=== PATIENT | male | born 1935 | race Caucasian/White ===

== ENCOUNTER 2019-01-28 03:32 | Inpatient (IN) ==
--- NOTE | 2019-01-28 03:47 | Emergency Department Note ---
ED Provider Note Name: Demar Nicholas Age: 83M Arrives Via: EMS Informant: Pt, EMS CC: Cough HPI: 83 male arrives for evaluation of productive cough. Patient with influenza last week and finished course of Tamiflu. Worsening cough over last few days. this evening increasing shortness of breath, even at rest. Worse with exertion. Tonight unable to sleep and notes pounding heart and bilateral arm discomfort. Denies chest pain, syncope, abdominal pain, leg swelling, nausea, vomiting, fevers. No medications prior to arrival. History of CHF, CAD and CVA with previous CABG. ROS: See above HPI for pertinent positives & negatives. A total of 10 systems reviewed and were otherwise negative. Past Medical History: COPD, HTN, HLD, CAD, BPH, GERD Past Surgical History: CABG Family History: States "Everyone Is " Social History: shelter pt, Smoker, denies etoh/drugs, retired Home Medications: Tylenol, aspirin, atorvastatin, carvedilol, vit d3, plavix, docusate, cosept opth, escitalopram, finasteride, lisinopril, tamsulosin Allergies Cephalexin, PNC, Ether Physical: Vitals: BP 167/79, P 135, O2 97%, RR 18, T 36.6 Exam: GENERAL: Patient is unwell appearing and in moderate distress. EYES: No scleral icterus, unremarkable pupils. ENT: Mucous membranes moist, no nasal congestion. NECK: No masses appreciated, no meningismus, trachea is midline. RESPIRATORY: Moderate dyspnea. Productive junky cough, crackles bilateral bases, mild wheezing throughout CARDIOVASCULAR: Tachy. No murmurs, rubs, gallops appreciated. GASTROINTESTINAL: Abdomen soft, non-tender, no peritonitis. Bowel sounds positive. No masses appreciated. BACK: No midline tenderness, no CVA tenderness EXTREMITIES: Normal motion all extremities, no cyanosis, no edema. NEUROLOGIC: Alert and oriented, no acute motor or sensory deficits, no focal weakness, cranial nerves grossly intact. SKIN: No rash, no jaundice, no diaphoresis. ED Course: Prior Medical Record, Triage/Nursing Notes, Medications, Allergies reviewed by Me Vital Signs: reviewed and remarkable for Tachy, Hypertension Labs: Reviewed and remarkable for elevated BNP Interventions: Saline Lock, NSS bolus 1L IV, Lopressor 5mg IV x 3, Aztreonam 2G IV, Vanco 2G IV Imaging: X ray results are stated below per my interpretation: Chest: 1 view: Large right middle/lower lobe infitrate with hazy boarders, no overt pulmonary edema noted. No effusion. This infiltrate is much larger than previously seen mass in right middle lobe on 09/2019. EKG: Per My Interpretation: #1: 03:39: Poor baseline with tachy rhythm 133bpm and mildly widened QRS with lateral ST depressions. QTC 398. This is acutely changed from EKG 09/2019 #2: 04:09: Aflutter RVR with 2:1 block at 135 bpm, lateral ST Depressions, no ectopy otherwise. This is similar though better baseline compared to earlier EKG. QTC is 477 on this ekg #3: 5:01: Aflutter with variable rate and HR 98 bpm, resolution of lateral ST depressions and qtc 428 compared to earlier EKGs Consults: Dr De Leon for further management Reassessments/Times: Multiple bedside evaluations, discussions and treatments. Blood pressure: Normal. No Referral necessary Disposition: Hospitalization Differentials: PNA, PE, Dissection, ACS, Arrythmia, Influenza, Sepsis, amongst other pathologies. Medical Decision Making: Pleasant 83 yr old male with recent diagnosis of mass RML who has made it clear he is DNR. Arrvies with shortness of breath, bilateral shoulder discomfort and tachycardia. Found to be in Aflutter RVR which was eventually slowed after 1 L NSS bolus and 2 rounds lopressor 5mg IV (ended up getting 3rd dose after return to RVR which once again slowed). history of CHF and BNP elevated though I suspect that he is more on the dry side by exam thus IV fluids. He has a large RLL infiltrate which I suspect is overlying his mass and given the hazy boarder I am inclined to this this infectious than solely the enlargement of mass. He does not appear to be septic as wbc/lactate OK and no fever but with tachy and cough I think broad spectrum abx indicated. Likely the infection that has flipped him to aflutter. He likely will need further anticoagulation than what he currently is on (plavix/asa) though with mass and risks I have discussed this with hospitalist cristinoil will further review with patient/family. Impression: Aflutter RVR Pneumonia RLL Right lung Mass Critical Care Time: I have personally spent greater than 30 minutes of critical care time in the direct management of this patient. Aflutter RVR in setting of Pneumonia requiring fluid resus and 3 doses IV Lopressor 5mg. This was a life/limb threatening event. This includes time spent evaluating patient, direct bedside care, chart review, placing orders, interpretation of diagnostic studies, discussion with consultants, patient, and family members, as well as other required patient management activities. This 30 minutes is in excess of all separately billable procedures. Mathieu Geiger MD Impression & Plan Atrial flutter with rapid ventricular response, Right lower lobe pneumonia, 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 Past Med/Surg History Medical History HTN (hypertension) (Acute) Arthritis (Chronic) BPH (benign prostatic hyperplasia) (Chronic) CAD (coronary artery disease) (Chronic) POA believes pt may have had an IL, pt states he was just short of breath and led to CABG being done. CHF (congestive heart failure) (Chronic 07/07/14) Chronic systolic. Compensated. Echo showed EF 50-55% and moderate . 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) [place] [facility] [place] of detached retina repair Social History Preferred Language: Estonian Communication Ability: Effective 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 Equipment Mechanic Required: No Beliefs That Will Affect Care: None marital status: Single Current Living Situation: Personal Care Facility Current Living Situation Comment: does not use ambulatory assist device current occupational status: retired current occupation: Former [employer] years Feels Safe at Home: Yes Safety Concerns: Feels Safe At This Time Smoking Status: Current every day smoker Hx Alcohol Use: No Hx Substance Use: No Results & Data Vital Signs Vital Signs - 24 hr 01/28/19 03:39 01/28/19 04:24 01/28/19 04:50 Temperature 36.6 C Temperature Source Oral Sepsis Recent Fever Within 48 Hours No Sepsis Action Taken by Nursing No Action Required Pulse Rate 135 H 129 H 128 H Pulse Rate [Bilateral] Pulse Rhythm Regular Pulse Rhythm [Bilateral] Pulse Strength Normal Pulse Strength [Bilateral] Respiratory Rate 18 Respiratory Effort / Characteristics Non-Labored Spontaneous Respiratory Depth Normal Respiratory Pattern Agonal Blood Pressure 167/79 H 145/90 H 140/80 Blood Pressure [Right Arm] Blood Pressure Mean 108 Blood Pressure Mean [Right Arm] Blood Pressure Position Lying Blood Pressure Position [Right Arm] Pulse Oximetry 97 Oxygen Delivery Method Room Air 01/28/19 05:00 01/28/19 05:26 01/28/19 05:32 Temperature Temperature Source Sepsis Recent Fever Within 48 Hours Sepsis Action Taken by Nursing Pulse Rate 130 H Pulse Rate [Bilateral] 90 87 Pulse Rhythm Pulse Rhythm [Bilateral] Regular Pulse Strength Pulse Strength [Bilateral] Normal Respiratory Rate 18 18 Respiratory Effort / Characteristics Non-Labored Spontaneous Non-Labored Spontaneous Respiratory Depth Normal Normal Respiratory Pattern Blood Pressure 116/76 Blood Pressure [Right Arm] 133/66 108/65 Blood Pressure Mean Blood Pressure Mean [Right Arm] 88 79 Blood Pressure Position Blood Pressure Position [Right Arm] Sitting Sitting Pulse Oximetry 97 98 Oxygen Delivery Method Room Air Room Air 01/28/19 06:01 01/28/19 06:07 Temperature 36.5 C Temperature Source Oral Sepsis Recent Fever Within 48 Hours Sepsis Action Taken by Nursing Pulse Rate 94 H Pulse Rate [Bilateral] 130 H Pulse Rhythm Pulse Rhythm [Bilateral] Regular Pulse Strength Pulse Strength [Bilateral] Normal Respiratory Rate 18 16 Respiratory Effort / Characteristics Non-Labored Spontaneous Respiratory Depth Normal Respiratory Pattern Regular Blood Pressure 100/74 Blood Pressure [Right Arm] 118/78 Blood Pressure Mean Blood Pressure Mean [Right Arm] 91 Blood Pressure Position Blood Pressure Position [Right Arm] Lying Pulse Oximetry 97 98 Oxygen Delivery Method Room Air Room Air Laboratory Data Result diagrams: 01/28/19 03:20 01/28/19 03:20 Lab Results 01/28/19 01/28/19 01/28/19 Range/Units 03:20 03:20 03:20 WBC 11.61 H (4.8-10.8) K/uL RBC 3.77 L (4.7-6.1) M/uL Hgb 10.6 L (14.0-18.0) g/dL Hct 32.6 L (42-52) % MCV 86.5 (80-100) fL MCH 28.1 (25-34) pg MCHC 32.5 (32-36) g/dL RDW Std Deviation 44.7 (36.4-46.3) fL RDW Coeff of Louise 14.3 (11.5-14.5) % Plt Count 285 (130-400) K/uL MPV 11.5 H (7.4-10.4) fL Immature Gran % (Auto) 0.2 % Neut % (Auto) 81.3 % Lymph % (Auto) 8.4 % [place] % (Auto) 7.6 % Eos % (Auto) 2.4 % Baso % (Auto) 0.1 % Immature Gran # (Auto) 0.02 (0.00-0.02) K/uL Neut # (Auto) 9.45 H (1.4-6.5) K/uL Lymph # (Auto) 0.97 L (1.2-3.4) K/uL [place] # (Auto) 0.88 H (0.11-0.59) K/uL Eos # (Auto) 0.28 (0-0.5) K/uL Baso # (Auto) 0.01 (0-0.2) K/uL Ovalocytes 1+ PT 11.3 (9.0-12.0) Seconds INR 1.1 (0.9-1.1) VBG pH (7.36-7.41) VBG pCO2 (38-50) mmHg VBG pO2 mmHg VBG HCO3 mmol/L VBG O2 Saturation % VBG Base Excess mEq/L Sodium 138 (136-145) mmol/L Potassium 3.7 (3.5-5.1) mmol/L Chloride 107 (98-107) mmol/L Carbon Dioxide 24 (21-32) mmol/L Anion Gap 7.0 (3-11) BUN 21 H (7-18) mg/dl Creatinine 0.79 (0.6-1.4) mg/dl Est Cr Clr Drug Dosing 63.9 ml/min Est GFR ( Amer) 96.2 Est GFR (Non-Af Amer) 83.0 BUN/Creatinine Ratio 26.0 H (10-20) Glucose 112 H (70-99) mg/dl Lactate (0.4-2.0) mmol/L Calcium 7.9 L (8.5-10.1) mg/dl Magnesium 1.9 (1.8-2.4) mg/dl Total Bilirubin 0.5 (0.2-1) mg/dl Direct Bilirubin 0.1 (0-0.2) mg/dl AST 16 (15-37) U/L ALT 20 (12-78) U/L Alkaline Phosphatase 75 (45-117) U/L Troponin I 0.033 (0-0.045) ng/ml NT-Pro-B Natriuret Pep 25595 H (0-1800) pg/ml Total Protein 6.5 (6.4-8.2) gm/dl Albumin 2.5 L (3.4-5.0) gm/dl Lipase 126 (73-393) U/L Urine Color Urine Appearance (Clear) Urine pH (4.5-7.5) Ur Specific Clifford (1.000-1.030) Urine Protein (Negative) Urine Glucose (UA) (Negative) Urine Ketones (Negative) Urine Blood (Negative) Urine Nitrite (Negative) Urine Bilirubin (Negative) Urine Urobilinogen (Negative) Ur Leukocyte Esterase (Negative) Urine WBC (Auto) (0-5) /hpf Urine RBC (Auto) (0-4) /hpf U Hyaline Cast (Auto) (0-5) /lpf U Epithel Cells (Auto) (0-5) /lpf Urine Bacteria (Auto) (Negative) Urine Crystals Granular Casts (0) /lpf Urine Yeast Influenza Type A (PCR) (Neg) Influenza Type B (PCR) (Neg) 01/28/19 01/28/19 01/28/19 Range/Units 04:00 04:00 04:05 WBC (4.8-10.8) K/uL RBC (4.7-6.1) M/uL Hgb (14.0-18.0) g/dL Hct (42-52) % MCV (80-100) fL MCH (25-34) pg MCHC (32-36) g/dL RDW Std Deviation (36.4-46.3) fL RDW Coeff of Louise (11.5-14.5) % Plt Count (130-400) K/uL MPV (7.4-10.4) fL Immature Gran % (Auto) % Neut % (Auto) % Lymph % (Auto) % [place] % (Auto) % Eos % (Auto) % Baso % (Auto) % Immature Gran # (Auto) (0.00-0.02) K/uL Neut # (Auto) (1.4-6.5) K/uL Lymph # (Auto) (1.2-3.4) K/uL [place] # (Auto) (0.11-0.59) K/uL Eos # (Auto) (0-0.5) K/uL Baso # (Auto) (0-0.2) K/uL Ovalocytes PT (9.0-12.0) Seconds INR (0.9-1.1) VBG pH 7.43 H (7.36-7.41) VBG pCO2 39 (38-50) mmHg VBG pO2 27 mmHg VBG HCO3 25 mmol/L VBG O2 Saturation < 60.0 % VBG Base Excess 1.0 mEq/L Sodium (136-145) mmol/L Potassium (3.5-5.1) mmol/L Chloride (98-107) mmol/L Carbon Dioxide (21-32) mmol/L Anion Gap (3-11) BUN (7-18) mg/dl Creatinine (0.6-1.4) mg/dl Est Cr Clr Drug Dosing ml/min Est GFR ( Amer) Est GFR (Non-Af Amer) BUN/Creatinine Ratio (10-20) Glucose (70-99) mg/dl Lactate 1.0 (0.4-2.0) mmol/L Calcium (8.5-10.1) mg/dl Magnesium (1.8-2.4) mg/dl Total Bilirubin (0.2-1) mg/dl Direct Bilirubin (0-0.2) mg/dl AST (15-37) U/L ALT (12-78) U/L Alkaline Phosphatase (45-117) U/L Troponin I (0-0.045) ng/ml NT-Pro-B Natriuret Pep (0-1800) pg/ml Total Protein (6.4-8.2) gm/dl Albumin (3.4-5.0) gm/dl Lipase (73-393) U/L Urine Color Urine Appearance (Clear) Urine pH (4.5-7.5) Ur Specific Clifford (1.000-1.030) Urine Protein (Negative) Urine Glucose (UA) (Negative) Urine Ketones (Negative) Urine Blood (Negative) Urine Nitrite (Negative) Urine Bilirubin (Negative) Urine Urobilinogen (Negative) Ur Leukocyte Esterase (Negative) Urine WBC (Auto) (0-5) /hpf Urine RBC (Auto) (0-4) /hpf U Hyaline Cast (Auto) (0-5) /lpf U Epithel Cells (Auto) (0-5) /lpf Urine Bacteria (Auto) (Negative) Urine Crystals Granular Casts (0) /lpf Urine Yeast Influenza Type A (PCR) Neg for Influ A (Neg) Influenza Type B (PCR) Neg for Influ B (Neg) 01/28/19 Range/Units 04:38 WBC (4.8-10.8) K/uL RBC (4.7-6.1) M/uL Hgb (14.0-18.0) g/dL Hct (42-52) % MCV (80-100) fL MCH (25-34) pg MCHC (32-36) g/dL RDW Std Deviation (36.4-46.3) fL RDW Coeff of Louise (11.5-14.5) % Plt Count (130-400) K/uL MPV (7.4-10.4) fL Immature Gran % (Auto) % Neut % (Auto) % Lymph % (Auto) % [place] % (Auto) % Eos % (Auto) % Baso % (Auto) % Immature Gran # (Auto) (0.00-0.02) K/uL Neut # (Auto) (1.4-6.5) K/uL Lymph # (Auto) (1.2-3.4) K/uL [place] # (Auto) (0.11-0.59) K/uL Eos # (Auto) (0-0.5) K/uL Baso # (Auto) (0-0.2) K/uL Ovalocytes PT (9.0-12.0) Seconds INR (0.9-1.1) VBG pH (7.36-7.41) VBG pCO2 (38-50) mmHg VBG pO2 mmHg VBG HCO3 mmol/L VBG O2 Saturation % VBG Base Excess mEq/L Sodium (136-145) mmol/L Potassium (3.5-5.1) mmol/L Chloride (98-107) mmol/L Carbon Dioxide (21-32) mmol/L Anion Gap (3-11) BUN (7-18) mg/dl Creatinine (0.6-1.4) mg/dl Est Cr Clr Drug Dosing ml/min Est GFR ( Amer) Est GFR (Non-Af Amer) BUN/Creatinine Ratio (10-20) Glucose (70-99) mg/dl Lactate (0.4-2.0) mmol/L Calcium (8.5-10.1) mg/dl Magnesium (1.8-2.4) mg/dl Total Bilirubin (0.2-1) mg/dl Direct Bilirubin (0-0.2) mg/dl AST (15-37) U/L ALT (12-78) U/L Alkaline Phosphatase (45-117) U/L Troponin I (0-0.045) ng/ml NT-Pro-B Natriuret Pep (0-1800) pg/ml Total Protein (6.4-8.2) gm/dl Albumin (3.4-5.0) gm/dl Lipase (73-393) U/L Urine Color Yellow Urine Appearance Turbid H (Clear) Urine pH 5.0 (4.5-7.5) Ur Specific Clifford 1.020 (1.000-1.030) Urine Protein Trace H (Negative) Urine Glucose (UA) Negative (Negative) Urine Ketones Trace H (Negative) Urine Blood 2+ H (Negative) Urine Nitrite Negative (Negative) Urine Bilirubin Negative (Negative) Urine Urobilinogen Negative (Negative) Ur Leukocyte Esterase 1+ H (Negative) Urine WBC (Auto) >30 H (0-5) /hpf Urine RBC (Auto) 10-30 H (0-4) /hpf U Hyaline Cast (Auto) 1-5 (0-5) /lpf U Epithel Cells (Auto) 5-10 H (0-5) /lpf Urine Bacteria (Auto) 1+ H (Negative) Urine Crystals Not Reportable Granular Casts 1-5 H (0) /lpf Urine Yeast Not Reportable Influenza Type A (PCR) (Neg) Influenza Type B (PCR) (Neg) Administered Medications Vancomycin HCl 1,500 mg/ (Sodium Chloride) 530 mls @ 200 mls/hr IV NOW ONE Stop: 01/28/19 06:56 Last Admin: 01/28/19 05:55 Dose: 200 mls/hr Documented by: [id number] Discontinued Medications Sodium Chloride (Nss 1000ml) 1,000 mls @ 999 mls/hr IV .[id number] ONE Stop: 01/28/19 05:07 Last Infusion: 01/28/19 05:16 Dose: 0 mls/hr Documented by: [id number] Admin: 01/28/19 04:09 Dose: 999 mls/hr Documented by: [id number] Aztreonam 2,000 mg/ Dextrose 120 mls @ 100 mls/hr IV NOW STA Stop: 01/28/19 05:29 Last Infusion: 01/28/19 05:55 Dose: 0 mls/hr Documented by: [id number] Admin: 01/28/19 04:41 Dose: 100 mls/hr Documented by: [id number] Metoprolol Tartrate (Lopressor) 5 mg IV NOW STA Stop: 01/28/19 04:17 Last Admin: 01/28/19 04:24 Dose: 5 mg Documented by: [id number] Metoprolol Tartrate (Lopressor) 5 mg IV NOW STA Stop: 01/28/19 04:46 Last Admin: 01/28/19 04:50 Dose: 5 mg Documented by: [id number] Metoprolol Tartrate (Lopressor) 5 mg IV NOW STA Stop: 01/28/19 05:23 Last Admin: 01/28/19 05:26 Dose: 5 mg Documented by: [id number] Discharge Plan Visit Data Chief Complaint: Chest Pain ED Provider: Mathieu Geiger Discharge Problem: Atrial flutter with rapid ventricular response, Right lower lobe pneumonia, 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 Patient Disposition: Admitted As Inpatient Discharge Instructions Interventions: ED Discharge Assessment Last Done: 01/28/19 06:01 Forms Stand Alone Forms: My [employer] Prescriptions Prescriptions: No Action atorvastatin 40 mg Tablet 40 mg PO QPM RF: 0 carvedilol 6.25 mg Tablet 6.25 mg PO BIDM RF: 0 clopidogrel 75 mg Tablet 75 mg PO QAM RF: 0 aspirin [Aspirin Low Dose] 81 mg Tablet,Delayed Release (Dr/Ec) 81 mg PO QAM RF: 0 acetaminophen 500 mg Tablet 500 mg PO Q4 MDD 3g/24hr PRN (Reason: Fever Or Pain) RF: 0 tamsulosin 0.4 mg Capsule 0.4 mg PO QPM RF: 0 docusate sodium 100 mg Capsule 100 mg PO BID RF: 0 lisinopril 5 mg Tablet 5 mg PO QAM RF: 0 finasteride 5 mg Tablet 5 mg PO QAM RF: 0 brimonidine 0.15 % Drops 1 drp OPHTHALMIC (EYE) TID RF: 0 cholecalciferol (vitamin D3) [Vitamin D3] 1,000 unit Capsule 1,000 unit PO QAM RF: 0 glucosamine sulfate 1,000 mg Capsule 1,000 mg PO BID RF: 0 escitalopram oxalate 5 mg Tablet 5 mg PO QAM RF: 0 dorzolamide-timolol (PF) [Cosopt (PF)] 2-0.5 % Dropperette 1 drp OPL BID RF: 0 PreserVision AREDS-2 [id number] Capsule 1 tab PO BID RF: 0 potassium chloride 10 mEq Capsule, Extended Release 10 meq PO DAILY RF: 0 furosemide 40 mg Tablet 40 mg PO Q OTHER DAY RF: 0 furosemide 20 mg Tablet 20 mg PO Q OTHER DAY RF: 0 Benadryl Itch Stopping 1-0.1 % Cream 1 applic TOPICAL TID PRN (Reason: Itching) RF: 0 hydrocortisone 1 % Cream 1 applic TOPICAL TID PRN (Reason: itching/dry skin) RF: 0 Referrals Referrals: Rodrick Salcido [Primary Care Provider] -
[2019-01-28 03:54] LABS: Hematocrit (blood only) 32.6 % (42-52); Hemoglobin 10.6 g/dL (14.0-18.0); Mean Corpuscular Hgb Conc 32.5 g/dL (32-36); Mean Corpuscular Volume 86.5 fL (80-100); Mean Platelet Volume 11.5 fL (7.4-10.4); Platelet Count 285 K/uL (130-400); RDW Coefficient of Variation 14.3 % (11.5-14.5); RDW Standard Deviation 44.7 fL (36.4-46.3); Red Blood Count 3.77 M/uL (4.7-6.1); White Blood Count 11.61 K/uL (4.8-10.8)
[2019-01-28 04:02] LABS: INR 1.1 (0.9-1.1); Prothrombin Time 11.3 Seconds (9.0-12.0)
[2019-01-28] MEDS ORDERED: SODIUM CHLORIDE 0.9% 1000ML 1,000 ML IV ONE (04:07)
[2019-01-28 04:14] LABS: Albumin Level 2.5 gm/dl (3.4-5.0); Bilirubin Direct 0.1 mg/dl (0-0.2); Calcium 7.9 mg/dl (8.5-10.1); Creatinine Clr Calc Pharmacy 63.9 ml/min; Est GFR (African American) 96.2; Magnesium 1.9 mg/dl (1.8-2.4); Potassium 3.7 mmol/L (3.5-5.1)
[2019-01-28] MEDS ORDERED: METOPROLOL TARTRATE 1 MG/ML VIAL IV STA ×3 (04:16→05:22)
[2019-01-28] MEDS ORDERED: AZTREONAM 2,000 MG in DEXTROSE 5% 100 ML IV STA (04:18)
[2019-01-28] MEDS ORDERED: VANCOMYCIN HCL 1,500 MG in SODIUM CHLORIDE 0.9% 500 ML IV ONE (04:18)
[2019-01-28] MEDS ORDERED: VANCOMYCIN CONSULT ACTIVE PRN ×2 (04:18→09:33)
[2019-01-28 04:19] LABS: Bilirubin,Total 0.5 mg/dl (0.2-1); Total Protein 6.5 gm/dl (6.4-8.2); Troponin I 0.033 ng/ml (0-0.045)
[2019-01-28 04:25] LABS: HCO3 VBG 25 mmol/L; PCO2 VBG 39 mmHg (38-50); PO2 VBG 27 mmHg; pH VBG 7.43 (7.36-7.41)
[2019-01-28 04:34] LABS: Basophils # (auto) 0.01 K/uL (0-0.2); Basophils % (auto) 0.1 %; Eosinophils # (auto) 0.28 K/uL (0-0.5); Eosinophils % (auto) 2.4 %; Immature Granulocytes # (auto) 0.02 K/uL (0.00-0.02); Immature Granulocytes % (auto) 0.2 %; Lymphocytes # (auto) 0.97 K/uL (1.2-3.4); Lymphocytes % (auto) 8.4 %; Monocytes # (auto) 0.88 K/uL (0.11-0.59); Monocytes % (auto) 7.6 %; Neutrophils # (auto) 9.45 K/uL (1.4-6.5); Neutrophils % (auto) 81.3 %; Ovalocytes 1+
[2019-01-28 04:49] LABS: Oxygen Saturation VBG < 60.0 %
[2019-01-28 04:57] LABS: Appearance Urine Turbid (Clear); Bacteria Urine Automated 1+ (Negative); Bilirubin Urine Negative (Negative); Blood Urine 2+ (Negative); Color Urine Yellow; Glucose Urine UA Negative (Negative); Ketones Urine Trace (Negative); Leukocyte Esterase Urine 1+ (Negative); Nitrite Urine Negative (Negative); Protein Urine Trace (Negative); Urobilinogen Urine Negative (Negative); WBC Urine Automated >30 /hpf (0-5)
[2019-01-28 05:25] LABS: Influenza A virus by PCR Neg for Influ A (Neg); Influenza B virus by PCR Neg for Influ B (Neg)
--- NOTE | 2019-01-28 06:23 | History & Physical Report ---
Date of Service January 28, 2019 Assessment & Plan (1) Atrial flutter with rapid ventricular response: New onset atrial flutter with RVR, initially with 2:1 conduction. K and Mg normal. Ventricular rate slowed with metoprolol 5 mg IV x 3. Try diltiazem infusion. Start IV heparin. Consult Cardiology. (2) CAD (coronary artery disease): History of CABG. Denies anginal symptoms. Continue aspirin. Consider stopping clopidogrel in light of anticoagulation. Continue carvedilol and statin. (3) Chronic systolic heart failure: Records indicate history of chronic left ventricular heart failure, although ec ho in Sep 2018 showed improved LVEF. Continue carvedilol and lisinopril. Hold furosemide in light of atrial flutter with RVR and diurese PRN. (4) Aortic stenosis, moderate: History of moderate with bicuspid aortic valve. Hemodynamically stable. (5) HTN (hypertension): Usually managed with carvedilol and lisinopril. Starting diltiazem for atrial flutter. Follow and titrate Rx. (6) Right lower lobe pneumonia: Previously diagnosed with right perihilar mass. Now with worsening density RLL. Recently treated for influenza. Productive cough. May have flu-associated pneumonia or postobstructive pneumonia. Afebrile in ED. Tachycardic and tachypneic, but in setting of atrial flutter. Mild leukocytosis. Serum lactate 1.0. Does not appear to be septic. Blood cultures obtained. Sputum gram stain / culture ordered. Check nasal MRSA screen. Allergic to penicillin and cephalosporins (urticaria). Received IV vancomycin and aztreonam in ED. Continue vancomycin for gram + coverage. Add ertapenem for gram negative and anaerobic coverage. Check CT chest when status permits. (7) Lung mass: Found to have 6.6 cm right perihilar mass September 2018. Significant smoking history. Bronchoscopy discussed in the interest of pursuing a tissue diagnosis, but patient declined diagnostic evaluation. Now with increasing density in the right base which could represent progressive tumor and/or postobstructive pneumonia. Check follow-up CT of chest when cardiac status allows. (8) COPD (chronic obstructive pulmonary disease): Former smoker. Oxygenating adequately despite acute cardiac and pulmonary issues. Consider adding steroids if condition worsens. Try to avoid beta agonists if possible in light of tachyarrhythmia. 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 Was in sinus rhythm at that time. Treated with aspirin and clopidogrel. Now with atrial flutter. Starting IV heparin; long-term anticoagulation strategy to be determined. Continue aspirin. Consider discontinuing clopidogrel in light of triple antithrombotic therapy. (10) BPH (benign prostatic hyperplasia): BPH with urinary retention followed by [facility]. TURP considered, but postponed in light of recent stroke. Continue Morales catheter. (11) Hyperlipidemia: Continue atorvastatin. (12) Leg ulcer: Chronic ulcer right leg, ? venous stasis. Consult Wound Care Nursing. (13) Diarrhea: Patient reports frequent loose stools. Recent course of clindamycin for cellulitis of RLE. Check stools for C diff. 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 (15) DVT prophylaxis: Starting IV heparin for atrial flutter. Ambulate with assistance as tolerated. (16) Discharge planning issues: To be determined. Probable return to [facility] if functional status allows. Family Medicine follow-up with Dr. Salcido. History of Present Illness Chief Complaint: cough and SOB Primary Care Provider: Rodrick Salcido 83-year-old male followed by Dr. Salcido for Family Medicine. History of coronary artery disease, CHF, hypertension, cerebrovascular disease, COPD, pulmonary mass, and other problems. Currently a resident at [facility]. Hospitalized at [facility] in September 2018. He was initially hospitalized for evaluation of hip pain after a fall. He fell again during his hospital stay. CT showed chronic microvascular changes, suspected meningioma left frontal lobe. MRI demonstrated an acute infarct of the right [employer] territory affecting the right occipital lobe as well as additional suspected regional embolic infarcts, old left cerebellar infarct, chronic small vessel disease, 2 cm left frontal mass consistent with meningioma. CTA of cervical vessels demonstrated high-grade stenosis of the vertebral arteries. No apparent cardioembolic source per echocardiogram. Rhythm on 12-lead EKG sinus bradycardia. During that hospital stay he was found to have a right perihilar mass measuring 6.6 cm. Significant smoking history. Diagnostic options were discussed and patient opted not to pursue a tissue diagnosis. He was discharged to rehab on 10/05/18 and later transferred to [facility]. Last week he was treated for influenza. Sent to ED tonight because of worsening cough and shortness of breath. Cough productive of yellow sputum. No chest pain. In the ED he was found to be tachycardic with a heart rate of 140. Received IV metoprolol with slowing of his ventricular rate, making underlying flutter waves apparent. Allergies Allergy/AdvReac Type Severity Reaction Status Date / Time cephalexin [From Keflex] Allergy Mild Hives Verified 01/28/19 04:12 Penicillins Allergy Mild HIVES Verified 01/28/19 04:12 ether AdvReac Unknown Verified 01/28/19 04:12 Home Medications Home Medications Medication Instructions Recorded Confirmed Type acetaminophen 500 mg PO Q4 PRN MDD 3g/24hr 11/12/18 01/28/19 History aspirin [Aspirin Low Dose] 81 mg PO QAM 11/12/18 01/28/19 History atorvastatin 40 mg PO QPM 11/12/18 01/28/19 History brimonidine 1 drp OPHTHALMIC (EYE) TID 11/12/18 01/28/19 History carvedilol 6.25 mg PO BIDM 11/12/18 01/28/19 History cholecalciferol (vitamin D3) 1,000 unit PO QAM 11/12/18 01/28/19 History [Vitamin D3] clopidogrel 75 mg PO QAM 11/12/18 01/28/19 History docusate sodium 100 mg PO BID 11/12/18 01/28/19 History dorzolamide-timolol (PF) [Cosopt 1 drp OPL BID 11/12/18 01/28/19 History (PF)] escitalopram oxalate 5 mg PO QAM 11/12/18 01/28/19 History finasteride 5 mg PO QAM 11/12/18 01/28/19 History glucosamine sulfate 1,000 mg PO BID 11/12/18 01/28/19 History lisinopril 5 mg PO QAM 11/12/18 01/28/19 History tamsulosin 0.4 mg PO QPM 11/12/18 01/28/19 History vit C,M-Qa-gptiq-lutein-zeaxan 1 tab PO BID 11/12/18 01/28/19 History [PreserVision AREDS-2] diphenhydramine-zinc acetate 1 applic TOPICAL TID PRN 03/05/19 03/05/19 History [Benadryl Itch Stopping] furosemide 20 mg PO Q OTHER DAY 01/28/19 01/28/19 History furosemide 40 mg PO Q OTHER DAY 01/28/19 01/28/19 History hydrocortisone 1 applic TOPICAL TID PRN 01/28/19 01/28/19 History potassium chloride 10 meq PO DAILY 01/28/19 01/28/19 History Past Med/Surg History Medical History Lung mass (Chronic) 6.6 cm right perihilar mass per CT Sep 2018. Patient declined bronchoscopy Arthritis (Chronic) BPH (benign prostatic hyperplasia) (Chronic) With urinary retention requiring Morales cath. Followed by Dr. Alvarado. CHF (congestive heart failure) (Chronic 07/07/14) Chronic systolic. Compensated. Echo showed EF 50-55% and moderate . Hyperlipidemia (Chronic) COPD (chronic obstructive pulmonary disease) (Chronic) CAD (coronary artery disease) (Chronic) POA believes pt may have had an AK, pt states he was just short of breath and led to CABG being done. GERD (gastroesophageal reflux disease) (Chronic) Glaucoma (Chronic) HTN (hypertension) (Chronic) Stroke (Chronic) Acute ischemic stroke right [employer] territory Sep 2018; old cerebellar stroke noted at that time as well. Morales catheter in place (Chronic) Aortic stenosis, moderate (Chronic) History of sigmoidoscopy (Chronic) Macular degeneration (Chronic) Numbness and tingling in hands (Resolved 07/07/14) Surgical History History of cataract extraction (Chronic) Hx of four vessel coronary artery bypass graft (Chronic) [place] [facility] [place] of detached retina repair Social History Preferred Language: Moldovan Communication Ability: Effective Java Sdet Required: No Beliefs That Will Affect Care: None marital status: Single Current Living Situation: Personal Care Facility Current Living Situation Comment: does not use ambulatory assist device current occupational status: retired current occupation: Former [employer] years Feels Safe at Home: Yes Safety Concerns: Feels Safe At This Time Smoking Status: Current every day smoker Hx Alcohol Use: No Hx Substance Use: No Review of Systems Constitutional: no fever and no weight loss Eyes: + worsening vision (macular degeneration); no diplopia Ear, Nose, Mouth, Throat: no nasal congestion, no sinus pain/pressure and no sore throat Respiratory: as per Subjective / HPI Cardiovascular: as per Subjective / HPI Gastrointestinal: + diarrhea/loose stools; no nausea, no vomiting, no constipation, no blood in stools and no melena Genitourinary (Male): + problem reported (Morales cath for urinary retention) Musculoskeletal: + joint pain; no myalgia ulcer right leg Neurologic: + gait abnormality (needs assistance with ambulation); no headache(s) Endocrine: no polydipsia and no polyuria Hematologic / Lymphatic: + easy bruising; no easy bleeding and no lymphadenopathy Physical Exam Vital Signs (Past 24 Hours): Last Vital Signs Temp 36.6 C 01/28/19 03:39 Pulse 94 H 01/28/19 06:01 Resp 18 01/28/19 06:01 BP 100/74 01/28/19 06:01 Pulse Ox 97 01/28/19 06:01 Constitutional: WD/WN, vitals as above no acute distress Eyes: PERRL, conjunctivae normal, anicteric sclerae ENMT: Ears: + hearing impairment Mouth: + dentition abnormality (poor) Neck: trachea midline, no thyromegaly Respiratory: normal respiratory effort, lungs clear to auscultation no respiratory distress Auscultation: + rhonchi (right base) Cardiovascular: Rate/Rhythm: + tachycardic; + abnormal rhythm (irregular) Heart Sounds: + murmur (II/ sys murmur(s) heard at base and apex); no gallop and no cardiac rub Vessels: normal peripheral pulses (pedal pulses diminished); no JVD Extremities: normal capillary refill (bilat toes about 2 sec); no calf tenderness and no edema Gastrointestinal (Abdomen): normal bowel sounds, soft, nontender, no hepatosplenomegaly Musculoskeletal: Head/Neck/Chest: neck supple Extremities: + abnormal strength (mild weakness of lower extremities), no cyanosis and no clubbing Skin: no rashes, warm and dry + ulcer (superficial ulcer right leg, clean base) Neurologic: PERRL, EOMI no facial palsy no dysarthria or aphasia patellar DTR's 2/2 bilat Psychiatric: Orientation: alert, oriented to person and oriented to place; + not oriented to time Affect: euthymic affect Genitourinary: Morales cath Lymphatic: no cervical lymphadenopathy Results & Data Laboratory Results Laboratory Results - last 24 hr 01/28/19 01/28/19 01/28/19 03:20 03:20 03:20 WBC 11.61 H RBC 3.77 L Hgb 10.6 L Hct 32.6 L MCV 86.5 MCH 28.1 MCHC 32.5 RDW Std Deviation 44.7 RDW Coeff of Louise 14.3 Plt Count 285 MPV 11.5 H Immature Gran % (Auto) 0.2 Neut % (Auto) 81.3 Lymph % (Auto) 8.4 [place] % (Auto) 7.6 Eos % (Auto) 2.4 Baso % (Auto) 0.1 Immature Gran # (Auto) 0.02 Neut # (Auto) 9.45 H Lymph # (Auto) 0.97 L [place] # (Auto) 0.88 H Eos # (Auto) 0.28 Baso # (Auto) 0.01 Ovalocytes 1+ PT 11.3 INR 1.1 VBG pH VBG pCO2 VBG pO2 VBG HCO3 VBG O2 Saturation VBG Base Excess Sodium 138 Potassium 3.7 Chloride 107 Carbon Dioxide 24 Anion Gap 7.0 BUN 21 H Creatinine 0.79 Est Cr Clr Drug Dosing 63.9 Est GFR ( Amer) 96.2 Est GFR (Non-Af Amer) 83.0 BUN/Creatinine Ratio 26.0 H Glucose 112 H Lactate Calcium 7.9 L Magnesium 1.9 Total Bilirubin 0.5 Direct Bilirubin 0.1 AST 16 ALT 20 Alkaline Phosphatase 75 Troponin I 0.033 NT-Pro-B Natriuret Pep 23495 H Total Protein 6.5 Albumin 2.5 L Lipase 126 Urine Color Urine Appearance Urine pH Ur Specific Cecil Urine Protein Urine Glucose (UA) Urine Ketones Urine Blood Urine Nitrite Urine Bilirubin Urine Urobilinogen Ur Leukocyte Esterase Urine WBC (Auto) Urine RBC (Auto) U Hyaline Cast (Auto) U Epithel Cells (Auto) Urine Bacteria (Auto) Urine Crystals Granular Casts Urine Yeast Influenza Type A (PCR) Influenza Type B (PCR) 01/28/19 01/28/19 01/28/19 04:00 04:00 04:05 WBC RBC Hgb Hct MCV MCH MCHC RDW Std Deviation RDW Coeff of Louise Plt Count MPV Immature Gran % (Auto) Neut % (Auto) Lymph % (Auto) [place] % (Auto) Eos % (Auto) Baso % (Auto) Immature Gran # (Auto) Neut # (Auto) Lymph # (Auto) [place] # (Auto) Eos # (Auto) Baso # (Auto) Ovalocytes PT INR VBG pH 7.43 H VBG pCO2 39 VBG pO2 27 VBG HCO3 25 VBG O2 Saturation < 60.0 VBG Base Excess 1.0 Sodium Potassium Chloride Carbon Dioxide Anion Gap BUN Creatinine Est Cr Clr Drug Dosing Est GFR ( Amer) Est GFR (Non-Af Amer) BUN/Creatinine Ratio Glucose Lactate 1.0 Calcium Magnesium Total Bilirubin Direct Bilirubin AST ALT Alkaline Phosphatase Troponin I NT-Pro-B Natriuret Pep Total Protein Albumin Lipase Urine Color Urine Appearance Urine pH Ur Specific Cecil Urine Protein Urine Glucose (UA) Urine Ketones Urine Blood Urine Nitrite Urine Bilirubin Urine Urobilinogen Ur Leukocyte Esterase Urine WBC (Auto) Urine RBC (Auto) U Hyaline Cast (Auto) U Epithel Cells (Auto) Urine Bacteria (Auto) Urine Crystals Granular Casts Urine Yeast Influenza Type A (PCR) Neg for Influ A Influenza Type B (PCR) Neg for Influ B 01/28/19 04:38 WBC RBC Hgb Hct MCV MCH MCHC RDW Std Deviation RDW Coeff of Louise Plt Count MPV Immature Gran % (Auto) Neut % (Auto) Lymph % (Auto) [place] % (Auto) Eos % (Auto) Baso % (Auto) Immature Gran # (Auto) Neut # (Auto) Lymph # (Auto) [place] # (Auto) Eos # (Auto) Baso # (Auto) Ovalocytes PT INR VBG pH VBG pCO2 VBG pO2 VBG HCO3 VBG O2 Saturation VBG Base Excess Sodium Potassium Chloride Carbon Dioxide Anion Gap BUN Creatinine Est Cr Clr Drug Dosing Est GFR ( Amer) Est GFR (Non-Af Amer) BUN/Creatinine Ratio Glucose Lactate Calcium Magnesium Total Bilirubin Direct Bilirubin AST ALT Alkaline Phosphatase Troponin I NT-Pro-B Natriuret Pep Total Protein Albumin Lipase Urine Color Yellow Urine Appearance Turbid H Urine pH 5.0 Ur Specific Cecil 1.020 Urine Protein Trace H Urine Glucose (UA) Negative Urine Ketones Trace H Urine Blood 2+ H Urine Nitrite Negative Urine Bilirubin Negative Urine Urobilinogen Negative Ur Leukocyte Esterase 1+ H Urine WBC (Auto) >30 H Urine RBC (Auto) 10-30 H U Hyaline Cast (Auto) 1-5 U Epithel Cells (Auto) 5-10 H Urine Bacteria (Auto) 1+ H Urine Crystals Not Reportable Granular Casts 1-5 H Urine Yeast Not Reportable Influenza Type A (PCR) Influenza Type B (PCR) Diagnostic Findings Portable chest x-ray reviewed by the undersigned; formal interpretation by Radiology pending: right perihilar density increased density RLL ECG Additional Comments: EKG performed at 0339 reviewed and demonstrated narrow complex tachycardia at 130/minute, LVH, ST depression in inferior and lateral leads. EKG performed at 0409 was similar in appearance. EKG performed at 0501 demonstrated atrial flutter with variable conduction, less pronounced ST depression inferiorly and laterally. Code Status & VTE Plan Code Status DNR per patient's wishes- confirmed with patient and his POA. VTE Prophylaxis Plan VTE Prophylaxis will be ordered: Yes (1) Right lower lobe pneumonia Pneumonia type: due to unspecified organism Qualified Code(s): J18.1 - Lobar pneumonia, unspecified organism (2) HTN (hypertension) Hypertension type: essential hypertension Qualified Code(s): I10 - Essential (primary) hypertension
--- NOTE | 2019-01-28 06:34 | XRay Report ---
XR chest 1V portable HISTORY: 83 years-old Male Tachycardia acute tachycardia COMPARISON: Chest radiograph 09/27/2018, chest CT 09/26/2018 TECHNIQUE: Portable AP view of the chest FINDINGS: Cardiac silhouette is mildly enlarged, unchanged. Prior median sternotomy and CABG. Emphysema. No pne umothorax, pleural effusion or overt pulmonary edema. Masslike opacity about the right infrahilar dis tribution redemonstrated measuring approximately 6.4 x 4.9 cm, previously approximately 5.8 x 3.8 cm on 09/27/2018. Unchanged 1.3 cm pulmonary nodule of the left lower lobe. Right greater left bibasilar patchy alveolar opacities are noted. Degenerative changes of the shoulders and spine. IMPRESSION: 1. Right infrahilar mass appears to have increased in size from comparison study. 2. Pulmonary nodule of the left lower lobe appears unchanged. 3. New right greater than left patchy bibasilar alveolar opacities are suggestive of pneumonitis in t he appropriate clinical setting. The above report was generated using voice recognition software. It may contain grammatical, syntax o r spelling errors. Electronically signed by: William Renee M.D. 01/28/2019 6:32 AM
[2019-01-28] MEDS ORDERED: HYDROCORTISONE 1% CRM 30 GM TUBE EXT PRN (07:43)
[2019-01-28] MEDS ORDERED: CARVEDILOL 6.25 MG TAB PO SCH (08:00)
[2019-01-28] MEDS ORDERED: Heparin IV Low Dose WITH Bolus IV STA (08:35)
[2019-01-28] MEDS ORDERED: CLOPIDOGREL BISULFATE 75 MG TAB PO SCH (09:00)
[2019-01-28] MEDS ORDERED: dilTIAZem HCl 5 MG/ML 5 ML VIAL IV ONE (09:00)
[2019-01-28] MEDS: ESCITALOPRAM OXALATE 10 MG TAB PO SCH (09:03)
[2019-01-28] MEDS: FINASTERIDE 5 MG TAB PO SCH (09:04)
[2019-01-28] MEDS: LISINOPRIL 5 MG TAB PO SCH (09:04)
[2019-01-28] MEDS: ASPIRIN 81 MG ECTAB PO SCH (09:04)
[2019-01-28] MEDS: CHOLECALCIFEROL 1,000 UNITS TAB PO SCH (09:04)
[2019-01-28] MEDS: BRIMONIDINE TARTRATE-P 0.15% 5 ML BTL OP SCH ×3 (09:04→20:44)
[2019-01-28] MEDS: DORZOLAMIDE/TIMOLOL 22.3/6.8MG/ML 10 ML BTL OPL SCH ×2 (09:05→20:47)
[2019-01-28] MEDS: CEROVITE ADV FORMULA TAB PO SCH ×2 (09:23→20:49)
[2019-01-28] MEDS: dilTIAZem HCl 125 MG in DEXTROSE 5% 100 ML IV SCH (09:23)
[2019-01-28] MEDS: HEPARIN STANDARD DEXTROSE 25,000 UNITS/500 ML IV SCH (09:25)
[2019-01-28] MEDS ORDERED: HEPARIN IV BOLUS 4,000 UNITS in SYRINGE 0 ML IV ONE (09:30)
[2019-01-28] MEDS: ERTAPENEM SODIUM 1,000 MG in SODIUM CHLORIDE 0.9% 50 ML IV SCH (11:10)
--- NOTE | 2019-01-28 12:02 | Hospitalist Progress Note ---
Date of Service January 28, 2019 Assessment & Plan (1) Atrial flutter with rapid ventricular response: Persistent atrial flutter, rate controlled on diltiazem drip. Plan to transition to metoprolol Cont IV heparin pending further cardiac recommendations (2) CAD (coronary artery disease): h/o CABG, currently agitated but denies any chest pain. Cont medical management including ASA, Plavix, Metoprolol, lisinopril and statin. (3) Chronic systolic heart failure: improved EF with medications. Cont medical management as above. Decreased home diuretics for now. (4) Aortic stenosis, moderate: (5) HTN (hypertension): Controlled, cont current medications as above. (6) Right lower lobe pneumonia: Recently treated for flu and previous diagnoses of a R perihilar mass. Declined diagnostic bronchoscopy. Now with worsened RLL density. He is very agitated and is yelling that he doesn't want to be bothered. His rate is controlled but he is still on drips. Would consider CT scan if he will allow it tomorrow to better elucidate the issues in this area. Pt does not appear septic. However, respiratory infection may be driving arrythmia. Cont Vanc and Ertapenem pending culture results and clinical improvement. (7) Lung mass: As above, h/o smoking. Declined bronchoscopy in the past. (8) COPD (chronic obstructive pulmonary disease): chronic, no active wheezing, oxygenating well on room air. 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 Was in sinus rhythm at that time. Treated with aspirin and clopidogrel. Now with atrial flutter. Starting IV heparin; long-term anticoagulation strategy to be determined. Continue aspirin. (10) BPH (benign prostatic hyperplasia): BPH with urinary retention followed by [facility]. TURP considered, but postponed in light of recent stroke. Continue Morales catheter. (11) Leg ulcer: Chronic ulcer right leg-pt would not let me evaluate this tonight. Consult Wound Care Nursing. (12) Diarrhea: appears to have resolved. C-diff remains uncollected. (13) DVT prophylaxis: Heparin drip DNR Dispo: pending Cardiology recommendations and workup/clincal improvement related to lung mass Probable return to [facility] if functional status allows. Family Medicine follow-up with Dr. Salcido. Marilee Ocampo DO [place] Hospitalist Subjective upset and states he wants to be left alone gave permission for an abridged exam. doesn't want to answer my questions Physical Exam Vital Signs (Past 24 Hours): Last Vital Signs Temp 36.5 C 01/28/19 06:07 Pulse 130 H 01/28/19 06:07 Resp 16 01/28/19 06:07 BP 118/78 01/28/19 06:07 Pulse Ox 98 01/28/19 06:07 CONSTITUTIONAL: WNWD, vitals as above,appears emotionally distressed. Yelling to be left alone. Yelling out that he is upset but not able to tell me why. EYES: normal conjuctivae, no scleral icterus RESPIRATORY: clear to auscultation bilaterally, no crackles, rales or wheezes, normal respiratory effort, limited exam as patient cannot sit up and is not happy about being examined (although did give permission) CARDIOVASCULAR: regular rate, irregular rhythm, S1 and 2 heard without murmurs, gallops or rubs, no JVD, no peripheral edema GASTROINTESTINAL: normal bowel sounds, soft, nontender, nontender MUSCULOSKELETAL: moves all extremities easily, difficulty sitting up on his own in bed. SKIN: warm and dry NEUROLOGIC: alert and oriented, yelling out that he isn't feeling well, appears distressed but asking to be left alone. Results & Data Laboratory Results Short CBC 01/28/19 Range/Units 03:20 WBC 11.61 H (4.8-10.8) K/uL Hgb 10.6 L (14.0-18.0) g/dL Hct 32.6 L (42-52) % Plt Count 285 (130-400) K/uL BMP 01/28/19 03:20 Sodium 138 Potassium 3.7 Chloride 107 Carbon Dioxide 24 BUN 21 H Creatinine 0.79 Glucose 112 H Calcium 7.9 L Cardiac Enzymes 01/28/19 Range/Units 03:20 Troponin I 0.033 (0-0.045) ng/ml Liver Function 01/28/19 Range/Units 03:20 Total Bilirubin 0.5 (0.2-1) mg/dl Direct Bilirubin 0.1 (0-0.2) mg/dl AST 16 (15-37) U/L ALT 20 (12-78) U/L Alkaline Phosphatase 75 (45-117) U/L Albumin 2.5 L (3.4-5.0) gm/dl Urine 01/28/19 Range/Units 04:38 Urine Color Yellow Urine Appearance Turbid H (Clear) Urine pH 5.0 (4.5-7.5) Ur Specific [place] 1.020 (1.000-1.030) Urine Protein Trace H (Negative) Urine Glucose (UA) Negative (Negative) Medications Administered Current Inpatient Medications Acetaminophen (Tylenol) 500 mg PO Q4 PRN PRN Reason: Fever Or Pain Stop: 02/27/19 07:42 Aspirin (Ecotrin Ectab) [facility] Stop: 02/27/19 08:59 Last Admin: 01/28/19 09:04 Dose: 81 mg Documented by: Atorvastatin Calcium (Lipitor) 40 mg PO QPM [facility] Stop: 02/27/19 20:59 Brimonidine Tartrate (Alphagan-P 0.15%) 1 drops OP TID [facility] Stop: 02/27/19 08:59 Last Admin: 01/28/19 09:04 Dose: 1 drops Documented by: Carvedilol (Coreg) 6.25 mg PO BIDM [facility] Stop: 02/27/19 07:59 Last Admin: 01/28/19 09:04 Dose: 6.25 mg Documented by: Clopidogrel Bisulfate (Plavix) 75 mg PO QAM [facility] Stop: 02/27/19 08:59 Last Admin: 01/28/19 09:04 Dose: 75 mg Documented by: Dorzolamide/Timolol (Cosopt) 1 drops OPL BID [facility] Stop: 02/27/19 08:59 Last Admin: 01/28/19 09:05 Dose: 1 drops Documented by: Escitalopram Oxalate (Lexapro) 5 [facility] Stop: 02/27/19 08:59 Last Admin: 01/28/19 09:03 Dose: 5 mg Documented by: Finasteride (Proscar) 5 mg PO QAM [facility] Stop: 02/27/19 08:59 Last Admin: 01/28/19 09:04 Dose: 5 mg Documented by: Hydrocortisone (Hydrocortisone 1%) 1 appln EXT TID PRN PRN Reason: itching/dry skin Diltiazem HCl 125 mg/ Dextrose 125 mls @ 5 mls/hr IV .Q24H [facility]; Protocol Stop: 02/27/19 08:59 Last Admin: 01/28/19 09:23 Dose: 5 mg/hr, 5 mls/hr Documented by: Heparin Sodium/Dextrose (Heparin Sodium/Dextrose) 25,000 units in 500 mls @ 16 mls/hr IV .Q24H [facility]; Protocol Stop: 02/27/19 08:59 Last Admin: 01/28/19 09:25 Dose: 800 units/hr, 16 mls/hr Documented by: Ertapenem 1,000 mg/ Sodium (Chloride) 60 mls @ 100 mls/hr IV Q24H [facility] Stop: 02/04/19 09:59 Last Admin: 01/28/19 11:10 Dose: 100 mls/hr Documented by: Vancomycin HCl 1,000 mg/ (Sodium Chloride) 270 mls @ 125 mls/hr IV Q12H [facility] Stop: 02/04/19 15:59 Lisinopril (Zestril) 5 mg PO QAM [facility] Stop: 02/27/19 08:59 Last Admin: 01/28/19 09:04 Dose: 5 mg Documented by: Miscellaneous Information (Consult) 1 ea N/A UD PRN PRN Reason: Consult Stop: 02/27/19 09:32 Multivitamins/Minerals (Multivitamin W/ Minerals Tab) 1 tab PO BID [facility] Stop: 02/27/19 08:59 Last Admin: 01/28/19 09:23 Dose: 1 tab Documented by: Tamsulosin HCl (Flomax) 0.4 mg PO QPM [facility] Stop: 02/27/19 20:59 Vitamin D (Vitamin D3) 1,000 units PO QAM [facility] Stop: 02/27/19 08:59 Last Admin: 01/28/19 09:04 Dose: 1,000 units Documented by: (1) Right lower lobe pneumonia Pneumonia type: due to unspecified organism Qualified Code(s): J18.1 - Lobar pneumonia, unspecified organism (2) HTN (hypertension) Hypertension type: essential hypertension Qualified Code(s): I10 - Essential (primary) hypertension
--- NOTE | 2019-01-28 15:39 | Cardiology Consultation ---
Date of Consultation January 28, 2019 Assessment & Plan (1) Atrial flutter: Periods of atrial fibrillation also noted on telemetry. Currently rate controlled on intravenous Cardizem infusion. Recommend discontinuation of carvedilol in favor of metoprolol tartrate. Patient will begin 25 mg twice daily with his first dose now. Cardizem infusion will be weaned as tolerated. Ultimate plans for transition to metoprolol succinate emulation at time of discharge. Continue intravenous heparin infusion. Plavix will be discontinued at this time. Further assessment of fall risk prior to addition of long-term oral anticoagulation. He is high risk for recurrent CVA given recent history of LAY OUT FORMER CVA as well as underlying malignancy. (2) Status post cerebrovascular accident: (3) Chronic diastolic heart failure: Patient volume status currently maintained with 40 mg Lasix alternating with 20 mg. Will restart Lasix 20 mg daily and follow fluid balance, daily weight, GFR, and electrolytes. (4) CAD in [place] artery: Stable without exertional angina. (5) S/P CABG (coronary artery bypass graft): (6) Right lower lobe pneumonia: (7) Lung mass: History of Present Illness Reason for Consultation: Atrial flutter Requesting Physician: Dr. De Leon Attending Physician: Marilee Ocampo DO History of Present Illness 83-year-old patient admitted with atrial flutter and rapid ventricular response. Intermittent 2-1 conduction with ventricular rates up to 130 bpm noted. Patient reports palpitations. He is somewhat of a poor historian. Recent history significant for LAY OUT FORMER cerebrovascular accident 09/2018. Treated with dual antiplatelet therapy since that time. Cardiac history is significant for coronary artery bypass grafting 1996. He was followed by the undersigned in 2015 and 2016. No prior history of atrial fibrillation. Previous cardiomyopathy with ejection fraction less than 20%. Most recent echocardiogram performed in 2016 demonstrates preserved LV systolic function. Other history notable for chronic tobacco use and 6.6 cm lung mass. Patient has declined further evaluation of the lung mass. Currently lives independently. Notes right-sided hip discomfort, otherwise, offers no complaints at this time. Telemetry demonstrates atrial fibrillation flutter with rates ranging from 80- 130 bpm. Allergies Allergy/AdvReac Type Severity Reaction Status Date / Time cephalexin [From Keflex] Allergy Mild Hives Verified 01/28/19 04:12 Penicillins Allergy Mild HIVES Verified 01/28/19 04:12 ether AdvReac Unknown Verified 01/28/19 04:12 Home Medications Home Medications Medication Instructions Recorded Confirmed Type acetaminophen 500 mg PO Q4 PRN MDD 3g/24hr 11/12/18 01/28/19 History aspirin [Aspirin Low Dose] 81 mg PO QAM 11/12/18 01/28/19 History atorvastatin 40 mg PO QPM 11/12/18 01/28/19 History brimonidine 1 drp OPHTHALMIC (EYE) TID 11/12/18 01/28/19 History carvedilol 6.25 mg PO BIDM 11/12/18 01/28/19 History cholecalciferol (vitamin D3) 1,000 unit PO QAM 11/12/18 01/28/19 History [Vitamin D3] clopidogrel 75 mg PO QAM 11/12/18 01/28/19 History docusate sodium 100 mg PO BID 11/12/18 01/28/19 History dorzolamide-timolol (PF) [Cosopt 1 drp OPL BID 11/12/18 01/28/19 History (PF)] escitalopram oxalate 5 mg PO QAM 11/12/18 01/28/19 History finasteride 5 mg PO QAM 11/12/18 01/28/19 History glucosamine sulfate 1,000 mg PO BID 11/12/18 01/28/19 History lisinopril 5 mg PO QAM 11/12/18 01/28/19 History tamsulosin 0.4 mg PO QPM 11/12/18 01/28/19 History vit C,M-Md-jynyq-lutein-zeaxan 1 tab PO BID 11/12/18 01/28/19 History [PreserVision AREDS-2] diphenhydramine-zinc acetate 1 applic TOPICAL TID PRN 01/28/19 01/28/19 History [Benadryl Itch Stopping] furosemide 20 mg PO Q OTHER DAY 01/28/19 01/28/19 History furosemide 40 mg PO Q OTHER DAY 01/28/19 01/28/19 History hydrocortisone 1 applic TOPICAL TID PRN 01/28/19 01/28/19 History potassium chloride 10 meq PO DAILY 01/28/19 01/28/19 History Patient History Medical History Lung mass (Chronic) 6.6 cm right perihilar mass per CT Sep 2018. Patient declined bronchoscopy Arthritis (Chronic) BPH (benign prostatic hyperplasia) (Chronic) With urinary retention requiring Morales cath. Followed by Dr. Alvarado. CHF (congestive heart failure) (Chronic 07/07/14) Chronic systolic. Compensated. Echo showed EF 50-55% and moderate . Hyperlipidemia (Chronic) COPD (chronic obstructive pulmonary disease) (Chronic) CAD (coronary artery disease) (Chronic) POA believes pt may have had an NV, pt states he was just short of breath and led to CABG being done. GERD (gastroesophageal reflux disease) (Chronic) Glaucoma (Chronic) HTN (hypertension) (Chronic) Stroke (Chronic) Acute ischemic stroke right [place] Sep [place]; old cerebellar stroke noted at that time as well. Morales catheter in place (Chronic) Aortic stenosis, moderate (Chronic) History of sigmoidoscopy (Chronic) Macular degeneration (Chronic) Numbness and tingling in hands (Resolved 07/07/14) Surgical History History of cataract extraction (Chronic) Hx of four vessel coronary artery bypass [place] (Chronic) [place] [facility] [place] of detached retina repair Family History Father , 62 Heart disease Mother , 99 No problems noted. Brother No problems noted. Sister Diabetes Social History Preferred Language: Romansh Communication Ability: Effective Blueprinter Required: No Beliefs That Will Affect Care: None marital status: Single Current Living Situation: Personal Care Facility Current Living Situation Comment: does not use ambulatory assist device current occupational status: retired current occupation: Former [employer] years Feels Safe at Home: Yes Safety Concerns: Feels Safe At This Time Smoking Status: Current every day smoker Hx Alcohol Use: No Hx Substance Use: No Review of Systems Pertinent positives noted per HPI, comprehensive 10 system review otherwise negative. Physical Exam Vital Signs (Past 24 Hours): Last Vital Signs Temp 36.5 C 01/28/19 06:07 Pulse 130 H 01/28/19 06:07 Resp 16 01/28/19 06:07 BP 118/78 01/28/19 06:07 Pulse Ox 98 01/28/19 06:07 Physical Exam: General: NAD, AAO x3, hard of hearing, chronically ill. HEENT: Normocephalic. Atraumatic. Conjunctiva pink, no scleral icterus. Neck: No carotid bruits, the carotid upstrokes are brisk. No JVD. No HJR Heart: Irregular rhythm, tachycardic. Normal S-1 and S-2 No murmurs appreciated.. PMI is not displaced. No RV heave. Lungs: Scattered rhonchi with mild expiratory wheeze. Abdomen: Normal bowel sounds. Soft. Nontender. No masses or organomegaly. No abdominal bruits. Extremities: No clubbing or cyanosis. 1+ bilateral pedal and ankle edema. Pulses: radial=2/4, posterior tibial=2/4. Neuro: Cranial nerves grossly intact. No focal motor deficit. (1) Atrial flutter Atrial flutter type: atypical Qualified Code(s): I48.4 - Atypical atrial flutter (2) Right lower lobe pneumonia Pneumonia type: due to unspecified organism Qualified Code(s): J18.1 - Lobar pneumonia, unspecified organism
[2019-01-28] MEDS: VANCOMYCIN HCL 1,000 MG in SODIUM CHLORIDE 0.9% 250 ML IV SCH (15:55)
[2019-01-28 15:58] LABS: Partial Thromboplastin Ratio 1.2; Partial Thromboplastin Time 31.9 Seconds (21.0-31.0)
[2019-01-28] MEDS ORDERED: METOPROLOL TARTRATE 25 MG TAB PO ONE (16:00)
[2019-01-28] MEDS ORDERED: HEPARIN IV BOLUS 4,500 UNITS in SYRINGE 0 ML IV ONE ×2 (16:34→23:15)
[2019-01-28] MEDS: METOPROLOL TARTRATE 25 MG TAB PO SCH (20:49)
[2019-01-28] MEDS: ATORVASTATIN 40 MG TAB PO SCH (20:49)
[2019-01-28] MEDS: TAMSULOSIN HCL 0.4 MG CAP PO SCH (20:51)
[2019-01-28 22:44] LABS: Partial Thromboplastin Ratio 1.5; Partial Thromboplastin Time 39.9 Seconds (21.0-31.0)
[2019-01-29] MEDS: dilTIAZem HCl 125 MG in DEXTROSE 5% 100 ML IV SCH (01:08)
[2019-01-29] MEDS: VANCOMYCIN HCL 1,000 MG in SODIUM CHLORIDE 0.9% 250 ML IV SCH ×2 (05:12→16:08)
[2019-01-29 06:57] LABS: Hemoglobin 9.9 g/dL (14.0-18.0); Mean Corpuscular Hgb Conc 31.9 g/dL (32-36); Mean Corpuscular Volume 86.8 fL (80-100); Mean Platelet Volume 10.8 fL (7.4-10.4); Platelet Count 281 K/uL (130-400); RDW Coefficient of Variation 14.4 % (11.5-14.5); RDW Standard Deviation 45.4 fL (36.4-46.3); Red Blood Count 3.57 M/uL (4.7-6.1); White Blood Count 14.32 K/uL (4.8-10.8)
[2019-01-29 07:13] LABS: Partial Thromboplastin Ratio 1.6; Partial Thromboplastin Time 43.9 Seconds (21.0-31.0)
[2019-01-29 07:22] LABS: BUN Creatinine Ratio 32.7 (10-20); Calcium 8.3 mg/dl (8.5-10.1); Creatinine Clr Calc Pharmacy 58.7 ml/min; Est GFR (African American) 92.9; Est GFR (Non-African American) 80.2; Potassium 3.6 mmol/L (3.5-5.1)
[2019-01-29] MEDS ORDERED: HEPARIN IV BOLUS 3,000 UNITS in SYRINGE 0 ML IV ONE (08:00)
[2019-01-29] MEDS: ESCITALOPRAM OXALATE 10 MG TAB PO SCH (08:37)
[2019-01-29] MEDS: FUROSEMIDE 20 MG TAB PO SCH (08:37)
[2019-01-29] MEDS: ASPIRIN 81 MG ECTAB PO SCH (08:37)
[2019-01-29] MEDS: CHOLECALCIFEROL 1,000 UNITS TAB PO SCH (08:38)
[2019-01-29] MEDS: FINASTERIDE 5 MG TAB PO SCH (08:38)
[2019-01-29] MEDS: CEROVITE ADV FORMULA TAB PO SCH ×2 (08:38→20:28)
[2019-01-29] MEDS: LISINOPRIL 5 MG TAB PO SCH (08:38)
[2019-01-29] MEDS: BRIMONIDINE TARTRATE-P 0.15% 5 ML BTL OP SCH ×3 (08:39→20:25)
[2019-01-29] MEDS: METOPROLOL TARTRATE 25 MG TAB PO SCH ×3 (08:39→20:36)
[2019-01-29] MEDS: DORZOLAMIDE/TIMOLOL 22.3/6.8MG/ML 10 ML BTL OPL SCH ×2 (08:39→20:35)
[2019-01-29] MEDS: HEPARIN STANDARD DEXTROSE 25,000 UNITS/500 ML IV SCH (08:42)
[2019-01-29] MEDS: ERTAPENEM SODIUM 1,000 MG in SODIUM CHLORIDE 0.9% 50 ML IV SCH (11:25)
--- NOTE | 2019-01-29 11:35 | Hospitalist Progress Note ---
Date of Service January 29, 2019 Assessment & Plan (1) Atrial flutter with rapid ventricular response: Persistent atrial flutter, on diltiazem drip. On metoprolol Cont IV heparin (2) CAD (coronary artery disease): h/o CABG, currently agitated but denies any chest pain. Cont medical management including ASA, Plavix, Metoprolol, lisinopril and statin. (3) Chronic systolic heart failure: improved EF with medications. Cont medical management as above. Decreased home diuretics for now. (4) Aortic stenosis, moderate: History of moderate with bicuspid aortic valve. Hemodynamically stable. (5) HTN (hypertension): Controlled, Low Today, will put parameters on BP meds (6) Right lower lobe pneumonia: Recently treated for flu and previous diagnoses of a R perihilar mass. Declined diagnostic bronchoscopy. Now with worsened RLL density. His rate is controlled, but he is still on drips. Cont Vanc and Ertapenem pending culture results and clinical improvement. +Leukocytosis-WBCs are up to 14 +UTI-continue Abx (7) Lung mass: As above, h/o smoking. Declined bronchoscopy (8) COPD (chronic obstructive pulmonary disease): chronic, no active wheezing, oxygenating well on room air. 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 Off clopidogrel. Now with atrial flutter. On IV heparin; long-term anticoagulation strategy to be determined. Continue aspirin. (10) BPH (benign prostatic hyperplasia): BPH with urinary retention followed by [facility]. TURP considered, but postponed in light of recent stroke. Continue Morales catheter. (11) Leg ulcer: Chronic ulcer right leg-pt would not let me evaluate this tonight. Consult Wound Care Nursing. (12) Diarrhea: appears to have resolved. C-diff remains uncollected. (13) DVT prophylaxis: Heparin drip DNR Dispo: pending Cardiology recommendations and workup/clincal improvement related to lung mass Probable return to [facility] if functional status allows. Family Medicine follow-up with Dr. Salcido. Subjective ROS-offers no reliable history Physical Exam Gen-AAO x 2, NAD, Afebrile Head-NCAT, EOMI, PERRLA, Anicteric Sclera, No Posterior Pharyngeal Erythema Neck-Supple, No JVD, No Thyromegaly, No Masses, No LAD, No Bruits Lungs-Clear to Auscultation Bilaterally, No Rales, No Rhonchi, No Wheezing, No Crepitus Chest-No S4, +S1, +S2, No S3, No Murmurs, No Rubs, No Gallops, No Ectopy Abdomen-Soft, Bowel Sounds Present, Non Tender, Non Distended, No Hepatomegaly, No Splenomegaly, No Palpable Masses, No Rebound, No Rigidity, No Guarding Musculoskeletal-Full Range of Motion Bilaterally, No CVAT Extremities-No Cyanosis, No Clubbing, No Edema Nuero-Cranial Nerves II-XII grossly intact, Motor WNL, DTRs WNL, Strength WNL, Non Focal Psych-Anxious Physical Exam Vital Signs (Past 24 Hours): Last Vital Signs Temp 36.3 C L 01/29/19 11:31 Pulse 62 01/29/19 11:31 Resp 20 01/29/19 11:31 BP 96/61 L 01/29/19 11:31 Pulse Ox 94 01/29/19 11:31 (1) HTN (hypertension) Hypertension type: essential hypertension Qualified Code(s): I10 - Essential (primary) hypertension (2) Right lower lobe pneumonia Pneumonia type: due to unspecified organism Qualified Code(s): J18.1 - Lobar pneumonia, unspecified organism
--- NOTE | 2019-01-29 13:11 | Cardiology Progress Note ---
Date of Service January 29, 2019 Assessment & Plan (1) Atrial flutter: Periods of atrial fibrillation also noted on telemetry. Intermittent rapid ventricular response noted. Recommend titration of metoprolol titrated to 25 mg 3 times daily. Will wean intravenous Cardizem as tolerated. Patient asymptomatic. This was discussed with nursing at bedside. Continue intravenous heparin. We will add Coumadin 5 mg daily for goal INR of 2.0-3.0. Patient will be returning to a monitored setting at time of discharge. (2) Status post cerebrovascular accident: (3) Chronic diastolic heart failure: Outpatient diuretic dose is 40 mg Lasix alternating with 20 mg. Currently receiving Lasix 20 mg daily. Follow fluid balance, daily weight, GFR, and electrolytes. (4) CAD in [place] artery: Stable without exertional angina. (5) S/P CABG (coronary artery bypass graft): (6) Right lower lobe pneumonia: (7) Lung mass: (8) Anemia: Monitor H&H. Subjective Patient seen and examined at the bedside. Poor historian. He is a resident of a care home. Denies chest pain or shortness of breath. Heart rate ranging from 65 bpm up to 130 bpm. Diltiazem infusing currently at 15 mg/h. Tolerating beta-vickie therapy with borderline hypotension. Review of Systems All systems reviewed & are unremarkable except as noted in HPI & below Physical Exam Vital Signs (Past 24 Hours): Last Vital Signs Temp 36.3 C L 01/29/19 11:31 Pulse 62 01/29/19 11:31 Resp 20 01/29/19 11:31 BP 96/61 L 01/29/19 11:31 Pulse Ox 94 01/29/19 11:31 Physical Exam: General: NAD, oriented to person, hard of hearing, chronically ill. Poor historian. HEENT: Dry mucous membranes, normocephalic. Atraumatic. Conjunctiva pink, no scleral icterus. Neck: No carotid bruits, the carotid upstrokes are brisk. No JVD. No HJR Heart: Irregular rhythm, tachycardic. Normal S-1 and S-2 No murmurs appreciated.. PMI is not displaced. No RV heave. Lungs: Scattered rhonchi with mild expiratory wheeze. Abdomen: Normal bowel sounds. Soft. Nontender. No masses or organomegaly. No abdominal bruits. Extremities: No clubbing or cyanosis. Trace bilateral pedal edema. Pulses: radial=2/4, posterior tibial=2/4. Neuro: Cranial nerves grossly intact. No focal motor deficit. (1) Atrial flutter Atrial flutter type: atypical Qualified Code(s): I48.4 - Atypical atrial flutter (2) Right lower lobe pneumonia Pneumonia type: due to unspecified organism Qualified Code(s): J18.1 - Lobar pneumonia, unspecified organism
[2019-01-29] MEDS: WARFARIN SOD 5 MG TAB PO SCH (16:08)
[2019-01-29] MEDS: TAMSULOSIN HCL 0.4 MG CAP PO SCH (20:28)
[2019-01-29] MEDS: ATORVASTATIN 40 MG TAB PO SCH (20:28)
[2019-01-30] MEDS ORDERED: VANCOMYCIN TROUGH ONE (03:30)
[2019-01-30 03:41] LABS: Hematocrit (blood only) 28.9 % (42-52); Hemoglobin 9.3 g/dL (14.0-18.0); Mean Corpuscular Hgb Conc 32.2 g/dL (32-36); Mean Corpuscular Volume 86.8 fL (80-100); Mean Platelet Volume 10.4 fL (7.4-10.4); Nucleated RBC # (auto) 0.03 K/uL (0-0); Nucleated RBC % (auto) 0.2 %; Platelet Count 288 K/uL (130-400); RDW Coefficient of Variation 14.4 % (11.5-14.5); RDW Standard Deviation 45.4 fL (36.4-46.3); Red Blood Count 3.33 M/uL (4.7-6.1); White Blood Count 13.21 K/uL (4.8-10.8)
[2019-01-30 04:03] LABS: BUN Creatinine Ratio 38.4 (10-20); Calcium 8.3 mg/dl (8.5-10.1); Creatinine Clr Calc Pharmacy 42.8 ml/min; Est GFR (African American) 65.7; Est GFR (Non-African American) 56.7; Potassium 3.8 mmol/L (3.5-5.1)
[2019-01-30 04:13] LABS: INR 1.3 (0.9-1.1); Partial Thromboplastin Ratio 1.7; Partial Thromboplastin Time 44.9 Seconds (21.0-31.0); Prothrombin Time 12.7 Seconds (9.0-12.0)
[2019-01-30] MEDS: VANCOMYCIN HCL 1,000 MG in SODIUM CHLORIDE 0.9% 250 ML IV SCH ×2 (04:20→16:35)
[2019-01-30] MEDS: HEPARIN STANDARD DEXTROSE 25,000 UNITS/500 ML IV SCH (05:59)
[2019-01-30] MEDS: METOPROLOL TARTRATE 25 MG TAB PO SCH ×3 (06:10→16:36)
[2019-01-30] MEDS ORDERED: HEPARIN IV BOLUS 3,000 UNITS in SYRINGE 0 ML IV ONE (06:15)
[2019-01-30] MEDS: CHOLECALCIFEROL 1,000 UNITS TAB PO SCH (07:59)
[2019-01-30] MEDS: ESCITALOPRAM OXALATE 10 MG TAB PO SCH (07:59)
[2019-01-30] MEDS: FINASTERIDE 5 MG TAB PO SCH (08:00)
[2019-01-30] MEDS: CEROVITE ADV FORMULA TAB PO SCH ×2 (08:00→20:10)
[2019-01-30] MEDS: LISINOPRIL 5 MG TAB PO SCH (08:00)
[2019-01-30] MEDS: ASPIRIN 81 MG ECTAB PO SCH (08:00)
[2019-01-30] MEDS: FUROSEMIDE 20 MG TAB PO SCH (08:01)
[2019-01-30] MEDS: BRIMONIDINE TARTRATE-P 0.15% 5 ML BTL OP SCH ×3 (08:02→20:10)
[2019-01-30] MEDS: DORZOLAMIDE/TIMOLOL 22.3/6.8MG/ML 10 ML BTL OPL SCH ×2 (08:03→20:15)
[2019-01-30] MEDS: ERTAPENEM SODIUM 1,000 MG in SODIUM CHLORIDE 0.9% 50 ML IV SCH (10:03)
--- NOTE | 2019-01-30 10:06 | Pharmacy Report ---
Pharmacy Abx Dose Short Note - Date of Service January 30, 2019 - Assessment & Plan Assessment 83 year old M receiving vanco/invanz for treatment of pulmonary source vs urinary source Day # 4/? of antimicrobial therapy. There was a slight decrease in renal fxn overnight. Will order a trough for tomorrow AM. MRSA nares are negative. Pt has a h/o pansensitive E. faecalis. Will wait to de-escalate until c/s result for enteroccocus in the UC. Choice of antibx complicated by allergies. Plan Vancomycin * Trough level of 16.8 mcg/mL is therapeutic * Continue dose of 1000 mg IV every 12 hours * Goal trough level for pulmonary/urinary source : 15 to 20 mcg/mL * Trough or random level ordered for: 01/31/19 @2514 Pharmacy will continue to follow and will adjust dose/frequency as necessary. Thank you.
[2019-01-30 12:16] LABS: Partial Thromboplastin Ratio 2.2
[2019-01-30 12:17] LABS: Partial Thromboplastin Time 60.9 Seconds (21.0-31.0)
--- NOTE | 2019-01-30 12:51 | Hospitalist Progress Note ---
Date of Service January 30, 2019 Assessment & Plan (1) Atrial flutter with rapid ventricular response: Persistent atrial flutter, on diltiazem drip. On metoprolol On IV heparin Warfarin (2) CAD (coronary artery disease): h/o CABG, currently agitated but denies any chest pain. Cont medical management including ASA, Plavix, Metoprolol, lisinopril and statin. (3) Chronic systolic heart failure: improved EF with medications. Cont medical management as above. Decreased home diuretics for now. (4) Aortic stenosis, moderate: History of moderate with bicuspid aortic valve. Hemodynamically stable. (5) HTN (hypertension): Controlled (6) Right lower lobe pneumonia: Recently treated for flu and previous diagnoses of a R perihilar mass. Declined diagnostic bronchoscopy. Now with worsened RLL density. His rate is controlled, but he is still on drips. Cont Vanc and Ertapenem pending culture results and clinical improvement. +Leukocytosis-WBCs are down from 14 yesterday down to to 13 +UTI-continue Abx (7) Lung mass: As above, h/o smoking. Declined bronchoscopy (8) COPD (chronic obstructive pulmonary disease): chronic, no active wheezing, oxygenating well on room air. 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 Off clopidogrel. Now with atrial flutter. On IV heparin; long-term anticoagulation strategy to be determined. Continue aspirin. (10) BPH (benign prostatic hyperplasia): BPH with urinary retention followed by [facility]. TURP considered, but postponed in light of recent stroke. Continue Morales catheter. (11) Leg ulcer: Chronic ulcer right leg-pt would not let me evaluate this tonight. Wound Care Nursing. (12) Diarrhea: appears to have resolved. C-diff remains uncollected. (13) DANITA (acute kidney injury): Monitor creatinine currently 1.18 today up from 0.8 (14) DVT prophylaxis: Heparin drip DNR Dispo: pending Cardiology recommendations and workup/clincal improvement related to lung mass Probable return to [facility] if functional status allows. Family Medicine follow-up with Dr. Salcido. Warfarin. Subjective ROS-offers no reliable history Physical Exam Gen-AAO x 2, NAD, Afebrile Head-NCAT, EOMI, PERRLA, Anicteric Sclera, No Posterior Pharyngeal Erythema Neck-Supple, No JVD, No Thyromegaly, No Masses, No LAD, No Bruits Lungs-Clear to Auscultation Bilaterally, No Rales, No Rhonchi, No Wheezing, No Crepitus Chest-No S4, +S1, +S2, No S3, No Murmurs, No Rubs, No Gallops, No Ectopy Abdomen-Soft, Bowel Sounds Present, Non Tender, Non Distended, No Hepatomegaly, No Splenomegaly, No Palpable Masses, No Rebound, No Rigidity, No Guarding Musculoskeletal-Full Range of Motion Bilaterally, No CVAT Extremities-No Cyanosis, No Clubbing, No Edema Nuero-Cranial Nerves II-XII grossly intact, Motor WNL, DTRs WNL, Strength WNL, Non Focal Psych-Anxious Physical Exam Vital Signs (Past 24 Hours): Last Vital Signs Temp 36.5 C 01/30/19 07:00 Pulse 73 01/30/19 12:18 Resp 16 01/30/19 12:18 BP 108/68 01/30/19 12:18 Pulse Ox 96 01/30/19 12:18 Results & Data Laboratory Results Current Diagnoses Anemia, unspecified (01/28/19) Hyperlipidemia, unspecified (01/28/19) Essential (primary) hypertension (01/28/19) Atherosclerotic heart disease of [place] coronary artery without angina pectoris (01/28/19) Nonrheumatic aortic (valve) stenosis (01/28/19) Atypical atrial flutter (01/28/19) Unspecified atrial flutter (01/28/19) Chronic systolic (congestive) heart failure (01/28/19) Chronic diastolic (congestive) heart failure (01/28/19) Cerebral infarction, unspecified (01/28/19) Lobar pneumonia, unspecified organism (01/28/19) Chronic obstructive pulmonary disease, unspecified (01/28/19) Non-pressure chronic ulcer of unspecified part of unspecified lower leg with unspecified severity (01/28/19) Benign prostatic hyperplasia without lower urinary tract symptoms (01/28/19) Diarrhea, unspecified (01/28/19) Other nonspecific abnormal finding of lung field (01/28/19) Encounter for administrative examinations, unspecified (01/28/19) Do not resuscitate (01/28/19) Personal history of transient ischemic attack (TIA), and cerebral infarction without residual deficits (01/28/19) Presence of aortocoronary bypass graft (01/28/19) Allergies cephalexin [From Keflex] Allergy (Mild, Verified 01/28/19 04:12) Hives Penicillins Allergy (Mild, Verified 01/28/19 04:12) HIVES ether Adverse Reaction (Verified 01/28/19 04:12) Unknown Height/Weight/Isolation Height 5 ft 6 in Weight 75.8 kg Chemistry 01/29/19 01/30/19 06:44 03:30 Sodium 138 139 Potassium 3.6 3.8 Chloride 107 109 H Carbon Dioxide 24 23 Anion Gap 7.0 7.0 BUN 28 H 45 H D Creatinine 0.86 1.18 D Glucose 137 H 141 H Microbiology 01/28/19 04:38 Urine,Clean Catch Urine Culture - Final Enterococcus faecalis 01/28/19 04:00 Blood Blood Culture - Preliminary No growth to date. 01/28/19 03:48 Blood Blood Culture - Preliminary No growth to date. (1) HTN (hypertension) Hypertension type: essential hypertension Qualified Code(s): I10 - Essential (primary) hypertension (2) Right lower lobe pneumonia Pneumonia type: due to unspecified organism Qualified Code(s): J18.1 - Lobar pneumonia, unspecified organism
--- NOTE | 2019-01-30 15:06 | Cardiology Progress Note ---
Date of Service January 30, 2019 Assessment & Plan (1) Atrial flutter: Continues to have only marginal rate control. Will increase metoprolol to 25 every 6 consider adding low-dose digoxin if not further control. Avoid diltiazem given past history of cardiomyopathy Transition anticoagulation from IV heparin to Coumadin Treat underlying pulmonary infection with good oxygenation currently Suspect patient will require extended care facility (2) Status post cerebrovascular accident: (3) Chronic diastolic heart failure: Outpatient diuretic dose is 40 mg Lasix alternating with 20 mg. Currently receiving Lasix 20 mg daily. Follow fluid balance, daily weight, GFR, and electrolytes. (4) CAD in [place] artery: Stable without exertional angina. (5) S/P CABG (coronary artery bypass graft): (6) Right lower lobe pneumonia: (7) Lung mass: Subjective Patient seen and examined at the bedside. Poor historian. Off diltiazem but with elevated ventricular response rate, blood pressure slightly improved Physical Exam Vital Signs (Past 24 Hours): Last Vital Signs Temp 36.5 C 01/30/19 07:00 Pulse 73 01/30/19 12:18 Resp 16 01/30/19 12:18 BP 108/68 01/30/19 12:18 Pulse Ox 96 01/30/19 12:18 Eyes: PERRL, conjunctivae normal, anicteric sclerae ENMT: Ears: + hearing impairment Mouth: + dentition abnormality (poor) Neck: trachea midline, no thyromegaly Respiratory: normal respiratory effort, lungs clear to auscultation no respiratory distress Auscultation: + rhonchi (right base) Cardiovascular: Rate/Rhythm: + tachycardic; + abnormal rhythm (irregular) Heart Sounds: + murmur (II/ sys murmur(s) heard at base and apex); no gallop and no cardiac rub Vessels: normal peripheral pulses (pedal pulses diminished); no JVD Extremities: normal capillary refill (bilat toes about 2 sec); no calf tenderness and no edema Gastrointestinal (Abdomen): normal bowel sounds, soft, nontender, no hepatosplenomegaly Musculoskeletal: Head/Neck/Chest: neck supple Extremities: + abnormal strength (mild weakness of lower extremities), no cyanosis and no clubbing Results & Data Laboratory Results Laboratory Results - last 24 hr 01/30/19 01/30/19 01/30/19 03:30 03:30 03:30 WBC 13.21 H RBC 3.33 L Hgb 9.3 L Hct 28.9 L MCV 86.8 MCH 27.9 MCHC 32.2 RDW Std Deviation 45.4 RDW Coeff of Louise 14.4 Plt Count 288 MPV 10.4 Absolute Nucleated RBC 0.03 H Nucleated RBC % (auto) 0.2 PT 12.7 H INR 1.3 H APTT 44.9 H PTT Ratio 1.7 Sodium 139 Potassium 3.8 Chloride 109 H Carbon Dioxide 23 Anion Gap 7.0 BUN 45 H D Creatinine 1.18 D Est Cr Clr Drug Dosing 42.8 Est GFR ( Amer) 65.7 Est GFR (Non-Af Amer) 56.7 BUN/Creatinine Ratio 38.4 H Glucose 141 H Calcium 8.3 L Vancomycin Trough 01/30/19 01/30/19 03:30 11:50 WBC RBC Hgb Hct MCV MCH MCHC RDW Std Deviation RDW Coeff of Louise Plt Count MPV Absolute Nucleated RBC Nucleated RBC % (auto) PT INR APTT 60.9 H* PTT Ratio 2.2 Sodium Potassium Chloride Carbon Dioxide Anion Gap BUN Creatinine Est Cr Clr Drug Dosing Est GFR ( Amer) Est GFR (Non-Af Amer) BUN/Creatinine Ratio Glucose Calcium Vancomycin Trough 16.8 (1) Atrial flutter Atrial flutter type: atypical Qualified Code(s): I48.4 - Atypical atrial flutter (2) Right lower lobe pneumonia Pneumonia type: due to unspecified organism Qualified Code(s): J18.1 - Lobar pneumonia, unspecified organism
[2019-01-30] MEDS: WARFARIN SOD 5 MG TAB PO SCH (16:34)
[2019-01-30] MEDS: TAMSULOSIN HCL 0.4 MG CAP PO SCH (20:10)
[2019-01-30] MEDS: ATORVASTATIN 40 MG TAB PO SCH (20:10)
[2019-01-31] MEDS: METOPROLOL TARTRATE 25 MG TAB PO SCH ×4 (00:10→16:30)
[2019-01-31 03:30] LABS: Hematocrit (blood only) 28.2 % (42-52); Hemoglobin 9.2 g/dL (14.0-18.0); Mean Corpuscular Hgb Conc 32.6 g/dL (32-36); Mean Corpuscular Volume 86.5 fL (80-100); Mean Platelet Volume 10.8 fL (7.4-10.4); Platelet Count 304 K/uL (130-400); RDW Coefficient of Variation 14.7 % (11.5-14.5); RDW Standard Deviation 45.7 fL (36.4-46.3); Red Blood Count 3.26 M/uL (4.7-6.1); White Blood Count 12.61 K/uL (4.8-10.8)
[2019-01-31] MEDS ORDERED: VANCOMYCIN TROUGH ONE (03:30)
[2019-01-31 03:47] LABS: BUN Creatinine Ratio 42.2 (10-20); Creatinine Clr Calc Pharmacy 40.1 ml/min; Est GFR (African American) 60.7; Est GFR (Non-African American) 52.4; Potassium 3.8 mmol/L (3.5-5.1)
[2019-01-31 03:49] LABS: INR 1.3 (0.9-1.1); Partial Thromboplastin Ratio 2.2; Prothrombin Time 13.3 Seconds (9.0-12.0)
[2019-01-31 03:50] LABS: Partial Thromboplastin Time 60.4 Seconds (21.0-31.0)
[2019-01-31] MEDS: HEPARIN STANDARD DEXTROSE 25,000 UNITS/500 ML IV SCH (04:36)
--- NOTE | 2019-01-31 04:48 | Pharmacy Report ---
Pharmacy Abx Dose Short Note - Date of Service January 31, 2019 - Assessment & Plan Assessment 83 year old M receiving vancomycin and Invanz for treatment of pneumonia Day # 4 of antimicrobial therapy. Plan Vancomycin * Trough level of 20.8 mcg/mL is supratherapeutic * Change to 1000 mg IV every 14 hours * Goal trough level for pulmonary indication : 15 to 20 mcg/mL * Trough ordered for: 02/01/19 Pharmacy will continue to follow and will adjust dose/frequency as necessary. Thank you.
[2019-01-31] MEDS: VANCOMYCIN HCL 1,000 MG in SODIUM CHLORIDE 0.9% 250 ML IV SCH ×2 (05:33→20:09)
[2019-01-31] MEDS: CHOLECALCIFEROL 1,000 UNITS TAB PO SCH (07:50)
[2019-01-31] MEDS: BRIMONIDINE TARTRATE-P 0.15% 5 ML BTL OP SCH ×3 (07:50→20:11)
[2019-01-31] MEDS: FUROSEMIDE 20 MG TAB PO SCH (07:51)
[2019-01-31] MEDS: FINASTERIDE 5 MG TAB PO SCH (07:51)
[2019-01-31] MEDS: CEROVITE ADV FORMULA TAB PO SCH ×2 (07:51→20:11)
[2019-01-31] MEDS: LISINOPRIL 5 MG TAB PO SCH (07:51)
[2019-01-31] MEDS: ESCITALOPRAM OXALATE 10 MG TAB PO SCH (07:51)
[2019-01-31] MEDS: DORZOLAMIDE/TIMOLOL 22.3/6.8MG/ML 10 ML BTL OPL SCH ×2 (07:52→20:18)
[2019-01-31] MEDS: ASPIRIN 81 MG ECTAB PO SCH (09:23)
[2019-01-31] MEDS: ERTAPENEM SODIUM 1,000 MG in SODIUM CHLORIDE 0.9% 50 ML IV SCH (10:15)
--- NOTE | 2019-01-31 11:55 | Hospitalist Progress Note ---
Date of Service January 31, 2019 Assessment & Plan (1) Atrial flutter with rapid ventricular response: Persistent atrial flutter, on diltiazem drip. On metoprolol Stop IV heparin Continue Warfarin (2) CAD (coronary artery disease): h/o CABG, currently agitated but denies any chest pain. Cont medical management including ASA, Plavix, Metoprolol, lisinopril and statin. Also is therapeutic on warfarin (3) Chronic systolic heart failure: improved EF with medications. Cont medical management as above. Decreased home diuretics for now. (4) Aortic stenosis, moderate: History of moderate with bicuspid aortic valve. Hemodynamically stable. (5) HTN (hypertension): Controlled (6) Right lower lobe pneumonia: Recently treated for flu and previous diagnoses of a R perihilar mass. Declined diagnostic bronchoscopy. Now with worsened RLL density. His rate is controlled, but he is still on drips. Cont Vanc and Ertapenem pending culture results and clinical improvement. +Leukocytosis-WBCs are down from 14 to 13 to 12 +UTI-continue Abx (7) Lung mass: As above, h/o smoking. Declined bronchoscopy (8) COPD (chronic obstructive pulmonary disease): chronic, no active wheezing, oxygenating well on room air. 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 Off clopidogrel. Now with atrial flutter. On IV heparin; long-term anticoagulation strategy to be determined. Continue aspirin. (10) BPH (benign prostatic hyperplasia): BPH with urinary retention followed by [facility]. TURP considered, but postponed in light of recent stroke. Continue Morales catheter. (11) Leg ulcer: Chronic ulcer right leg-pt would not let me evaluate this tonight. Wound Care Nursing. (12) Diarrhea: appears to have resolved. C-diff remains uncollected. (13) DANITA (acute kidney injury): Monitor creatinine currently 1.18 today up from 0.8 (14) DVT prophylaxis: Heparin drip DNR Dispo:Cardiology recommendations and workup/clincal improvement related to lung mass Probable return to [facility] if functional status allows. Family Medicine follow-up with Dr. Salcido. Warfarin. Family says he is garbling his speech and he does not seem right per them they are requesting an MRI, I will order an MRI, however, he is on aspirin, Plavix, w arfarin, and a statin. He is also a DNR, I do not see where an MRI changes the management, but will try to appease them. Subjective ROS-feeling better today, no nausea, vomiting, fevers, chills, shortness of breath Physical Exam Gen-AAO x 2, NAD, Afebrile Head-NCAT, EOMI, PERRLA, Anicteric Sclera, No Posterior Pharyngeal Erythema Neck-Supple, No JVD, No Thyromegaly, No Masses, No LAD, No Bruits Lungs-Clear to Auscultation Bilaterally, No Rales, No Rhonchi, No Wheezing, No Crepitus Chest-No S4, +S1, +S2, No S3, No Murmurs, No Rubs, No Gallops, No Ectopy Abdomen-Soft, Bowel Sounds Present, Non Tender, Non Distended, No Hepatomegaly, No Splenomegaly, No Palpable Masses, No Rebound, No Rigidity, No Guarding Musculoskeletal-Full Range of Motion Bilaterally, No CVAT Extremities-No Cyanosis, No Clubbing, No Edema Nuero-Cranial Nerves II-XII grossly intact, Motor WNL, DTRs WNL, Strength WNL, Non Focal Psych-Anxious Physical Exam Vital Signs (Past 24 Hours): Last Vital Signs Temp 36.3 C L 01/31/19 07:08 Pulse 70 01/31/19 07:08 Resp 16 01/31/19 07:08 BP 111/53 L 01/31/19 07:08 Pulse Ox 96 01/31/19 07:08 Results & Data Laboratory Results Current Diagnoses Anemia, unspecified (01/28/19) Hyperlipidemia, unspecified (01/28/19) Essential (primary) hypertension (01/28/19) Atherosclerotic heart disease of [place] coronary artery without angina pectoris (01/28/19) Nonrheumatic aortic (valve) stenosis (01/28/19) Atypical atrial flutter (01/28/19) Unspecified atrial flutter (01/28/19) Chronic systolic (congestive) heart failure (01/28/19) Chronic diastolic (congestive) heart failure (01/28/19) Cerebral infarction, unspecified (01/28/19) Lobar pneumonia, unspecified organism (01/28/19) Chronic obstructive pulmonary disease, unspecified (01/28/19) Non-pressure chronic ulcer of unspecified part of unspecified lower leg with unspecified severity (01/28/19) Acute kidney failure, unspecified (01/28/19) Benign prostatic hyperplasia without lower urinary tract symptoms (01/28/19) Diarrhea, unspecified (01/28/19) Other nonspecific abnormal finding of lung field (01/28/19) Encounter for administrative examinations, unspecified (01/28/19) Do not resuscitate (01/28/19) Personal history of transient ischemic attack (TIA), and cerebral infarction without residual deficits (01/28/19) Presence of aortocoronary bypass graft (01/28/19) Allergies cephalexin [From Keflex] Allergy (Mild, Verified 01/28/19 04:12) Hives Penicillins Allergy (Mild, Verified 01/28/19 04:12) HIVES ether Adverse Reaction (Verified 01/28/19 04:12) Unknown Height/Weight/Isolation Height 5 ft 6 in Weight 76 kg Chemistry 01/30/19 01/31/19 03:30 03:19 Sodium 139 142 Potassium 3.8 3.8 Chloride 109 H 110 H Carbon Dioxide 23 25 Anion Gap 7.0 7.0 BUN 45 H D 53 H Creatinine 1.18 D 1.26 Glucose 141 H 129 H Microbiology 01/28/19 04:38 Urine,Clean Catch Urine Culture - Final Enterococcus faecalis 01/28/19 04:00 Blood Blood Culture - Preliminary No growth to date. 01/28/19 03:48 Blood Blood Culture - Preliminary No growth to date. (1) HTN (hypertension) Hypertension type: essential hypertension Qualified Code(s): I10 - Essential (primary) hypertension (2) Right lower lobe pneumonia Pneumonia type: due to unspecified organism Qualified Code(s): J18.1 - Lobar pneumonia, unspecified organism
--- NOTE | 2019-01-31 13:10 | Fluoroscopy Report ---
FL video swallow HISTORY: Possible pneumonia. r/o aspiration TECHNIQUE: Video fluoroscopic evaluation of swallowing was performed in the AP and lateral projection s by the speech pathology staff. The patient is fed nectar-thick and thin liquid barium, a barium coa lynnette wafer, and barium pudding. FLUOROSCOPY TIME: 3 minutes. A cine loop was submitted. COMPARISON STUDY: None. FINDINGS: Large anterior osteophytes at C4-C6 resulting in mass effect along the distal hypopharynx. There is incomplete epiglottic deflection with pooling of barium in the pyriform sinuses due to the m ass effect from the anterior osteophytes. This results in penetration without aspiration. IMPRESSION: 1. No aspiration identified. However, there is moderate residue at the pyriform sinuses likely due to the mass effect from the large anterior osteophytes at the distal hypopharynx. 2. Please see the speech pathologist report for detailed findings and recommendations. Electronically signed by: Glenn Mayen M.D. 01/31/2019 1:08 PM
--- NOTE | 2019-01-31 14:01 | Nephrology Consultation ---
Date of Consultation January 31, 2019 Assessment & Plan (1) DANITA (acute kidney injury): Patient with acute kidney injury likely due to prerenal azotemia. He has a markedly high BUN in comparison to the creatinine. His UA was likely contaminated in setting of Morales catheter. He is receiving Lasix 20 mg daily. His volume status appears to be on the lower side. His blood pressure is on the lower side today as well. 1. Recommend stopping lisinopril. 2. Monitor input output. Will consider stopping Lasix as well if creatinine continues to up trend. 3. Monitor vancomycin levels closely. Avoid levels above 25 as this can be nephrotoxic. History of Present Illness Reason for Consultation: Acute kidney injury Requesting Physician: Marty Calderon DO Attending Physician: Marty Calderon DO History of Present Illness This is a 83-year-old male with history of hypertension, coronary artery disease status post CABG, chronic diastolic CHF, CVA, lung mass for which he did not want aggressive workup or chemotherapy and BPH was admitted on 01/28/2019 with shortness of breath. He was also found to be in a flutter and was treated with the rate control agents. His creatinine on admission was 0.8 but now is up to 1.26. He has a BUN of 53. We have been asked to evaluate him for etiology and management of his acute kidney injury. He is receiving vancomycin for pneumonia. He feels better this morning denies any shortness of breath or pain. He was seated up in the chair having lunch at the time of my visit. He does have a Morales catheter. Allergies Allergy/AdvReac Type Severity Reaction Status Date / Time cephalexin [From Keflex] Allergy Mild Hives Verified 01/28/19 04:12 Penicillins Allergy Mild HIVES Verified 01/28/19 04:12 ether AdvReac Unknown Verified 01/28/19 04:12 Home Medications Home Medications Medication Instructions Recorded Confirmed Type acetaminophen 500 mg PO Q4 PRN MDD 3g/24hr 11/12/18 01/28/19 History aspirin [Aspirin Low Dose] 81 mg PO QAM 11/12/18 01/28/19 History atorvastatin 40 mg PO QPM 11/12/18 01/28/19 History brimonidine 1 drp OPHTHALMIC (EYE) TID 11/12/18 01/28/19 History carvedilol 6.25 mg PO BIDM 11/12/18 01/28/19 History cholecalciferol (vitamin D3) 1,000 unit PO QAM 11/12/18 01/28/19 History [Vitamin D3] clopidogrel 75 mg PO QAM 11/12/18 01/28/19 History docusate sodium 100 mg PO BID 11/12/18 01/28/19 History dorzolamide-timolol (PF) [Cosopt 1 drp OPL BID 11/12/18 01/28/19 History (PF)] escitalopram oxalate 5 mg PO QAM 11/12/18 01/28/19 History finasteride 5 mg PO QAM 11/12/18 01/28/19 History glucosamine sulfate 1,000 mg PO BID 11/12/18 01/28/19 History lisinopril 5 mg PO QAM 11/12/18 01/28/19 History tamsulosin 0.4 mg PO QPM 11/12/18 01/28/19 History vit C,Q-Yr-wlapg-lutein-zeaxan 1 tab PO BID 11/12/18 01/28/19 History [PreserVision AREDS-2] diphenhydramine-zinc acetate 1 applic TOPICAL TID PRN 01/28/19 01/28/19 History [Benadryl Itch Stopping] furosemide 20 mg PO Q OTHER DAY 01/28/19 01/28/19 History furosemide 40 mg PO Q OTHER DAY 01/28/19 01/28/19 History hydrocortisone 1 applic TOPICAL TID PRN 01/28/19 01/28/19 History potassium chloride 10 meq PO DAILY 01/28/19 01/28/19 History Patient History Medical History Lung mass (Chronic) 6.6 cm right perihilar mass per CT Sep 2018. Patient declined bronchoscopy Arthritis (Chronic) BPH (benign prostatic hyperplasia) (Chronic) With urinary retention requiring Morales cath. Followed by Dr. Alvarado. CHF (congestive heart failure) (Chronic 07/07/14) Chronic systolic. Compensated. Echo showed EF 50-55% and moderate . Hyperlipidemia (Chronic) COPD (chronic obstructive pulmonary disease) (Chronic) CAD (coronary artery disease) (Chronic) POA believes pt may have had an MO, pt states he was just short of breath and led to CABG being done. GERD (gastroesophageal reflux disease) (Chronic) Glaucoma (Chronic) HTN (hypertension) (Chronic) Stroke (Chronic) Acute ischemic stroke right [employer] [facility] territory Sep 2018; old cerebellar stroke not ed at that time as well. Morales catheter in place (Chronic) Aortic stenosis, moderate (Chronic) History of sigmoidoscopy (Chronic) Macular degeneration (Chronic) Numbness and tingling in hands (Resolved 07/07/14) Surgical History History of cataract extraction (Chronic) Hx of four vessel coronary artery bypass graft (Chronic) [place] [facility] History of detached retina repair Family History Father , 62 Heart disease Mother , 99 No problems noted. Brother No problems noted. Sister Diabetes Social History Preferred Language: [place] Communication Ability: Effective Joint Runner Required: No Beliefs That Will Affect Care: None marital status: Single Current Living Situation: Personal Care Facility Current Living Situation Comment: does not use ambulatory assist device current occupational status: retired current occupation: Former [employer] years Feels Safe at Home: Yes Safety Concerns: Feels Safe At This Time Smoking Status: Current every day smoker Hx Alcohol Use: No Hx Substance Use: No Review of Systems All other systems were reviewed and negative except as noted in HPI Physical Exam Vital Signs (Past 24 Hours): Last Vital Signs Temp 36.3 C L 01/31/19 07:08 Pulse 70 01/31/19 07:08 Resp 16 01/31/19 07:08 BP 111/53 L 01/31/19 07:08 Pulse Ox 96 01/31/19 07:08 Physical Exam: General exam: Elderly male, appears cachectic, appears comfortable, no acute distress HEENT: Pupils are equal and reactive to light Neck: No JVD, neck is supple trachea is midline Respiratory system: Clear breath sounds bilaterally. Gastrointestinal: Abdomen is soft, non distended, non tender, bowel sounds are present CVS: Regular rate and rhythm. No murmurs, rubs or gallops Musculoskeletal: No joint or muscle tenderness Extremities: Non tender, no edema, peripheral pulses are present Neuro: Oriented, no tremors, no focal neurological deficits Skin: No rashes Results & Data Laboratory Results Creatinine of 1.26, BUN 53, potassium of 3.8
--- NOTE | 2019-01-31 14:55 | Cardiology Progress Note ---
Date of Service January 31, 2019 Assessment & Plan (1) Atrial flutter: Atrial flutter rates are better controlled will continue metoprolol but simplify dosing to 50 mg twice daily Patient anticoagulated with warfarin We will sign off (2) Status post cerebrovascular accident: (3) Chronic diastolic heart failure: Outpatient diuretic dose is 40 mg Lasix alternating with 20 mg. Currently receiving Lasix 20 mg daily. Follow fluid balance, daily weight, GFR, and electrolytes. (4) CAD in [place] artery: Stable without exertional angina. (5) S/P CABG (coronary artery bypass graft): (6) Right lower lobe pneumonia: (7) Lung mass: Subjective Patient seen and examined at the bedside. Poor historian. Heart rates better controlled on current regimen Physical Exam Vital Signs (Past 24 Hours): Last Vital Signs Temp 36.3 C L 01/31/19 07:08 Pulse 70 01/31/19 07:08 Resp 16 01/31/19 07:08 BP 111/53 L 01/31/19 07:08 Pulse Ox 96 01/31/19 07:08 Eyes: PERRL, conjunctivae normal, anicteric sclerae ENMT: Ears: + hearing impairment Mouth: + dentition abnormality (poor) Neck: trachea midline, no thyromegaly Respiratory: normal respiratory effort, lungs clear to auscultation no respiratory distress Auscultation: + rhonchi (right base) Cardiovascular: Rate/Rhythm: + tachycardic; + abnormal rhythm (irregular) Heart Sounds: + murmur (II/ sys murmur(s) heard at base and apex); no gallop and no cardiac rub Vessels: normal peripheral pulses (pedal pulses diminished); no JVD Extremities: normal capillary refill (bilat toes about 2 sec); no calf tenderness and no edema Gastrointestinal (Abdomen): normal bowel sounds, soft, nontender, no hepatosplenomegaly Musculoskeletal: Head/Neck/Chest: neck supple Extremities: + abnormal strength (mild weakness of lower extremities), no cyanosis and no clubbing (1) Atrial flutter Atrial flutter type: atypical Qualified Code(s): I48.4 - Atypical atrial flutter (2) Right lower lobe pneumonia Pneumonia type: due to unspecified organism Qualified Code(s): J18.1 - Lobar pneumonia, unspecified organism
[2019-01-31] MEDS: WARFARIN SOD 5 MG TAB PO SCH (16:30)
[2019-01-31] MEDS: TAMSULOSIN HCL 0.4 MG CAP PO SCH (20:12)
[2019-01-31] MEDS: ATORVASTATIN 40 MG TAB PO SCH (20:12)
[2019-01-31] MEDS: ACETAMINOPHEN 500 MG TAB PO PRN (20:20)
[2019-02-01 06:36] LABS: Creatinine Clr Calc Pharmacy 47.6 ml/min; Est GFR (African American) 74.9; Est GFR (Non-African American) 64.6
[2019-02-01 06:49] LABS: INR 1.6 (0.9-1.1); Partial Thromboplastin Time 27.6 Seconds (21.0-31.0); Prothrombin Time 15.9 Seconds (9.0-12.0)
[2019-02-01] MEDS: BRIMONIDINE TARTRATE-P 0.15% 5 ML BTL OP SCH ×3 (08:40→21:23)
[2019-02-01] MEDS: DORZOLAMIDE/TIMOLOL 22.3/6.8MG/ML 10 ML BTL OPL SCH ×2 (08:42→21:24)
[2019-02-01] MEDS: METOPROLOL TARTRATE 25 MG TAB PO SCH ×2 (08:46→17:04)
[2019-02-01] MEDS: CEROVITE ADV FORMULA TAB PO SCH ×2 (08:47→21:24)
[2019-02-01] MEDS: ESCITALOPRAM OXALATE 10 MG TAB PO SCH (08:47)
[2019-02-01] MEDS: CHOLECALCIFEROL 1,000 UNITS TAB PO SCH (08:48)
[2019-02-01] MEDS: ASPIRIN 81 MG ECTAB PO SCH (08:48)
[2019-02-01] MEDS: FINASTERIDE 5 MG TAB PO SCH (08:49)
[2019-02-01] MEDS: FUROSEMIDE 20 MG TAB PO SCH (08:49)
[2019-02-01] MEDS ORDERED: VANCOMYCIN TROUGH ONE (09:30)
--- NOTE | 2019-02-01 09:59 | Hospitalist Progress Note ---
Date of Service February 01, 2019 Assessment & Plan (1) Atrial flutter with rapid ventricular response: Persistent atrial flutter, on diltiazem drip. On metoprolol Stop IV heparin Continue Warfarin (2) CAD (coronary artery disease): h/o CABG, denies any chest pain. Cont medical management including ASA, Plavix, Metoprolol, lisinopril and statin. On warfarin INR 1.6 (3) Chronic systolic heart failure: improved EF with medications. Cont medical management as above. (4) Aortic stenosis, moderate: History of moderate with bicuspid aortic valve. Hemodynamically stable. (5) HTN (hypertension): Controlled (6) Right lower lobe pneumonia: Recently treated for flu and previous diagnoses of a R perihilar mass. Declined diagnostic bronchoscopy. Now with worsened RLL density. His rate is controlled, but he is still on drips. Cont Vanc and Ertapenem pending culture r esults and clinical improvement. +Leukocytosis-WBCs are down from 14 to 13 to 12 +UTI-continue Abx (7) Lung mass: As above, h/o smoking. Declined bronchoscopy (8) COPD (chronic obstructive pulmonary disease): chronic, no active wheezing, oxygenating well on room air. 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 Off clopidogrel. Now with atrial flutter. Off IV heparin; long-term Warfarin Continue aspirin. (10) BPH (benign prostatic hyperplasia): BPH with urinary retention followed by [facility]. TURP considered, but postponed in light of recent stroke. Continue Morales catheter. (11) Leg ulcer: Chronic ulcer right leg-pt would not let me evaluate this tonight. Wound Care Nursing. (12) Diarrhea: appears to have resolved. C-diff remains uncollected. (13) DANITA (acute kidney injury): Monitor creatinine currently 1.18 today up from 0.8 (14) DVT prophylaxis: DNR PT/OT Dispo:Cardiology recommendations and workup/clincal improvement related to lung mass Probable return to [facility] if functional status allows. Family Medicine follow-up with Dr. Salcido. Family says he is garbling his speech and he does not seem right per them they are requesting an MRI, MRI pending, however, he is on Aspirin, Plavix, Warfarin, and a Statin. He is also a DNR, I do not see where an MRI changes the management, but will try to appease them. Subjective ROS-feeling better today, no nausea, vomiting, fevers, chills, shortness of breath Physical Exam Gen-AAO x 2, NAD, Afebrile Head-NCAT, EOMI, PERRLA, Anicteric Sclera, No Posterior Pharyngeal Erythema Neck-Supple, No JVD, No Thyromegaly, No Masses, No LAD, No Bruits Lungs-Clear to Auscultation Bilaterally, No Rales, No Rhonchi, No Wheezing, No Crepitus Chest-No S4, +S1, +S2, No S3, No Murmurs, No Rubs, No Gallops, No Ectopy Abdomen-Soft, Bowel Sounds Present, Non Tender, Non Distended, No Hepatomegaly, No Splenomegaly, No Palpable Masses, No Rebound, No Rigidity, No Guarding Musculoskeletal-Full Range of Motion Bilaterally, No CVAT Extremities-No Cyanosis, No Clubbing, No Edema Nuero-Cranial Nerves II-XII grossly intact, Motor WNL, DTRs WNL, Strength WNL, Non Focal Psych-Anxious Eyes: + worsening vision (macular degeneration); no diplopia Respiratory: as per Subjective / HPI Cardiovascular: as per Subjective / HPI Gastrointestinal: + diarrhea/loose stools; no nausea, no vomiting, no constipation, no blood in stools and no melena Genitourinary (Male): + problem reported (Morales cath for urinary retention) Musculoskeletal: + joint pain; no myalgia Neurologic: + gait abnormality (needs assistance with ambulation); no headache(s) Hematologic / Lymphatic: + easy bruising; no easy bleeding and no lymphad enopathy Physical Exam Vital Signs (Past 24 Hours): Last Vital Signs Temp 36.3 C L 02/01/19 07:06 Pulse 71 02/01/19 07:06 Resp 19 02/01/19 07:06 BP 146/74 H 02/01/19 07:06 Pulse Ox 95 02/01/19 07:06 Results & Data Laboratory Results Current Diagnoses Anemia, unspecified (01/28/19) Hyperlipidemia, unspecified (01/28/19) Essential (primary) hypertension (01/28/19) Atherosclerotic heart disease of [place] coronary artery without angina pectoris (01/28/19) Nonrheumatic aortic (valve) stenosis (01/28/19) Atypical atrial flutter (01/28/19) Unspecified atrial flutter (01/28/19) Chronic systolic (congestive) heart failure (01/28/19) Chronic diastolic (congestive) heart failure (01/28/19) Cerebral infarction, unspecified (01/28/19) Lobar pneumonia, unspecified organism (01/28/19) Chronic obstructive pulmonary disease, unspecified (01/28/19) Non-pressure chronic ulcer of unspecified part of unspecified lower leg with unspecified severity (01/28/19) Acute kidney failure, unspecified (01/28/19) Benign prostatic hyperplasia without lower urinary tract symptoms (01/28/19) Diarrhea, unspecified (01/28/19) Other nonspecific abnormal finding of lung field (01/28/19) Encounter for administrative examinations, unspecified (01/28/19) Do not resuscitate (01/28/19) Personal history of transient ischemic attack (TIA), and cerebral infarction without residual deficits (01/28/19) Presence of aortocoronary bypass graft (01/28/19) Allergies cephalexin [From Keflex] Allergy (Mild, Verified 01/28/19 04:12) Hives Penicillins Allergy (Mild, Verified 01/28/19 04:12) HIVES ether Adverse Reaction (Verified 01/28/19 04:12) Unknown Height/Weight/Isolation Height 5 ft 6 in Weight 76.1 kg Chemistry 01/31/19 02/01/19 03:19 05:56 Sodium 142 Potassium 3.8 Chloride 110 H Carbon Dioxide 25 Anion Gap 7.0 BUN 53 H Creatinine 1.26 1.06 Glucose 129 H Microbiology 01/28/19 04:38 Urine,Clean Catch Urine Culture - Final Enterococcus faecalis (1) HTN (hypertension) Hypertension type: essential hypertension Qualified Code(s): I10 - Essential (primary) hypertension (2) Right lower lobe pneumonia Pneumonia type: due to unspecified organism Qualified Code(s): J18.1 - Lobar pneumonia, unspecified organism
[2019-02-01] MEDS ORDERED: LEVOFLOXACIN CONSULT ACTIVE PRN (10:45)
[2019-02-01] MEDS: ERTAPENEM SODIUM 1,000 MG in SODIUM CHLORIDE 0.9% 50 ML IV SCH (11:21)
[2019-02-01] MEDS: VANCOMYCIN HCL 1,000 MG in SODIUM CHLORIDE 0.9% 250 ML IV SCH (11:21)
--- NOTE | 2019-02-01 11:59 | Nephrology Progress Note ---
Date of Service February 01, 2019 Assessment & Plan (1) DANITA (acute kidney injury): Patient with acute kidney injury likely due to prerenal azotemia. He has a markedly high BUN in comparison to the creatinine. His UA was likely contaminated in setting of Morales catheter. He is receiving Lasix 20 mg daily. Lisinopril is on hold. Creatinine is better today at 1.06 after stopping lisinopril 1. Monitor input output. 2. Monitor vancomycin levels closely. Avoid levels above 25 as this can be nephrotoxic. Renal will sign off please call if additional questions or concerns. Subjective Patient seen in follow-up for acute kidney injury. He reports feeling well denies any shortness of breath. No vomiting or diarrhea. Urine output is improving over 1 L daily. Creatinine is downtrending to 1 Review of Systems All systems reviewed & are unremarkable except as noted in HPI & below Physical Exam Vital Signs (Past 24 Hours): Last Vital Signs Temp 36.4 C L 02/01/19 10:59 Pulse 74 02/01/19 10:59 Resp 18 02/01/19 10:59 BP 132/74 02/01/19 10:59 Pulse Ox 98 02/01/19 10:59 Physical Exam: General exam: Appears comfortable, no acute distress HEENT: Pupils are equal and reactive to light Neck: No JVD, neck is supple trachea is midline Respiratory system: Clear breath sounds bilaterally. Gastrointestinal: Abdomen is soft, non distended, non tender, bowel sounds are present CVS: Regular rate and rhythm. No murmurs, rubs or gallops Musculoskeletal: No joint or muscle tenderness Extremities: Non tender, no edema, peripheral pulses are present Neuro: Oriented, no tremors, no focal neurological deficits Skin: No rashes Results & Data Laboratory Results Creatinine 1.06
[2019-02-01] MEDS ORDERED: LEVOFLOXACIN/D5W 750 MG/150 ML BAG IV SCH (12:00)
[2019-02-01] MEDS: WARFARIN SOD 5 MG TAB PO SCH (17:02)
[2019-02-01] MEDS: ATORVASTATIN 40 MG TAB PO SCH (21:24)
[2019-02-01] MEDS: TAMSULOSIN HCL 0.4 MG CAP PO SCH (21:24)
[2019-02-02 07:14] LABS: INR 2.2 (0.9-1.1); Prothrombin Time 21.7 Seconds (9.0-12.0)
[2019-02-02 07:16] LABS: Creatinine Clr Calc Pharmacy 48.6 ml/min; Est GFR (African American) 76.6; Est GFR (Non-African American) 66.1
[2019-02-02] MEDS: BRIMONIDINE TARTRATE-P 0.15% 5 ML BTL OP SCH ×3 (09:05→21:49)
[2019-02-02] MEDS: CEROVITE ADV FORMULA TAB PO SCH ×2 (09:06→21:49)
[2019-02-02] MEDS: ESCITALOPRAM OXALATE 10 MG TAB PO SCH (09:06)
[2019-02-02] MEDS: DORZOLAMIDE/TIMOLOL 22.3/6.8MG/ML 10 ML BTL OPL SCH ×2 (09:06→21:49)
[2019-02-02] MEDS: CHOLECALCIFEROL 1,000 UNITS TAB PO SCH (09:06)
[2019-02-02] MEDS: FINASTERIDE 5 MG TAB PO SCH (09:07)
[2019-02-02] MEDS: METOPROLOL TARTRATE 25 MG TAB PO SCH ×2 (09:07→17:44)
[2019-02-02] MEDS: ASPIRIN 81 MG ECTAB PO SCH (09:07)
[2019-02-02] MEDS: FUROSEMIDE 20 MG TAB PO SCH (09:08)
--- NOTE | 2019-02-02 10:43 | Hospitalist Progress Note ---
Date of Service February 02, 2019 Assessment & Plan (1) Atrial flutter with rapid ventricular response: On metoprolol Continue Warfarin (2) CAD (coronary artery disease): h/o CABG, denies any chest pain. Cont medical management including ASA, Metoprolol, lisinopril and statin. On warfarin INR 2.2 (3) Chronic systolic heart failure: improved EF with medications. Cont medical management as above. (4) Aortic stenosis, moderate: History of moderate with bicuspid aortic valve. Hemodynamically stable. (5) HTN (hypertension): Controlled (6) Right lower lobe pneumonia: Recently treated for flu and previous diagnoses of a R perihilar mass. Declined diagnostic bronchoscopy. Now with worsened RLL density. His rate is controlled, but he is still on drips. Cont Vanc and Ertapenem pending culture results and clinical improvement. +Leukocytosis-WBCs are down from 14 to 13 to 12 to +UTI-continue Abx (7) Lung mass: As above, h/o smoking. Declined bronchoscopy (8) COPD (chronic obstructive pulmonary disease): chronic, no active wheezing, oxygenating well on room air. 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 Off clopidogrel. Now with atrial flutter. Off IV heparin; long-term Warfarin Continue aspirin. (10) BPH (benign prostatic hyperplasia): BPH with urinary retention followed by [facility] Urology. TURP considered, but postponed in light of recent stroke. Continue Morales catheter. (11) Leg ulcer: Chronic ulcer right leg-pt would not let me evaluate this tonight. Wound Care Nursing. (12) Diarrhea: appears to have resolved. C-diff remains uncollected. (13) DANITA (acute kidney injury): Monitor creatinine currently 1.18 today up from 0.8 (14) DVT prophylaxis: DNR PT/OT Dispo:Cardiology recommendations and workup/clincal improvement related to lung mass Probable return to [facility] if functional status allows. Family Medicine follow-up with Dr. Salcido. PT moved too much during MRI, will not order another, won't change treatment, Will stop Warfarin-Fall risk DC tomorrow 02/03 to [facility] or [place], await PT/OT recs Subjective 83-year-old male followed by Dr. Salcido for Family Medicine. History of coronary artery disease, CHF, hypertension, cerebrovascular disease, COPD, pulmonary mass, and other problems. Currently a resident at [facility] Hospitalized at [facility] in September 2018. He was initially hospitalized for evaluation of hip pain after a fall. He fell again during his hospital stay. CT showed chronic microvascular changes, suspected meningioma left frontal lobe. MRI demonstrated an acute infarct of the right [employer] territory affecting the right occipital lobe as well as additional suspected regional embolic infarcts, old left cerebellar infarct, chronic small vessel disease, 2 cm left frontal mass consistent with meningioma. CTA of cervical vessels demonstrated high-grade stenosis of the vertebral arteries. No apparent cardioembolic source per echocardiogram. Rhythm on 12-lead EKG sinus bradycardia. During that hospital stay he was found to have a right perihilar mass measuring 6.6 cm. Significant smoking history. Diagnostic options were discussed and patient opted not to pursue a tissue diagnosis.He was discharged to rehab on 10/05/18 and later transferred to [facility]. A week prior to his admission he was treated for influenza. Sent to ED during his hospital stay he was found to have a urinary tract infection and a because of worsening cough and shortness of breath. Cough productive of yellow sputum. No chest pain. In the ED he was found to be tachycardic with a heart rate of 140. Received IV metoprolol with slowing of his ventricular rate, making underlying flutter waves apparent. During his stay he was found to have a urinary tract infection and a pneumonia. He had an altered mental status and his white blood cell count was elevated. With IV antibiotics it has been coming down and his mental status is been returning to normal. ROS-No Headache, No Visual Changes, No Nausea, No Vomiting, No Fever, No Chills, No Neck Pain or Stiffness, No Chest Pain, No Palpitations, No SOB, No LESTER, No Cough, No Sputum, No Wheezing, No Abdominal Pain, No Diarrhea, No Hematemesis, No Hemoptysis, No Unexpected Weight Loss, No Flank pain, No Melena, No Hematochezia, No Frequency, No Urgency, No Burning, No Hematuria, No Rashes, No Diaphoresis. Appetite is Normal, he says he feels awful, but his review of systems is negative Physical Exam Gen-AAO x 3, NAD, Afebrile Head-NCAT, EOMI, PERRLA, Anicteric Sclera, No Posterior Pharyngeal Erythema Neck-Supple, No JVD, No Thyromegaly, No Masses, No LAD, No Bruits Lungs-Clear to Auscultation Bilaterally, No Rales, No Rhonchi, No Wheezing, No Crepitus Chest-No S4, +S1, +S2, No S3, No Murmurs, No Rubs, No Gallops, No Ectopy Abdomen-Soft, Bowel Sounds Present, Non Tender, Non Distended, No Hepatomegaly, No Splenomegaly, No Palpable Masses, No Rebound, No Rigidity, No Guarding Musculoskeletal-Full Range of Motion Bilaterally, No CVAT Extremities-No Cyanosis, No Clubbing, No Edema Nuero-Cranial Nerves II-XII grossly intact, Motor WNL, DTRs WNL, Strength WNL, Non Focal Psych-Normal Mood Physical Exam Vital Signs (Past 24 Hours): Last Vital Signs Temp 36.5 C 02/02/19 07:09 Pulse 60 02/02/19 09:48 Resp 19 02/02/19 07:09 BP 133/73 02/02/19 07:09 Pulse Ox 94 02/02/19 07:09 Results & Data Laboratory Results Reviewed (1) HTN (hypertension) Hypertension type: essential hypertension Qualified Code(s): I10 - Essential (primary) hypertension (2) Right lower lobe pneumonia Pneumonia type: due to unspecified organism Qualified Code(s): J18.1 - Lobar pneumonia, unspecified organism
[2019-02-02] MEDS: WARFARIN SOD 5 MG TAB PO SCH (17:08)
[2019-02-02] MEDS: ATORVASTATIN 40 MG TAB PO SCH (21:49)
[2019-02-02] MEDS: TAMSULOSIN HCL 0.4 MG CAP PO SCH (21:49)
[2019-02-03 06:50] LABS: Hematocrit (blood only) 31.2 % (42-52); Hemoglobin 9.8 g/dL (14.0-18.0); Mean Corpuscular Hgb Conc 31.4 g/dL (32-36); Mean Corpuscular Volume 89.7 fL (80-100); Mean Platelet Volume 10.9 fL (7.4-10.4); Platelet Count 298 K/uL (130-400); RDW Coefficient of Variation 15.4 % (11.5-14.5); RDW Standard Deviation 48.6 fL (36.4-46.3); Red Blood Count 3.48 M/uL (4.7-6.1); White Blood Count 15.46 K/uL (4.8-10.8)
[2019-02-03 07:04] LABS: INR 2.9 (0.9-1.1); Prothrombin Time 27.9 Seconds (9.0-12.0)
[2019-02-03 07:19] LABS: BUN Creatinine Ratio 39.4 (10-20); Calcium 8.5 mg/dl (8.5-10.1); Est GFR (African American) 81.3; Est GFR (Non-African American) 70.1
[2019-02-03] MEDS: BRIMONIDINE TARTRATE-P 0.15% 5 ML BTL OP SCH ×3 (08:02→20:44)
[2019-02-03] MEDS: METOPROLOL TARTRATE 25 MG TAB PO SCH ×2 (08:03→17:04)
[2019-02-03] MEDS: ESCITALOPRAM OXALATE 10 MG TAB PO SCH (08:03)
[2019-02-03] MEDS: CEROVITE ADV FORMULA TAB PO SCH ×2 (08:03→20:46)
[2019-02-03] MEDS: CHOLECALCIFEROL 1,000 UNITS TAB PO SCH (08:03)
[2019-02-03] MEDS: FINASTERIDE 5 MG TAB PO SCH (08:04)
[2019-02-03] MEDS: ASPIRIN 81 MG ECTAB PO SCH (08:04)
[2019-02-03] MEDS: FUROSEMIDE 20 MG TAB PO SCH (08:04)
[2019-02-03] MEDS: DORZOLAMIDE/TIMOLOL 22.3/6.8MG/ML 10 ML BTL OPL SCH ×2 (08:05→20:45)
--- NOTE | 2019-02-03 08:18 | XRay Report ---
XR chest 1V portable HISTORY: Pneumonia. Follow-up. COMPARISON: Chest 01/28/2019. FINDINGS: No pneumothorax. Small bilateral pleural effusions. Progressive interstitial and vascular t hickening. Bibasilar densities, right greater than left have also progressed. The heart is mildly enl arged. There are poststernotomy changes. IMPRESSION: 1. Interval development of pulmonary edema and small bilateral pleural effusions. 2. Bibasilar densities, right greater than left, have also progressed. This could represent worsening pneumonia or pulmonary edema. Electronically signed by: Glenn Mayen M.D. 02/03/2019 8:17 AM
--- NOTE | 2019-02-03 11:12 | Infectious Disease Consult ---
Date of Consultation February 03, 2019 Assessment & Plan (1) Leukocytosis: no clear infection noted, already treated for uti. no additional abx at this time. ? reactive leukocytosis due to underlying mass. will check procalcitonin. hold abx for now. History of Present Illness Attending Physician: Marty Calderon DO pt admitted with increased sob at [facility]. found in ER to have afib with rvr, cardio following. has been at [facility] since admission to hospital in 09/2018 - found to have CVA and meningioma during that stay, also found to have a right perhilar mass on imaging, per chart, declined additional workup. has chronic buenrostro, in ER UA > 30 wbc, +1 bacteria, urine culture grew E. faecalis, [place] sensitive, was treated wtih course of vanco, tolerated well. last level on 02/01 - 20.6. wbc intially 11, now 15, ID consulted for increased wbc. pt oob to chair on my exam. States he feels "fair", states breathing is "fair". CXR in ER showed rll pneumonitis, repeat cxr this am with b/l infiltrates r>l. video swallow done ov er weekend, negative for aspiration but barium pooling noted. denies cough, sob, cp. no n/v/d/abd pain, no joint pain. denies f/c. no abx currently. blood cultures negative and final. 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 Allergies Allergy/AdvReac Type Severity Reaction Status Date / Time cephalexin [From Keflex] Allergy Mild Hives Verified 01/28/19 04:12 Penicillins Allergy Mild HIVES Verified 01/28/19 04:12 ether AdvReac Unknown Verified 01/28/19 04:12 Home Medications Home Medications Medication Instructions Recorded Confirmed Type acetaminophen 500 mg PO Q4 PRN MDD 3g/24hr 11/12/18 01/28/19 History aspirin [Aspirin Low Dose] 81 mg PO QAM 11/12/18 01/28/19 History atorvastatin 40 mg PO QPM 11/12/18 01/28/19 History brimonidine 1 drp OPHTHALMIC (EYE) TID 11/12/18 01/28/19 History carvedilol 6.25 mg PO BIDM 11/12/18 01/28/19 History cholecalciferol (vitamin D3) 1,000 unit PO QAM 11/12/18 01/28/19 History [Vitamin D3] clopidogrel 75 mg PO QAM 11/12/18 01/28/19 History docusate sodium 100 mg PO BID 11/12/18 01/28/19 History dorzolamide-timolol (PF) [Cosopt 1 drp OPL BID 11/12/18 01/28/19 History (PF)] escitalopram oxalate 5 mg PO QAM 11/12/18 01/28/19 History finasteride 5 mg PO QAM 11/12/18 01/28/19 History glucosamine sulfate 1,000 mg PO BID 11/12/18 01/28/19 History lisinopril 5 mg PO QAM 11/12/18 01/28/19 History tamsulosin 0.4 mg PO QPM 11/12/18 01/28/19 History vit C,A-Pb-ldcuq-lutein-zeaxan 1 tab PO BID 11/12/18 01/28/19 History [PreserVision AREDS-2] diphenhydramine-zinc acetate 1 applic TOPICAL TID PRN 01/28/19 01/28/19 History [Benadryl Itch Stopping] furosemide 20 mg PO Q OTHER DAY 01/28/19 01/28/19 History furosemide 40 mg PO Q OTHER DAY 01/28/19 01/28/19 History hydrocortisone 1 applic TOPICAL TID PRN 01/28/19 01/28/19 History potassium chloride 10 meq PO DAILY 01/28/19 01/28/19 History Patient History Medical History Lung mass (Chronic) 6.6 cm right perihilar mass per CT Sep 2018. Patient declined bronchoscopy Arthritis (Chronic) BPH (benign prostatic hyperplasia) (Chronic) With urinary retention requiring Buenrostro cath. Followed by Dr. Alvarado. CHF (congestive heart failure) (Chronic 07/07/14) Chronic systolic. Compensated. Echo showed EF 50-55% and moderate . Hyperlipidemia (Chronic) COPD (chronic obstructive pulmonary disease) (Chronic) CAD (coronary artery disease) (Chronic) POA believes pt may have had an MN, pt states he was just short of breath and led to CABG being done. GERD (gastroesophageal reflux disease) (Chronic) Glaucoma (Chronic) HTN (hypertension) (Chronic) Stroke (Chronic) Acute ischemic stroke right [place] territory Sep 2018; old cerebellar stroke noted at that time as well. Buenrostro catheter in place (Chronic) Aortic stenosis, moderate (Chronic) History of sigmoidoscopy (Chronic) Macular degeneration (Chronic) Numbness and tingling in hands (Resolved 07/07/14) Surgical History History of cataract extraction (Chronic) Hx of four vessel coronary artery bypass graft (Chronic) 1992, [facility] History of detached retina repair Family History Father , 62 Heart disease Mother , 99 No problems noted. Brother No problems noted. Sister Diabetes Social History Preferred Language: Vietnamese Communication Ability: Effective Weaving Loom Operator Required: No Beliefs That Will Affect Care: None marital status: Single Current Living Situation: Personal Care Facility Current Living Situation Comment: does not use ambulatory assist device current occupational status: retired current occupation: Former [employer] years Feels Safe at Home: Yes Safety Concerns: Feels Safe At This Time Smoking Status: Current every day smoker Hx Alcohol Use: No Hx Substance Use: No Review of Systems all remaining ros reviewed and are negative Physical Exam Vital Signs (Past 24 Hours): Last Vital Signs Temp 36.0 C L 02/03/19 07:04 Pulse 62 02/03/19 07:04 Resp 20 02/03/19 07:04 BP 161/79 H 02/03/19 07:04 Pulse Ox 97 02/03/19 07:04 Constitutional: WD/WN, vitals as above Eyes: PERRL, conjunctivae normal, anicteric sclerae ENMT: external ear and nose normal, oropharynx normal Nose: + dry nasal mucous membranes Neck: normal visual inspection Respiratory: normal respiratory effort, lungs clear to auscultation Auscultation: + diminished lung sounds; no crackles, no rales, no rhonchi and no wheezes Cardiovascular: RRR, no murmur, no edema Gastrointestinal (Abdomen): normal bowel sounds, soft, nontender, no hepatosplenomegaly Musculoskeletal: no cyanosis or clubbing, extremities motor strength 5/5 Skin: no rashes, warm and dry Psychiatric: A+Ox3, euthymic affect Results & Data Laboratory Results Microbiology 01/28/19 04:00 Blood Blood Culture - Final No growth 01/28/19 03:48 Blood Blood Culture - Final No growth 01/28/19 04:38 Urine,Clean Catch Urine Culture - Final Enterococcus faecalis
--- NOTE | 2019-02-03 11:52 | Hospitalist Progress Note ---
Date of Service February 03, 2019 Assessment & Plan (1) Atrial flutter with rapid ventricular response: On metoprolol Continue Warfarin, INR 2.9 and he was switched to Levaquin yesterday which will elevate his INR Was on Invanz and Vanco and he was getting better and WBCs were Improving, now they are up, Dr Hi-ID to see (2) CAD (coronary artery disease): h/o CABG, denies any chest pain. Cont medical management including ASA, Metoprolol, lisinopril and statin. On warfarin INR 2.2 (3) Chronic systolic heart failure: improved EF with medications. Cont medical management as above. (4) Aortic stenosis, moderate: History of moderate with bicuspid aortic valve. Hemodynamically stable. (5) HTN (hypertension): Controlled (6) Right lower lobe pneumonia: Recently treated for flu and previous diagnoses of a R perihilar mass. Declined diagnostic bronchoscopy. Now with worsened RLL density. His rate is controlled, but he is still on drips. Cont Vanc and Ertapenem pending culture results and clinical improvement. +Leukocytosis-WBCs are up after stopping Vanco and Invanz from 14 to 13 to 12 to 15 +UTI-continue Abx (7) Lung mass: As above, h/o smoking. Declined bronchoscopy (8) COPD (chronic obstructive pulmonary disease): chronic, no active wheezing, oxygenating well on room air. 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 Off clopidogrel. Now with atrial flutter. Off IV heparin; long-term Warfarin Continue aspirin. (10) BPH (benign prostatic hyperplasia): BPH with urinary retention followed by [facility]. TURP considered, but postponed in light of recent stroke. Continue Morales catheter. (11) Leg ulcer: Chronic ulcer right leg-pt would not let me evaluate this tonight. Wound Care Nursing. (12) Diarrhea: appears to have resolved. C-diff remains uncollected. (13) DANITA (acute kidney injury): Monitor creatinine (14) DVT prophylaxis: DNR PT/OT Dispo:Cardiology recommendations and workup/clincal improvement related to lung mass Probable return to [facility] if functional status allows. Family Medicine follow-up with Dr. Salcido. PT moved too much during MRI, will not order another, won't change treatment, Will stop Warfarin-Fall risk Was on Invanz and Vanco and he was getting better and WBCs were Improving, now they are up, Dr Thomas to see Dispo Per PT/OT Subjective 83-year-old male followed by Dr. Salcido for Family Medicine. History of coronary artery disease, CHF, hypertension, cerebrovascular disease, COPD, pulmonary mass, and other problems. Currently a resident at [facility]. Hospitalized at [facility] in September 2018. He was initially hospitalized for evaluation of hip pain after a fall. He fell again during his hospital stay. CT showed chronic microvascular changes, suspected meningioma left frontal lobe. MRI demonstrated an acute infarct of the right [employer] territory affecting the right occipital lobe as well as additional suspected regional embolic infarcts, old left cerebellar infarct, chronic small vessel disease, 2 cm left frontal mass consistent with meningioma. CTA of cervical vessels demonstrated high-grade stenosis of the vertebral arteries. No apparent cardioembolic source per echocardiogram. Rhythm on 12-lead EKG sinus bradycardia. During that hospital stay he was found to have a right perihilar mass measuring 6.6 cm. Significant smoking history. Diagnostic options were discussed and patient opted not to pursue a tissue diagnosis.He was discharged to rehab on 10/05/18 and later transferred to [facility]. A week prior to his admission he was treated for influenza. Sent to ED during his hospital stay he was found to have a urinary tract infection and a because of worsening cough and shortness of breath. Cough productive of yellow sputum. No chest pain. In the ED he was found to be tachycardic with a heart rate of 140. Received IV metoprolol with slowing of his ventricular rate, making underlying flutter waves apparent. During his stay he was found to have a urinary tract infection and a pneumonia. He had an altered mental status and his white blood cell count was elevated. With IV antibiotics it has been coming down and his mental status is been returning to normal. ROS-No Headache, No Visual Changes, No Nausea, No Vomiting, No Fever, No Chills, No Neck Pain or Stiffness, No Chest Pain, No Palpitations, No SOB, No LESTER, No Cough, No Sputum, No Wheezing, No Abdominal Pain, No Diarrhea, No Hematemesis, No Hemoptysis, No Unexpected Weight Loss, No Flank pain, No Melena, No Hematochezia, No Frequency, No Urgency, No Burning, No Hematuria, No Rashes, No Diaphoresis. Appetite is Normal, he says he feels awful, but his review of systems is negative Physical Exam Gen-AAO x 3, NAD, Afebrile, looks better QD Head-NCAT, EOMI, PERRLA, Anicteric Sclera, No Posterior Pharyngeal Erythema Neck-Supple, No JVD, No Thyromegaly, No Masses, No LAD, No Bruits Lungs-Clear to Auscultation Bilaterally, No Rales, No Rhonchi, No Wheezing, No Crepitus Chest-No S4, +S1, +S2, No S3, No Murmurs, No Rubs, No Gallops, No Ectopy Abdomen-Soft, Bowel Sounds Present, Non Tender, Non Distended, No Hepatomegaly, No Splenomegaly, No Palpable Masses, No Rebound, No Rigidity, No Guarding Musculoskeletal-Full Range of Motion Bilaterally, No CVAT Extremities-No Cyanosis, No Clubbing, No Edema Nuero-Cranial Nerves II-XII grossly intact, Motor WNL, DTRs WNL, Strength WNL, Non Focal Psych-Normal Mood Physical Exam Vital Signs (Past 24 Hours): Last Vital Signs Temp 36.0 C L 02/03/19 07:04 Pulse 62 02/03/19 07:04 Resp 20 02/03/19 07:04 BP 161/79 H 02/03/19 07:04 Pulse Ox 97 02/03/19 07:04 Results & Data Laboratory Results reviewed (1) HTN (hypertension) Hypertension type: essential hypertension Qualified Code(s): I10 - Essential (primary) hypertension (2) Right lower lobe pneumonia Pneumonia type: due to unspecified organism Qualified Code(s): J18.1 - Lobar pneumonia, unspecified organism
[2019-02-03] MEDS ORDERED: WARFARIN SOD 3 MG TAB PO SCH (16:00)
[2019-02-03] MEDS: WARFARIN SOD 2 MG TAB PO SCH (17:03)
[2019-02-03] MEDS: TAMSULOSIN HCL 0.4 MG CAP PO SCH (20:46)
[2019-02-03] MEDS: ATORVASTATIN 40 MG TAB PO SCH (20:46)
[2019-02-04 07:46] LABS: INR 3.3 (0.9-1.1); Prothrombin Time 31.5 Seconds (9.0-12.0)
[2019-02-04 07:57] LABS: Est GFR (African American) 79.4; Est GFR (Non-African American) 68.5
[2019-02-04] MEDS: BRIMONIDINE TARTRATE-P 0.15% 5 ML BTL OP SCH ×3 (08:00→20:28)
[2019-02-04] MEDS: DORZOLAMIDE/TIMOLOL 22.3/6.8MG/ML 10 ML BTL OPL SCH ×2 (08:04→20:33)
[2019-02-04] MEDS: METOPROLOL TARTRATE 25 MG TAB PO SCH ×2 (08:04→17:45)
[2019-02-04] MEDS: CHOLECALCIFEROL 1,000 UNITS TAB PO SCH (08:04)
[2019-02-04] MEDS: ESCITALOPRAM OXALATE 10 MG TAB PO SCH (08:04)
[2019-02-04] MEDS: FINASTERIDE 5 MG TAB PO SCH (08:05)
[2019-02-04] MEDS: FUROSEMIDE 20 MG TAB PO SCH (08:05)
[2019-02-04] MEDS: CEROVITE ADV FORMULA TAB PO SCH ×2 (08:05→20:30)
[2019-02-04] MEDS: ASPIRIN 81 MG ECTAB PO SCH (08:05)
--- NOTE | 2019-02-04 12:30 | Hospitalist Progress Note ---
Date of Service February 04, 2019 Assessment & Plan (1) Atrial flutter with rapid ventricular response: On metoprolol Continue Warfarin, INR 2.9 and he was switched to Levaquin yesterday which will elevate his INR Was on Invanz and Vanco and he was getting better and WBCs were Improving, now they are up, ID on case (2) CAD (coronary artery disease): h/o CABG, denies any chest pain. Cont medical management including ASA, Metoprolol, lisinopril and statin. On warfarin INR 2.2 (3) Chronic systolic heart failure: improved EF with medications. Cont medical management as above. (4) Aortic stenosis, moderate: History of moderate with bicuspid aortic valve. Hemodynamically stable. (5) HTN (hypertension): Controlled (6) Right lower lobe pneumonia: Recently treated for flu and previous diagnoses of a R perihilar mass. Declined diagnostic bronchoscopy. Now with worsened RLL density. His rate is controlled, but he is still on drips. Cont Vanc and Ertapenem pending culture results and clinical improvement. +Leukocytosis-WBCs are up after stopping Vanco and Invanz from 14 to 13 to 12 to 15, will DC his halfway today if WBCs are coming down. +UTI-off abx (7) Lung mass: As above, h/o smoking. Declined bronchoscopy (8) COPD (chronic obstructive pulmonary disease): chronic, no active wheezing, oxygenating well on room air. 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 Off clopidogrel. Now with atrial flutter. Off IV heparin; long-term Warfarin, INR 3.3 sec to Levaquin Continue aspirin. (10) BPH (benign prostatic hyperplasia): BPH with urinary retention followed by [facility]. TURP considered, but postponed in light of recent stroke. Continue Morales catheter. (11) Leg ulcer: Chronic ulcer right leg-pt would not let me evaluate this tonight. Wound Care Nursing. (12) Diarrhea: appears to have resolved. C-diff remains uncollected. (13) DANITA (acute kidney injury): Monitor creatinine (14) DVT prophylaxis: DNR PT/OT Dispo:Cardiology recommendations and workup/clincal improvement related to lung mass Probable return to [facility] if functional status allows. Family Medicine follow-up with Dr. Salcido. PT moved too much during MRI, will not order another, won't change treatment, Will stop Warfarin-Fall risk Was on Invanz and Vanco and he was getting better and WBCs were Improving, now they are up, ID on case Dispo Per PT/OT Subjective 83-year-old male followed by Dr. Salcido for Family Medicine. History of coronary artery disease, CHF, hypertension, cerebrovascular disease, COPD, pulmonary mass, and other problems. Currently a resident at [facility]. Hospitalized at [facility] in September 2018. He was initially hospitalized for evaluation of hip pain after a fall. He fell again during his hospital stay. CT showed chronic microvascular changes, suspected meningioma left frontal lobe. MRI demonstrated an acute infarct of the right [employer]ARM [employer]IN[employer] territory affecting the right occipital lobe as well as additional suspected regional embolic infarcts, old left cerebellar infarct, chronic small vessel disease, 2 cm left frontal mass consistent with meningioma. CTA of cervical vessels demonstrated high-grade stenosis of the vertebral arteries. No apparent cardioembolic source per echocardiogram. Rhythm on 12-lead EKG sinus bradycardia. During that hospital stay he was found to have a right perihilar mass measuring 6.6 cm. Significant smoking history. Diagnostic options were discussed and patient opted not to pursue a tissue diagnosis.He was discharged to rehab on 10/05/18 and later transferred to [facility]. A week prior to his admission he was treated for influenza. Sent to ED during his hospital stay he was found to have a urinary tract infection and a because of worsening cough and shortness of breath. Cough productive of yellow sputum. No chest pain. In the ED he was found to be tachycardic with a heart rate of 140. Received IV metoprolol with slowing of his ventricular rate, making underlying flutter waves apparent. During his stay he was found to have a urinary tract infection and a pneumonia. He had an altered mental status and his white blood cell count was elevated. Wit h IV antibiotics it has been coming down and his mental status is been returning to normal. ROS-No Headache, No Visual Changes, No Nausea, No Vomiting, No Fever, No Chills, No Neck Pain or Stiffness, No Chest Pain, No Palpitations, No SOB, No LESTER, No Cough, No Sputum, No Wheezing, No Abdominal Pain, No Diarrhea, No Hematemesis, No Hemoptysis, No Unexpected Weight Loss, No Flank pain, No Melena, No Hematochezia, No Frequency, No Urgency, No Burning, No Hematuria, No Rashes, No Diaphoresis. Appetite is Normal, he says he feels awful, but his review of systems is negative Physical Exam Gen-AAO x 3, NAD, Afebrile, looks better QD Head-NCAT, EOMI, PERRLA, Anicteric Sclera, No Posterior Pharyngeal Erythema Neck-Supple, No JVD, No Thyromegaly, No Masses, No LAD, No Bruits Lungs-Clear to Auscultation Bilaterally, No Rales, No Rhonchi, No Wheezing, No Crepitus Chest-No S4, +S1, +S2, No S3, No Murmurs, No Rubs, No Gallops, No Ectopy Abdomen-Soft, Bowel Sounds Present, Non Tender, Non Distended, No Hepatomegaly, No Splenomegaly, No Palpable Masses, No Rebound, No Rigidity, No Guarding Musculoskeletal-Full Range of Motion Bilaterally, No CVAT Extremities-No Cyanosis, No Clubbing, No Edema Nuero-Cranial Nerves II-XII grossly intact, Motor WNL, DTRs WNL, Strength WNL, Non Focal Psych-Normal Mood Physical Exam Vital Signs (Past 24 Hours): Last Vital Signs Temp 35.7 C L 02/04/19 10:44 Pulse 48 L 02/04/19 10:44 Resp 16 02/04/19 10:44 BP 129/56 L 02/04/19 10:44 Pulse Ox 95 02/04/19 10:44 Results & Data Laboratory Results Current Diagnoses Anemia, unspecified (01/28/19) Elevated white blood cell count, unspecified (01/28/19) Hyperlipidemia, unspecified (01/28/19) Essential (primary) hypertension (01/28/19) Atherosclerotic heart disease of [place] coronary artery without angina pectoris (01/28/19) Nonrheumatic aortic (valve) stenosis (01/28/19) Atypical atrial flutter (01/28/19) Unspecified atrial flutter (01/28/19) Chronic systolic (congestive) heart failure (01/28/19) Chronic diastolic (congestive) heart failure (01/28/19) Cerebral infarction, unspecified (01/28/19) Lobar pneumonia, unspecified organism (01/28/19) Chronic obstructive pulmonary disease, unspecified (01/28/19) Non-pressure chronic ulcer of unspecified part of unspecified lower leg with unspecified severity (01/28/19) Acute kidney failure, unspecified (01/28/19) Benign prostatic hyperplasia without lower urinary tract symptoms (01/28/19) Diarrhea, unspecified (01/28/19) Other nonspecific abnormal finding of lung field (01/28/19) Encounter for administrative examinations, unspecified (01/28/19) Do not resuscitate (01/28/19) Personal history of transient ischemic attack (TIA), and cerebral infarction without residual deficits (01/28/19) Presence of aortocoronary bypass graft (01/28/19) Allergies cephalexin [From Keflex] Allergy (Mild, Verified 01/28/19 04:12) Hives Penicillins Allergy (Mild, Verified 01/28/19 04:12) HIVES ether Adverse Reaction (Verified 01/28/19 04:12) Unknown Height/Weight/Isolation Height 5 ft 6 in Weight 76.4 kg Chemistry 02/03/19 02/04/19 06:23 06:51 Sodium 144 Potassium 4.0 Chloride 111 H Carbon Dioxide 29 Anion Gap 5.0 BUN 39 H Creatinine 0.99 1.01 Glucose 127 H (1) Right lower lobe pneumonia Pneumonia type: due to unspecified organism Qualified Code(s): J18.1 - Lobar pneumonia, unspecified organism (2) HTN (hypertension) Hypertension type: essential hypertension Qualified Code(s): I10 - Essential (primary) hypertension
[2019-02-04 12:55] LABS: Basophils # (auto) 0.02 K/uL (0-0.2); Basophils % (auto) 0.1 %; Eosinophils % (auto) 2.3 %; Hematocrit (blood only) 31.8 % (42-52); Immature Granulocytes % (auto) 0.6 %; Lymphocytes # (auto) 0.93 K/uL (1.2-3.4); Lymphocytes % (auto) 5.4 %; Mean Corpuscular Volume 89.3 fL (80-100); Mean Platelet Volume 10.6 fL (7.4-10.4); Monocytes % (auto) 8.1 %; Neutrophils # (auto) 14.39 K/uL (1.4-6.5); Neutrophils % (auto) 83.5 %; Platelet Count 300 K/uL (130-400); RDW Coefficient of Variation 15.5 % (11.5-14.5); RDW Standard Deviation 49.7 fL (36.4-46.3); Red Blood Count 3.56 M/uL (4.7-6.1); White Blood Count 17.24 K/uL (4.8-10.8)
[2019-02-04 12:58] LABS: Mean Corpuscular Hgb Conc 31.4 g/dL (32-36)
[2019-02-04] MEDS: TAMSULOSIN HCL 0.4 MG CAP PO SCH (20:30)
[2019-02-04] MEDS: ATORVASTATIN 40 MG TAB PO SCH (20:30)
[2019-02-05 06:57] LABS: Hematocrit (blood only) 31.9 % (42-52); Hemoglobin 9.8 g/dL (14.0-18.0); Mean Corpuscular Hgb Conc 30.7 g/dL (32-36); Mean Corpuscular Volume 88.9 fL (80-100); Mean Platelet Volume 10.6 fL (7.4-10.4); Platelet Count 284 K/uL (130-400); RDW Coefficient of Variation 15.5 % (11.5-14.5); RDW Standard Deviation 49.6 fL (36.4-46.3); Red Blood Count 3.59 M/uL (4.7-6.1); White Blood Count 18.03 K/uL (4.8-10.8)
[2019-02-05 07:10] LABS: INR 3.4 (0.9-1.1); Prothrombin Time 32.1 Seconds (9.0-12.0)
[2019-02-05 07:37] LABS: Albumin Level 2.4 gm/dl (3.4-5.0); BUN Creatinine Ratio 35.4 (10-20); Calcium 8.1 mg/dl (8.5-10.1); Creatinine Clr Calc Pharmacy 53.2 ml/min; Est GFR (African American) 85.5; Est GFR (Non-African American) 73.7; Potassium 3.8 mmol/L (3.5-5.1)
[2019-02-05 07:39] LABS: Albumin Globulin Ratio 0.7 (0.9-2); Bilirubin,Total 0.5 mg/dl (0.2-1); Globulin 3.4 gm/dl (2.5-4.0); Total Protein 5.8 gm/dl (6.4-8.2)
[2019-02-05] MEDS: METOPROLOL TARTRATE 25 MG TAB PO SCH ×2 (09:27→16:24)
[2019-02-05] MEDS: FINASTERIDE 5 MG TAB PO SCH (09:27)
[2019-02-05] MEDS: ASPIRIN 81 MG ECTAB PO SCH (09:28)
[2019-02-05] MEDS: FUROSEMIDE 20 MG TAB PO SCH (09:28)
[2019-02-05] MEDS: ESCITALOPRAM OXALATE 10 MG TAB PO SCH (09:28)
[2019-02-05] MEDS: CEROVITE ADV FORMULA TAB PO SCH ×2 (09:28→20:25)
[2019-02-05] MEDS: CHOLECALCIFEROL 1,000 UNITS TAB PO SCH (09:30)
[2019-02-05] MEDS: DORZOLAMIDE/TIMOLOL 22.3/6.8MG/ML 10 ML BTL OPL SCH ×2 (09:30→20:25)
[2019-02-05] MEDS: BRIMONIDINE TARTRATE-P 0.15% 5 ML BTL OP SCH ×3 (09:31→20:24)
--- NOTE | 2019-02-05 12:48 | Hospitalist Progress Note ---
Date of Service February 05, 2019 Assessment & Plan (1) Leukocytosis: WBC continues to elevate to 18K Possible due to reactive from the lung mass vs PNA CXR showed Bibasilar densities, right greater than left, have also progressed Afebrile and normal procalcitonin Was on abx that was d/c ID on board COntinue monitor (2) Atrial flutter with rapid ventricular response: Rate control on metoprolol Continue Warfarin, INR 3.4 today Will hold today dose of coumadin Continue monitor (3) CAD (coronary artery disease): h/o CABG, denies any chest pain. Continue ASA, Metoprolol, lisinopril and statin. (4) Chronic systolic heart failure: Stable Continue current managament (5) Aortic stenosis, moderate: History of moderate with bicuspid aortic valve. Hemodynamically stable. (6) HTN (hypertension): BP stable (7) Right lower lobe pneumonia: Elevated WBC Was on Vanco and Invanz that was changed to Levaquin ID consulted recommended to d/c abx WBC continues to elevate Blood cx no growth (8) Lung mass: Declined bronchoscopy (9) COPD (chronic obstructive pulmonary disease): chronic, no active wheezing, oxygenating well on room air. 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 Off clopidogrel. Now with atrial flutter. Off IV heparin; long-term Warfarin, INR 3.3 sec to Levaquin Continue aspirin. (11) BPH (benign prostatic hyperplasia): BPH with urinary retention followed by [facility]. TURP considered, but postponed in light of recent stroke. Continue Morales catheter. (12) Leg ulcer: Chronic ulcer right leg-pt would not let me evaluate this tonight. Wound Care Nursing. (13) Diarrhea: Resolved (14) DANITA (acute kidney injury): Monitor creatinine (15) DVT prophylaxis: On coumadin with INR 3.4 Will resume coumadin tomorrow CODE STATUS DNR Dispo:Cardiology recommendations and workup/clincal improvement related to lung mass Probable return to [facility] if functional status allows. Family Medicine follow-up with Dr. Salcido. Subjective Pt was seen and examined Lying in bed with no distress Pt said that he feels weak He said that he feels achy all over his body Denies any chest pain, palpitation, dizziness and fever Physical Exam Vital Signs (Past 24 Hours): Last Vital Signs Temp 36.5 C 02/05/19 11:30 Pulse 67 02/05/19 11:30 Resp 18 02/05/19 11:30 BP 118/51 L 02/05/19 11:30 Pulse Ox 98 02/05/19 11:30 Physical Exam: General- No acute distress Head- atraumatic Eyes- PERRL, EOMI, ENT- oropharynx clear Neck- supple, no JVD Lungs- clear to auscultation Heart- regular rhythm; no murmur Abdomen- normal bowel sounds, soft, nontender Extremities- no calf tenderness Neuro- alert, oriented, PERRL, EOMI; no facial palsy Skin- warm & dry (1) Right lower lobe pneumonia Pneumonia type: due to unspecified organism Qualified Code(s): J18.1 - Lobar pneumonia, unspecified organism (2) HTN (hypertension) Hypertension type: essential hypertension Qualified Code(s): I10 - Essential (primary) hypertension
[2019-02-05] MEDS: TAMSULOSIN HCL 0.4 MG CAP PO SCH (20:25)
[2019-02-05] MEDS: ATORVASTATIN 40 MG TAB PO SCH (20:25)
[2019-02-06] MEDS: CHOLECALCIFEROL 1,000 UNITS TAB PO SCH (08:09)
[2019-02-06] MEDS: ESCITALOPRAM OXALATE 10 MG TAB PO SCH (08:09)
[2019-02-06] MEDS: DORZOLAMIDE/TIMOLOL 22.3/6.8MG/ML 10 ML BTL OPL SCH ×2 (08:10→20:47)
[2019-02-06] MEDS: BRIMONIDINE TARTRATE-P 0.15% 5 ML BTL OP SCH ×3 (08:10→20:47)
[2019-02-06] MEDS: ASPIRIN 81 MG ECTAB PO SCH (08:10)
[2019-02-06] MEDS: FINASTERIDE 5 MG TAB PO SCH (08:10)
[2019-02-06] MEDS: FUROSEMIDE 20 MG TAB PO SCH (08:10)
[2019-02-06] MEDS: CEROVITE ADV FORMULA TAB PO SCH ×2 (08:10→20:48)
[2019-02-06 08:39] LABS: Hemoglobin 10.2 g/dL (14.0-18.0); Mean Corpuscular Hgb Conc 30.9 g/dL (32-36); Mean Corpuscular Volume 88.9 fL (80-100); Platelet Count 288 K/uL (130-400); RDW Coefficient of Variation 15.3 % (11.5-14.5); RDW Standard Deviation 48.9 fL (36.4-46.3); Red Blood Count 3.71 M/uL (4.7-6.1); White Blood Count 15.72 K/uL (4.8-10.8)
[2019-02-06] MEDS: ACETAMINOPHEN 500 MG TAB PO PRN (09:49)
[2019-02-06 10:30] LABS: Prothrombin Time 35.6 Seconds (9.0-12.0)
[2019-02-06 10:40] LABS: INR 3.8 (0.9-1.1)
[2019-02-06] MEDS: METOPROLOL TARTRATE 25 MG TAB PO SCH ×2 (11:23→16:14)
--- NOTE | 2019-02-06 20:12 | Hospitalist Progress Note ---
Date of Service February 06, 2019 Assessment & Plan (1) Leukocytosis: WBC dropped to 15K today Possible due to reactive from the lung mass vs PNA CXR showed Bibasilar densities, right greater than left, have also progressed Afebrile and normal procalcitonin Was on abx that was d/c ID on board Continue monitor (2) Atrial flutter with rapid ventricular response: Rate control on metoprolol Continue Warfarin, INR 3.8 today Continue to hold coumadin Continue monitor PT/INR will decrease metoprolol due to bradycardia (3) CAD (coronary artery disease): h/o CABG, denies any chest pain. Continue ASA, Metoprolol, lisinopril and statin. (4) Chronic systolic heart failure: Stable Continue current managament (5) Aortic stenosis, moderate: History of moderate with bicuspid aortic valve. Hemodynamically stable. (6) HTN (hypertension): BP stable (7) Right lower lobe pneumonia: Elevated WBC Was on Vanco and Invanz that was changed to Levaquin ID consulted recommended to d/c abx WBC continues to elevate Blood cx no growth (8) Lung mass: Declined bronchoscopy (9) COPD (chronic obstructive pulmonary disease): chronic, no active wheezing, oxygenating well on room air. 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 Off clopidogrel. Now with atrial flutter. Off IV heparin; long-term Warfarin, INR 3.3 sec to Levaquin Continue aspirin. (11) BPH (benign prostatic hyperplasia): BPH with urinary retention followed by [facility]. TURP considered, but postponed in light of recent stroke. Continue Morales catheter. (12) Leg ulcer: Chronic ulcer right leg-pt would not let me evaluate this tonight. Wound Care Nursing. (13) Diarrhea: Resolved (14) DANITA (acute kidney injury): Monitor creatinine (15) DVT prophylaxis: On coumadin with INR 3.8 Will resume coumadin tomorrow CODE STATUS DNR Dispo:Cardiology recommendations and workup/clincal improvement related to lung mass Probable return to [facility] if functional status allows. Family Medicine follow-up with Dr. Salcido. Subjective Pt was seen and examined Lying in bed with no distress Feeling much better today Denies any chest pain, palpitation, and fever Physical Exam Vital Signs (Past 24 Hours): Last Vital Signs Temp 36.4 C L 02/06/19 19:37 Pulse 56 L 02/06/19 19:37 Resp 16 02/06/19 19:37 BP 149/59 H 02/06/19 19:37 Pulse Ox 95 02/06/19 19:37 Physical Exam: General- No acute distress Head- atraumatic Eyes- PERRL, EOMI, ENT- oropharynx clear Neck- supple, no JVD Lungs- clear to auscultation Heart- Bradycardia Abdomen- normal bowel sounds, soft, nontender Extremities- no calf tenderness Neuro- alert, oriented, PERRL, EOMI; no facial palsy Skin- warm & dry (1) Right lower lobe pneumonia Pneumonia type: due to unspecified organism Qualified Code(s): J18.1 - Lobar pneumonia, unspecified organism (2) HTN (hypertension) Hypertension type: essential hypertension Qualified Code(s): I10 - Essential (primary) hypertension
[2019-02-06] MEDS: ATORVASTATIN 40 MG TAB PO SCH (20:48)
[2019-02-06] MEDS: TAMSULOSIN HCL 0.4 MG CAP PO SCH (20:48)
[2019-02-07 06:09] LABS: Hematocrit (blood only) 33.8 % (42-52); Hemoglobin 10.5 g/dL (14.0-18.0); Mean Corpuscular Hgb Conc 31.1 g/dL (32-36); Mean Corpuscular Volume 88.5 fL (80-100); Mean Platelet Volume 10.5 fL (7.4-10.4); Platelet Count 272 K/uL (130-400); RDW Coefficient of Variation 15.3 % (11.5-14.5); RDW Standard Deviation 48.5 fL (36.4-46.3); Red Blood Count 3.82 M/uL (4.7-6.1); White Blood Count 17.17 K/uL (4.8-10.8)
[2019-02-07 06:25] LABS: INR 2.6 (0.9-1.1); Prothrombin Time 24.9 Seconds (9.0-12.0)
[2019-02-07] MEDS: METOPROLOL TARTRATE 25 MG TAB PO SCH ×2 (08:35→18:42)
[2019-02-07] MEDS: ESCITALOPRAM OXALATE 10 MG TAB PO SCH (08:36)
[2019-02-07] MEDS: CHOLECALCIFEROL 1,000 UNITS TAB PO SCH (08:36)
[2019-02-07] MEDS: CEROVITE ADV FORMULA TAB PO SCH ×2 (08:36→20:30)
[2019-02-07] MEDS: FINASTERIDE 5 MG TAB PO SCH (08:37)
[2019-02-07] MEDS: ASPIRIN 81 MG ECTAB PO SCH (08:37)
[2019-02-07] MEDS: FUROSEMIDE 20 MG TAB PO SCH (08:37)
[2019-02-07] MEDS: BRIMONIDINE TARTRATE-P 0.15% 5 ML BTL OP SCH ×3 (08:38→20:30)
[2019-02-07] MEDS: DORZOLAMIDE/TIMOLOL 22.3/6.8MG/ML 10 ML BTL OPL SCH ×2 (08:38→20:31)
[2019-02-07 12:56] LABS: BUN Creatinine Ratio 31.5 (10-20); Calcium 7.8 mg/dl (8.5-10.1); Creatinine Clr Calc Pharmacy 61.6 ml/min; Est GFR (African American) 94.8; Est GFR (Non-African American) 81.8; Magnesium 2.3 mg/dl (1.8-2.4); Potassium 3.3 mmol/L (3.5-5.1)
--- NOTE | 2019-02-07 19:38 | Hospitalist Progress Note ---
Date of Service February 07, 2019 Assessment & Plan (1) Leukocytosis: WBC increased to 17K today Possible due to reactive from the lung mass vs PNA CXR showed Bibasilar densities, right greater than left, have also progressed Afebrile and normal procalcitonin Was on abx that was d/c ID on board Continue monitor (2) Atrial flutter with rapid ventricular response: Rate control on metoprolol Continue Warfarin, INR 2.6 today Continue to hold coumadin Continue monitor PT/INR will decrease metoprolol due to bradycardia (3) CAD (coronary artery disease): h/o CABG, denies any chest pain. Continue ASA, Metoprolol, lisinopril and statin. (4) Chronic systolic heart failure: Stable Continue current managament (5) Aortic stenosis, moderate: History of moderate with bicuspid aortic valve. Hemodynamically stable. (6) HTN (hypertension): BP stable (7) Right lower lobe pneumonia: Elevated WBC Was on Vanco and Invanz that was changed to Levaquin ID consulted recommended to d/c abx WBC continues to elevate Blood cx no growth (8) Lung mass: Declined bronchoscopy (9) COPD (chronic obstructive pulmonary disease): chronic, no active wheezing, oxygenating well on room air. 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 Off clopidogrel. Now with atrial flutter. Off IV heparin; long-term Warfarin, INR 2.6 today Resume coumadin Continue aspirin. (11) BPH (benign prostatic hyperplasia): BPH with urinary retention followed by [facility]. TURP considered, but postponed in light of recent stroke. Continue Morales catheter. (12) Leg ulcer: Chronic ulcer right leg-pt would not let me evaluate this tonight. Wound Care Nursing. (13) Diarrhea: Resolved (14) DANITA (acute kidney injury): Monitor creatinine (15) DVT prophylaxis: On coumadin with INR 3.8 resumed coumadin CODE STATUS DNR Dispo:Cardiology recommendations and workup/clincal improvement related to lung mass Probable return to [facility] if functional status allows. Family Medicine follow-up with Dr. Salcido. Subjective Pt was seen and examined Lying in bed with no distress Denies any chest pain, palpitation and SOB Physical Exam Vital Signs (Past 24 Hours): Last Vital Signs Temp 36.6 C 02/07/19 15:50 Pulse 54 L 02/07/19 15:50 Resp 16 02/07/19 15:50 BP 154/70 H 02/07/19 15:50 Pulse Ox 93 02/07/19 15:50 Physical Exam: General- No acute distress Head- atraumatic Eyes- PERRL, EOMI, ENT- oropharynx clear Neck- supple, no JVD Lungs- Diminished BS Heart- Regular Abdomen- normal bowel sounds, soft, nontender Extremities- no calf tenderness Neuro- alert, oriented, PERRL, EOMI; no facial palsy Skin- warm & dry (1) Right lower lobe pneumonia Pneumonia type: due to unspecified organism Qualified Code(s): J18.1 - Lobar pneumonia, unspecified organism (2) HTN (hypertension) Hypertension type: essential hypertension Qualified Code(s): I10 - Essential (primary) hypertension
[2019-02-07] MEDS: ATORVASTATIN 40 MG TAB PO SCH (20:30)
[2019-02-07] MEDS: TAMSULOSIN HCL 0.4 MG CAP PO SCH (20:30)
[2019-02-07] MEDS ORDERED: ALBUT/IPRATROP 3MG/0.5MG NEB 3 ML VIAL NEB STA (23:48)
[2019-02-08 00:19] LABS: HCO3 ABG 28 mmol/L (19-24); Oxygen Saturation ABG 91.1 % (90-95); PCO2 ABG 43 mmHg (35-46); PO2 ABG 64 mm/Hg (80-95); pH ABG 7.44 (7.35-7.45)
[2019-02-08 00:20] LABS: Allen Test Pos (Pos)
[2019-02-08 00:39] LABS: INR 2.2 (0.9-1.1); Prothrombin Time 21.6 Seconds (9.0-12.0)
[2019-02-08 00:45] LABS: BUN Creatinine Ratio 29.6 (10-20); Calcium 8.1 mg/dl (8.5-10.1); Creatinine Clr Calc Pharmacy 63.9 ml/min; Est GFR (African American) 96.2; Magnesium 2.3 mg/dl (1.8-2.4); Potassium 3.4 mmol/L (3.5-5.1)
--- NOTE | 2019-02-08 00:52 | XRay Report ---
SINGLE VIEW CHEST CLINICAL HISTORY: Dyspnea. FINDINGS: 2 AP, portable, upright chest radiographs are compared to study dated 02/03/2019. The examin ation is degraded by portable technique and patient rotation. The patient is status post midline miguel rnotomy. The heart is enlarged and there is atherosclerotic calcification of the thoracic aorta. Ther e is pulmonary vascular congestion with mild interstitial edema. Emphysema and chronic interstitial t hickening are similar to previous. There is dense airspace consolidation at the right lung base. Smal l pleural effusions are identified. No pneumothorax is seen. The skeletal structures are osteopenic. The bony thorax is grossly intact. Advanced arthritic change is seen in the shoulders. IMPRESSION: 1. Cardiomegaly with evidence of congestive failure. 2. Small pleural effusions. 3. There is dense airspace consolidation at the right lung base concerning for superimposed pneumonia . Clinical correlation will be required. Radiographic follow-up to resolution is recommended. Electronically signed by: Jarad Schmidt M.D. 02/08/2019 12:49 AM
--- NOTE | 2019-02-08 00:57 | Hospitalist Progress Note ---
Date of Service February 08, 2019 Subjective Made aware by RN of patient hypoxemia. O2 sats 80s on room air. Patient sounding moist and gurgly as per RN. Chest x-ray as per my interpretation: Congestion; infiltrate right AP Acute hypoxemic resp failure Multifactorial : pulmonary congestion HAP possible aspiration given notable gurgling, possible sepsis Supplemental O2, baseline ABG IV Lasix Nebs. steroid for 1 dose for bronchospasm causing hypoxemia IV Ertapenem Will relay to AM provider. Physical Exam Vital Signs (Past 24 Hours): Last Vital Signs Temp 36.4 C L 02/08/19 00:00 Pulse 69 02/08/19 00:08 Resp 20 02/08/19 00:08 BP 168/77 H 02/08/19 00:00 Pulse Ox 92 02/08/19 00:08
[2019-02-08] MEDS ORDERED: FUROSEMIDE 40 MG in SYRINGE 0 ML IV ONE (01:00)
[2019-02-08] MEDS ORDERED: methylPREDNISolone 40 MG in SYRINGE 0 ML IV ONE (01:00)
[2019-02-08] MEDS ORDERED: ERTAPENEM CONSULT ACTIVE PRN (01:04)
[2019-02-08] MEDS ORDERED: POTASSIUM CHLORIDE 10 MEQ TABCR PO ONE (01:05)
[2019-02-08] MEDS: ERTAPENEM SODIUM 1,000 MG in SODIUM CHLORIDE 0.9% 50 ML IV SCH (01:26)
[2019-02-08] MEDS: POTASSIUM CHLORIDE / WTR 10 MEQ/100 ML PLCT IV SCH ×4 (01:56→05:12)
[2019-02-08] MEDS: LEVALBUTEROL 1.25MG/0.5ML NEB INH SCH ×4 (02:14→19:35)
[2019-02-08] MEDS: IPRATROPIUM BROMIDE NEB SOLN 0.02% 2.5 ML VIAL INH SCH ×4 (02:15→19:35)
[2019-02-08] MEDS ORDERED: XOPENEX/ATROVENT 1.25mg/0.5MG NEB COMBO NEB SCH (04:00)
[2019-02-08 09:34] LABS: Hematocrit (blood only) 32.5 % (42-52); Hemoglobin 10.5 g/dL (14.0-18.0); Mean Corpuscular Hgb Conc 32.3 g/dL (32-36); Mean Corpuscular Volume 86.7 fL (80-100); Platelet Count 260 K/uL (130-400); RDW Coefficient of Variation 15.3 % (11.5-14.5); RDW Standard Deviation 47.8 fL (36.4-46.3); Red Blood Count 3.75 M/uL (4.7-6.1); White Blood Count 22.43 K/uL (4.8-10.8)
[2019-02-08] MEDS: BRIMONIDINE TARTRATE-P 0.15% 5 ML BTL OP SCH ×3 (12:25→21:34)
[2019-02-08] MEDS: ESCITALOPRAM OXALATE 10 MG TAB PO SCH (12:35)
[2019-02-08] MEDS: ASPIRIN 81 MG ECTAB PO SCH (12:35)
[2019-02-08] MEDS: METOPROLOL TARTRATE 25 MG TAB PO SCH ×2 (12:35→17:32)
[2019-02-08] MEDS: CEROVITE ADV FORMULA TAB PO SCH ×2 (12:35→21:35)
[2019-02-08] MEDS: DORZOLAMIDE/TIMOLOL 22.3/6.8MG/ML 10 ML BTL OPL SCH ×2 (12:35→21:35)
[2019-02-08] MEDS: FINASTERIDE 5 MG TAB PO SCH (12:36)
[2019-02-08] MEDS: CHOLECALCIFEROL 1,000 UNITS TAB PO SCH (12:36)
[2019-02-08] MEDS: WARFARIN SOD 2 MG TAB PO SCH (17:32)
--- NOTE | 2019-02-08 18:53 | Hospitalist Progress Note ---
Date of Service February 08, 2019 Assessment & Plan (1) Pneumonia: (2) Leukocytosis: Possible related to aspiration pneumonia CXR showed dense airspace consolidation at the right lung base concerning for superimposed pneumonia WBC increased to 22K today Afebrile and normal procalcitonin Starting on Ertapenem IV ID on board Continue monitor CBC (3) Acute respiratory failure: Possible related to PNA VS CHF CXR showed Cardiomegaly with evidence of congestive failure and dense airspace consolidation at the right lung base Lasix 20mg IV given Continue IV abx repeat CXR in am Continue oxygen supplement and neb treatment (4) Atrial flutter with rapid ventricular response: Rate control on metoprolol Continue Warfarin, INR 2.6 today Continue to hold coumadin Continue monitor PT/INR will decrease metoprolol due to bradycardia (5) CAD (coronary artery disease): h/o CABG, denies any chest pain. Continue ASA, Metoprolol, lisinopril and statin. (6) Chronic systolic heart failure: Stable Continue current managament (7) Aortic stenosis, moderate: History of moderate with bicuspid aortic valve. Hemodynamically stable. (8) HTN (hypertension): BP stable (9) Right lower lobe pneumonia: Elevated WBC Was on Vanco and Invanz that was changed to Levaquin ID consulted recommended to d/c abx WBC continues to elevate Blood cx no growth (10) Lung mass: Declined bronchoscopy (11) COPD (chronic obstructive pulmonary disease): chronic, no active wheezing, oxygenating well on room air. Stable (12) Stroke: Ischemic stroke September 2018, thought to be embolic in nature. Off clopidogrel. Now with atrial flutter. Off IV heparin; long-term Warfarin, INR 2.6 today Resume coumadin Continue aspirin. (13) BPH (benign prostatic hyperplasia): BPH with urinary retention followed by [facility] [place] [facility]. TURP considered, but postponed in light of recent stroke. Continue Morales catheter. (14) Leg ulcer: Chronic ulcer right leg-pt would not let me evaluate this tonight. Wound Care Nursing. (15) Bradycardia: HR dropped in the 30's Metoprolol on hold Consider cardiology consult if worsening Continue monitor in tele (16) Diarrhea: Resolved (17) DANITA (acute kidney injury): Monitor creatinine Hypokalemia K replaced Monitor BMP (18) DVT prophylaxis: On coumadin with INR 2.2 continue coumadin CODE STATUS DNR Dispo:Cardiology recommendations and workup/clincal improvement related to lung mass Probable return to [facility] if functional status allows. Family Medicine follow-up with Dr. Salcido. Subjective Pt was seen and examined Lying in bed with respiratory distress He said that his breathing not good today He did not eat today He is drowsy today Physical Exam Vital Signs (Past 24 Hours): Last Vital Signs Temp 36.6 C 02/08/19 15:19 Pulse 52 L 02/08/19 18:24 Resp 15 02/08/19 15:19 BP 129/60 02/08/19 15:19 Pulse Ox 96 02/08/19 15:19 Physical Exam: General- No acute distress Head- atraumatic Eyes- PERRL, EOMI, ENT- oropharynx clear Neck- supple, no JVD Lungs- coarse BS Heart- Bradycardia Abdomen- normal bowel sounds, soft, nontender Extremities- no calf tenderness Neuro- alert, oriented, PERRL, EOMI; no facial palsy Skin- warm & dry (1) Right lower lobe pneumonia Pneumonia type: due to unspecified organism Qualified Code(s): J18.1 - Lobar pneumonia, unspecified organism (2) HTN (hypertension) Hypertension type: essential hypertension Qualified Code(s): I10 - Essential (primary) hypertension
[2019-02-08] MEDS ORDERED: FUROSEMIDE 20 MG in SYRINGE 0 ML IV ONE (19:30)
[2019-02-08 20:54] LABS: Potassium 3.6 mmol/L (3.5-5.1)
[2019-02-08 20:56] LABS: Magnesium 2.3 mg/dl (1.8-2.4)
[2019-02-09] MEDS: ERTAPENEM SODIUM 1,000 MG in SODIUM CHLORIDE 0.9% 50 ML IV SCH (00:30)
[2019-02-09] MEDS: IPRATROPIUM BROMIDE NEB SOLN 0.02% 2.5 ML VIAL INH SCH ×4 (01:49→20:17)
[2019-02-09] MEDS: LEVALBUTEROL 1.25MG/0.5ML NEB INH SCH ×4 (01:49→20:17)
[2019-02-09 06:41] LABS: Hemoglobin 9.6 g/dL (14.0-18.0); Mean Corpuscular Volume 89.1 fL (80-100); Mean Platelet Volume 10.9 fL (7.4-10.4); Platelet Count 255 K/uL (130-400); RDW Coefficient of Variation 15.5 % (11.5-14.5); RDW Standard Deviation 49.6 fL (36.4-46.3); Red Blood Count 3.48 M/uL (4.7-6.1); White Blood Count 14.38 K/uL (4.8-10.8)
--- NOTE | 2019-02-09 07:39 | XRay Report ---
XR chest 1V portable CLINICAL HISTORY: Shortness of breath COMPARISON STUDY: 02/08/2019 FINDINGS: There are postsurgical changes of a midline sternotomy. The heart remains enlarged. There i s improving congestive failure/fluid overload. There is persistent dense right lower lobe pulmonary c onsolidation. Small pleural effusions are suspected.[ There is a focus of increased density within th e right infrahilar region. This likely corresponds to the previously described right infrahilar mass. . IMPRESSION: 1. Heart is mildly with improving congestive failure/fluid overload 2. Persistent dense right lower lobe pulmonary consolidation 3. Suspected small pleural effusions 4. Suspected right perihilar mass. Electronically signed by: Fran La M.D. 02/09/2019 7:38 AM
[2019-02-09] MEDS: ESCITALOPRAM OXALATE 10 MG TAB PO SCH (08:14)
[2019-02-09] MEDS: CEROVITE ADV FORMULA TAB PO SCH ×2 (08:14→20:36)
[2019-02-09] MEDS: FUROSEMIDE 20 MG TAB PO SCH (08:15)
[2019-02-09] MEDS: ASPIRIN 81 MG ECTAB PO SCH (08:15)
[2019-02-09] MEDS: BRIMONIDINE TARTRATE-P 0.15% 5 ML BTL OP SCH ×3 (08:16→20:36)
[2019-02-09] MEDS: DORZOLAMIDE/TIMOLOL 22.3/6.8MG/ML 10 ML BTL OPL SCH ×2 (08:16→20:36)
[2019-02-09 15:54] LABS: BUN Creatinine Ratio 28.6 (10-20); Calcium 7.7 mg/dl (8.5-10.1); Creatinine Clr Calc Pharmacy 58.7 ml/min; Est GFR (African American) 92.9; Est GFR (Non-African American) 80.2; Potassium 3.5 mmol/L (3.5-5.1)
[2019-02-09] MEDS: WARFARIN SOD 2 MG TAB PO SCH (17:31)
--- NOTE | 2019-02-09 19:32 | Hospitalist Progress Note ---
Date of Service February 09, 2019 Assessment & Plan (1) Pneumonia: (2) Leukocytosis: Possible related to aspiration pneumonia CXR showed dense airspace consolidation at the right lung base concerning for superimposed pneumonia WBC trending down Afebrile and normal procalcitonin Starting on Ertapenem IV ID on board Continue monitor CBC (3) Acute respiratory failure: Possible related to PNA VS CHF CXR showed Cardiomegaly with evidence of congestive failure and dense airspace consolidation at the right lung base Continue lasix Oral daily Will give and additional 20mg IVx1 later today Continue IV abx Will repeat CXR in am Continue oxygen supplement and neb treatment Monitor BMP (4) Atrial flutter with rapid ventricular response: Rate control on metoprolol Continue Warfarin, INR 2.2 today Continue coumadin Continue monitor PT/INR will decrease metoprolol due to bradycardia Possible tachybrady syndrome will discuss with cardio (5) CAD (coronary artery disease): h/o CABG, denies any chest pain. Continue ASA, lisinopril and statin. Decreased metorprolol (6) Chronic systolic heart failure: CXR showed Heart is mildly with improving congestive failure/fluid overload Will give Lasix 20mg IV x1 (7) Aortic stenosis, moderate: History of moderate with bicuspid aortic valve. Hemodynamically stable. (8) HTN (hypertension): BP stable (9) Lung mass: Declined bronchoscopy (10) COPD (chronic obstructive pulmonary disease): chronic, no active wheezing, oxygenating well on room air. 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 Off clopidogrel. Now with atrial flutter. Off IV heparin; long-term Warfarin, INR 2.2 today Resume coumadin Continue aspirin. (12) BPH (benign prostatic hyperplasia): BPH with urinary retention followed by [facility] [place] [facility]. TURP considered, but postponed in light of recent stroke. Continue Morales catheter. (13) Leg ulcer: Chronic ulcer right leg-pt would not let me evaluate this tonight. Wound Care Nursing. (14) Bradycardia: Possible tachybrady syndrome HR dropped in the 30's HR rate stable Will resume metoprolo at low dose Continue monitor in tele Will discuss with cardio (15) Diarrhea: Resolved (16) DANITA (acute kidney injury): Monitor creatinine Hypokalemia K stable Monitor BMP (17) DVT prophylaxis: On coumadin with INR 2.2 continue coumadin CODE STATUS DNR Dispo:Cardiology recommendations and workup/clincal improvement related to lung mass Probable return to [facility] if functional status allows. Family Medicine follow-up with Dr. Salcido. Subjective Pt was seen and examined Lying in bed with no distress Pt is more awake today He was able to take his medication today yesterday he had a few beat VT HR has been improved He said that he does not have any family member Denies any chest pain, palpitation Physical Exam Vital Signs (Past 24 Hours): Last Vital Signs Temp 36.3 C L 02/09/19 16:00 Pulse 64 02/09/19 16:00 Resp 16 02/09/19 16:00 BP 112/55 L 02/09/19 16:00 Pulse Ox 95 02/09/19 16:00 Physical Exam: General- No acute distress Head- atraumatic Eyes- PERRL, EOMI, ENT- oropharynx clear Neck- supple, no JVD Lungs- Diminished BS Heart- regular Abdomen- normal bowel sounds, soft, nontender Extremities- no calf tenderness Neuro- alert, oriented, PERRL, EOMI; no facial palsy Skin- warm & dry (1) HTN (hypertension) Hypertension type: essential hypertension Qualified Code(s): I10 - Essential (primary) hypertension
[2019-02-09] MEDS ORDERED: FUROSEMIDE 20 MG in SYRINGE 0 ML IV ONE (20:15)
[2019-02-10] MEDS: ERTAPENEM SODIUM 1,000 MG in SODIUM CHLORIDE 0.9% 50 ML IV SCH ×2 (01:02→23:20)
[2019-02-10] MEDS: LEVALBUTEROL 1.25MG/0.5ML NEB INH SCH ×4 (02:10→19:50)
[2019-02-10] MEDS: IPRATROPIUM BROMIDE NEB SOLN 0.02% 2.5 ML VIAL INH SCH ×4 (02:10→19:50)
[2019-02-10 07:25] LABS: Hemoglobin 9.8 g/dL (14.0-18.0); Mean Corpuscular Hgb Conc 30.6 g/dL (32-36); Platelet Count 250 K/uL (130-400); RDW Coefficient of Variation 15.4 % (11.5-14.5); Red Blood Count 3.68 M/uL (4.7-6.1); White Blood Count 15.29 K/uL (4.8-10.8)
[2019-02-10 07:35] LABS: INR 1.7 (0.9-1.1); Prothrombin Time 16.7 Seconds (9.0-12.0)
[2019-02-10 07:59] LABS: BUN Creatinine Ratio 29.5 (10-20); Calcium 7.8 mg/dl (8.5-10.1); Creatinine Clr Calc Pharmacy 58.7 ml/min; Est GFR (African American) 92.9; Est GFR (Non-African American) 80.2; Potassium 3.3 mmol/L (3.5-5.1)
[2019-02-10] MEDS: ESCITALOPRAM OXALATE 10 MG TAB PO SCH (08:38)
[2019-02-10] MEDS: FUROSEMIDE 20 MG TAB PO SCH (08:38)
[2019-02-10] MEDS: ASPIRIN 81 MG ECTAB PO SCH (08:38)
[2019-02-10] MEDS: CEROVITE ADV FORMULA TAB PO SCH ×2 (08:38→20:53)
[2019-02-10] MEDS: DORZOLAMIDE/TIMOLOL 22.3/6.8MG/ML 10 ML BTL OPL SCH ×2 (08:39→20:53)
[2019-02-10] MEDS: BRIMONIDINE TARTRATE-P 0.15% 5 ML BTL OP SCH ×3 (08:39→20:53)
[2019-02-10] MEDS ORDERED: POTASSIUM CHLORIDE 20 MEQ TABCR PO STA (09:46)
[2019-02-10] MEDS: WARFARIN SOD 2 MG TAB PO SCH (18:11)
[2019-02-10] MEDS: WARFARIN SOD 3 MG TAB PO SCH (18:49)
--- NOTE | 2019-02-10 20:30 | Hospitalist Progress Note ---
Date of Service February 10, 2019 Assessment & Plan (1) Pneumonia: (2) Leukocytosis: Possible related to aspiration pneumonia CXR showed dense airspace consolidation at the right lung base concerning for superimposed pneumonia WBC trending down Afebrile and normal procalcitonin Starting on Ertapenem IV ID on board Continue monitor CBC (3) Acute respiratory failure: Possible related to PNA VS CHF CXR showed Cardiomegaly with evidence of congestive failure and dense airspace consolidation at the right lung base Continue lasix Oral daily Will give and additional 20mg IVx1 later today Continue IV abx Will repeat CXR in am Continue oxygen supplement and neb treatment Monitor BMP (4) Atrial flutter with rapid ventricular response: Rate control on metoprolol Continue Warfarin, INR 1.7 today Continue coumadin Continue monitor PT/INR Metoprolol decreased to 12.5mg due to bradycardia Possible tachybrady syndrome will discuss with cardio if bradycardia persists (5) CAD (coronary artery disease): h/o CABG, denies any chest pain. Continue ASA, lisinopril and statin. Decreased metorprolol (6) Chronic systolic heart failure: CXR showed Heart is mildly with improving congestive failure/fluid overload Continue lasix daily Clinically improves (7) Aortic stenosis, moderate: History of moderate with bicuspid aortic valve. Hemodynamically stable. (8) HTN (hypertension): BP stable (9) Lung mass: Declined bronchoscopy (10) COPD (chronic obstructive pulmonary disease): chronic, no active wheezing, oxygenating well on room air. 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 Off clopidogrel. Now with atrial flutter. long-term Warfarin, INR 1.7 today coumadin increased to 3mg Continue aspirin. (12) BPH (benign prostatic hyperplasia): BPH with urinary retention followed by [facility] [place] [facility]. TURP considered, but postponed in light of recent stroke. Continue Morales catheter. (13) Leg ulcer: Chronic ulcer right leg-pt would not let me evaluate this tonight. Wound Care Nursing. (14) Bradycardia: Possible tachybrady syndrome HR dropped in the 30's HR rate stable metoprolo decreased to 12.5 mg Continue monitor in tele Stable (15) Diarrhea: Resolved (16) DANITA (acute kidney injury): Monitor creatinine Hypokalemia K Replaced Monitor BMP (17) DVT prophylaxis: On coumadin with INR 1.7 continue coumadin CODE STATUS DNR Dispo:Cardiology recommendations and workup/clincal improvement related to lung mass Probable return to [facility] if functional status allows. Family Medicine follow-up with Dr. Salcido. Subjective Pt was seen and examined Lying in bed with no distress Pt feels much better today He said that his breathing a little better He ate today denies any chest pain, palpitation and fever Physical Exam Vital Signs (Past 24 Hours): Last Vital Signs Temp 36.6 C 02/10/19 19:26 Pulse 62 02/10/19 19:51 Resp 16 02/10/19 19:51 BP 145/70 H 02/10/19 19:26 Pulse Ox 91 02/10/19 19:51 Physical Exam: General- No acute distress Head- atraumatic Eyes- PERRL, EOMI, ENT- oropharynx clear Neck- supple, no JVD Lungs- coarse BS Heart- Bradycardia Abdomen- normal bowel sounds, soft, nontender Extremities- no calf tenderness Neuro- alert, oriented, PERRL, EOMI; no facial palsy Skin- warm & dry (1) HTN (hypertension) Hypertension type: essential hypertension Qualified Code(s): I10 - Essential (primary) hypertension
[2019-02-10] MEDS: ENOXAPARIN INJ 40 MG/0.4 ML SYR SQ SCH (20:53)
[2019-02-11] MEDS: IPRATROPIUM BROMIDE NEB SOLN 0.02% 2.5 ML VIAL INH SCH ×4 (02:09→19:55)
[2019-02-11] MEDS: LEVALBUTEROL 1.25MG/0.5ML NEB INH SCH ×4 (02:09→19:56)
[2019-02-11 06:37] LABS: Hematocrit (blood only) 31.3 % (42-52); Hemoglobin 9.8 g/dL (14.0-18.0); Mean Corpuscular Hgb Conc 31.3 g/dL (32-36); Mean Corpuscular Volume 86.5 fL (80-100); Platelet Count 243 K/uL (130-400); RDW Coefficient of Variation 15.3 % (11.5-14.5); RDW Standard Deviation 48.5 fL (36.4-46.3); Red Blood Count 3.62 M/uL (4.7-6.1); White Blood Count 11.94 K/uL (4.8-10.8)
[2019-02-11 06:44] LABS: INR 1.7 (0.9-1.1)
[2019-02-11 07:13] LABS: BUN Creatinine Ratio 27.1 (10-20); Calcium 7.6 mg/dl (8.5-10.1); Creatinine Clr Calc Pharmacy 58.7 ml/min; Est GFR (African American) 92.9; Est GFR (Non-African American) 80.2; Potassium 3.6 mmol/L (3.5-5.1)
[2019-02-11] MEDS: FUROSEMIDE 20 MG TAB PO SCH (07:58)
[2019-02-11] MEDS: ASPIRIN 81 MG ECTAB PO SCH (07:59)
[2019-02-11] MEDS: BRIMONIDINE TARTRATE-P 0.15% 5 ML BTL OP SCH ×3 (07:59→20:35)
[2019-02-11] MEDS: DORZOLAMIDE/TIMOLOL 22.3/6.8MG/ML 10 ML BTL OPL SCH ×2 (07:59→20:37)
[2019-02-11] MEDS: ESCITALOPRAM OXALATE 10 MG TAB PO SCH (08:52)
[2019-02-11] MEDS: CEROVITE ADV FORMULA TAB PO SCH ×2 (08:53→20:37)
[2019-02-11] MEDS: METOPROLOL TARTRATE 25 MG TAB PO SCH ×2 (10:09→20:38)
--- NOTE | 2019-02-11 11:18 | Hospitalist Progress Note ---
Date of Service February 11, 2019 Assessment & Plan (1) Pneumonia: (2) Leukocytosis: Possible related to aspiration pneumonia CXR showed dense airspace consolidation at the right lung base concerning for superimposed pneumonia WBC trending down to 11K Afebrile and normal procalcitonin On Ertapenem IV Will change abx to oral on discharge ID on board Continue monitor CBC (3) Acute respiratory failure: Possible related to PNA VS CHF CXR showed Cardiomegaly with evidence of congestive failure and dense airspace consolidation at the right lung base Continue lasix Oral daily Continue IV abx saturated well on RA Clinically improves (4) Atrial flutter with rapid ventricular response: Rate control on metoprolol Continue Warfarin, INR 1.7 today Continue coumadin Continue monitor PT/INR Metoprolol decreased to 12.5mg due to bradycardia Possible tachybrady syndrome will discuss with cardio if bradycardia persists (5) CAD (coronary artery disease): h/o CABG, denies any chest pain. Continue ASA, lisinopril and statin. Continue low dose metorprolol (6) Chronic systolic heart failure: CXR showed Heart is mildly with improving congestive failure/fluid overload Continue lasix daily Clinically improves (7) Aortic stenosis, moderate: History of moderate with bicuspid aortic valve. Hemodynamically stable. (8) HTN (hypertension): BP stable (9) Lung mass: Declined bronchoscopy (10) COPD (chronic obstructive pulmonary disease): chronic, no active wheezing, oxygenating well on room air. 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 Off clopidogrel. Now with atrial flutter. long-term Warfarin, INR 1.7 today coumadin increased to 3mg Continue aspirin. (12) BPH (benign prostatic hyperplasia): BPH with urinary retention [place] [facility] [place] TURP considered, but postponed in light of recent stroke. Continue Buenrostro catheter. (13) Leg ulcer: Chronic ulcer right leg-pt would not let me evaluate this tonight. Wound Care Nursing. (14) Bradycardia: Possible tachybrady syndrome HR dropped in the 30's HR rate stable metoprolo decreased to 12.5 mg Continue monitor in tele Stable (15) Diarrhea: Resolved (16) DANITA (acute kidney injury): Monitor creatinine Hypokalemia K stable Monitor BMP (17) DVT prophylaxis: On coumadin with INR 1.7 continue coumadin Lovenox subq until INR therapeuttic CODE STATUS DNR Dispo: Family Medicine follow-up with Dr. Salcido. Waiting for placement to discharge Continue buenrostro cath on discharge Subjective Pt was seen and examined Lying in bed with no distress Pt is feeling much better today He is on RA today and saturated well He said that he ate well this morning He said that his breathing feels much better denies any chest pain, palpitation and SOB Physical Exam Vital Signs (Past 24 Hours): Last Vital Signs Temp 36.2 C L 02/11/19 07:34 Pulse 59 L 02/11/19 07:34 Resp 16 02/11/19 07:34 BP 142/69 H 02/11/19 07:34 Pulse Ox 99 02/11/19 07:34 Physical Exam: General- No acute distress Head- atraumatic Eyes- PERRL, EOMI, ENT- oropharynx clear Neck- supple, no JVD Lungs- coarse BS Heart- regular Abdomen- normal bowel sounds, soft, nontender Extremities- no calf tenderness Neuro- alert, oriented, PERRL, EOMI; no facial palsy Skin- warm & dry (1) HTN (hypertension) Hypertension type: essential hypertension Qualified Code(s): I10 - Essential (primary) hypertension
[2019-02-11] MEDS ORDERED: BISACODYL 5 MG TABEC PO ONE (11:40)
[2019-02-11] MEDS: WARFARIN SOD 3 MG TAB PO SCH (16:53)
[2019-02-11] MEDS: ENOXAPARIN INJ 40 MG/0.4 ML SYR SQ SCH (20:37)
[2019-02-11] MEDS: TAMSULOSIN HCL 0.4 MG CAP PO SCH (20:37)
[2019-02-12] MEDS: ERTAPENEM SODIUM 1,000 MG in SODIUM CHLORIDE 0.9% 50 ML IV SCH (00:23)
[2019-02-12] MEDS: IPRATROPIUM BROMIDE NEB SOLN 0.02% 2.5 ML VIAL INH SCH ×2 (01:47→07:03)
[2019-02-12] MEDS: LEVALBUTEROL 1.25MG/0.5ML NEB INH SCH ×2 (01:47→07:03)
[2019-02-12 07:24] LABS: Creatinine Clr Calc Pharmacy 61.6 ml/min; Est GFR (African American) 94.8; Est GFR (Non-African American) 81.8
[2019-02-12] MEDS: METOPROLOL TARTRATE 25 MG TAB PO SCH (08:49)
[2019-02-12] MEDS: FUROSEMIDE 20 MG TAB PO SCH (08:50)
[2019-02-12] MEDS: ESCITALOPRAM OXALATE 10 MG TAB PO SCH (08:50)
[2019-02-12] MEDS: ASPIRIN 81 MG ECTAB PO SCH (08:50)
[2019-02-12] MEDS: FINASTERIDE 5 MG TAB PO SCH (08:51)
[2019-02-12] MEDS: DORZOLAMIDE/TIMOLOL 22.3/6.8MG/ML 10 ML BTL OPL SCH (08:51)
[2019-02-12] MEDS: BRIMONIDINE TARTRATE-P 0.15% 5 ML BTL OP SCH (08:51)
[2019-02-12] MEDS: CEROVITE ADV FORMULA TAB PO SCH (08:51)
[2019-02-12 10:28] LABS: INR 1.7 (0.9-1.1); Prothrombin Time 17.1 Seconds (9.0-12.0)
[2019-02-12 11:24] VITALS: TEMP 97.5; O2SAT 96
--- NOTE | 2019-02-12 11:48 | Hospitalist Progress Note ---
Date of Service February 12, 2019 Assessment & Plan (1) Pneumonia: (2) Leukocytosis: Possible related to aspiration pneumonia CXR showed dense airspace consolidation at the right lung base concerning for superimposed pneumonia WBC trending down to 11K Afebrile and normal procalcitonin On Ertapenem IV ay 5 Will change abx to oral doxycycline on discharge for 2 more days ID on board Continue monitor CBC (3) Acute respiratory failure: Possible related to PNA VS CHF CXR showed Cardiomegaly with evidence of congestive failure and dense airspace consolidation at the right lung base Continue lasix Oral daily, if he shows any side of overload additional lasix can be given prn saturated well on RA Clinically improves (4) Atrial flutter with rapid ventricular response: Rate control on metoprolol Continue Warfarin, INR 1.7 today Continue coumadin Continue monitor PT/INR Metoprolol decreased to 12.5mg due to bradycardia Heart rate has been stable on metoprolol 12.5 mg Follow up with cardiology Monitor PT/INR (5) CAD (coronary artery disease): h/o CABG, denies any chest pain. Continue ASA, lisinopril and statin. Continue low dose metorprolol (6) Chronic systolic heart failure: CXR showed Heart is mildly with improving congestive failure/fluid overload Continue lasix daily If shows any side of overload additional lasix can be given prn Clinically improves (7) Aortic stenosis, moderate: History of moderate with bicuspid aortic valve. Hemodynamically stable. (8) HTN (hypertension): BP stable (9) Lung mass: Declined bronchoscopy (10) COPD (chronic obstructive pulmonary disease): chronic, no active wheezing, oxygenating well on room air. 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 Off clopidogrel. Now with atrial flutter. long-term Warfarin, INR 1.7 today coumadin increased to 3.5mg Continue aspirin. (12) BPH (benign prostatic hyperplasia): BPH with urinary retention followed by [facility] [place] [facility]. TURP considered, but postponed in light of recent stroke. Continue Buenrostro catheter. (13) Leg ulcer: Chronic ulcer right leg-pt would not let me evaluate this tonight. Wound Care Nursing. (14) Bradycardia: Possible tachybrady syndrome HR dropped in the 30's HR rate stable since metoprolol decreased to 12.5mg Continue metoprolol decreased to 12.5 mg Continue monitor in tele Stable (15) Diarrhea: Resolved (16) DANITA (acute kidney injury): Monitor creatinine Hypokalemia K stable Monitor BMP (17) DVT prophylaxis: On coumadin with INR 1.7 Continue coumadin Lovenox subq until INR therapeuttic CODE STATUS DNR Dispo: Family Medicine follow-up with Dr. Salcido. Waiting for placement to discharge Continue buenrostro cath on discharge Subjective Pt was seen and examined Lying in bed with no distress Pt said that he is breathing is improves He has not been coughing much lately He saturated well on RA Denies any chest pain, palpitation, dizziness and SOB Physical Exam Vital Signs (Past 24 Hours): Last Vital Signs Temp 36.4 C L 02/12/19 11:23 Pulse 64 02/12/19 11:23 Resp 17 02/12/19 11:23 BP 132/54 L 02/12/19 11:23 Pulse Ox 96 02/12/19 11:23 Physical Exam: General- No acute distress Head- atraumatic Eyes- PERRL, EOMI, ENT- oropharynx clear Neck- supple, no JVD Lungs- Diminished BS Heart- no murmur Abdomen- normal bowel sounds, soft, nontender Extremities- no calf tenderness Neuro- alert, oriented, PERRL, EOMI; no facial palsy Skin- warm & dry (1) HTN (hypertension) Hypertension type: essential hypertension Qualified Code(s): I10 - Essential (primary) hypertension
[2019-02-12 12:38] VITALS: BP 154/78; PULSE 71
--- NOTE | 2019-02-12 23:30 | Discharge Summary ---
Date of Service February 12, 2019 Admission HPI Per Admitting Provider 83-year-old male followed by Dr. Salcido for Family Medicine. History of coronary artery disease, CHF, hypertension, cerebrovascular disease, COPD, pulmonary mass, and other problems. Currently a resident at [facility]. Hospitalized at [facility] in September 2018. He was initially hospitalized for evaluation of hip pain after a fall. He fell again during his hospital stay. CT showed chronic microvascular changes, suspected meningioma left frontal lobe. MRI demonstrated an acute infarct of the right [employer] territory affecting the right occipital lobe as well as additional suspected regional embolic infarcts, old left cerebellar infarct, chronic small vessel disease, 2 cm left frontal mass consistent with meningioma. CTA of cervical vessels demonstrated high-grade stenosis of the vertebral arteries. No apparent cardioembolic source per echocardiogram. Rhythm on 12-lead EKG sinus bradycardia. During that hospital stay he was found to have a right perihilar mass measuring 6.6 cm. Significant smoking history. Diagnostic options were discussed and patient opted not to pursue a tissue diagnosis. He was discharged to rehab on 10/05/18 and later transferred to [facility]. Last week he was treated for influenza. Sent to ED tonight because of worsening cough and shortness of breath. Cough productive of yellow sputum. No chest pain. In the ED he was found to be tachycardic with a heart rate of 140. Received IV metoprolol with slowing of his ventricular rate, making underlying flutter waves apparent. Admission Exam Per Admitting Provider Constitutional: WD/WN, vitals as above no acute distress Eyes: PERRL, conjunctivae normal, anicteric sclerae ENMT: Ears: + hearing impairment Mouth: + dentition abnormality (poor) Neck: trachea midline, no thyromegaly Respiratory: normal respiratory effort, lungs clear to auscultation no respiratory distress Auscultation: + rhonchi (right base) Cardiovascular: Rate/Rhythm: + tachycardic; + abnormal rhythm (irregular) Heart Sounds: + murmur (II/ sys murmur(s) heard at base and apex); no gallop and no cardiac rub Vessels: normal peripheral pulses (pedal pulses diminished); no JVD Extremities: normal capillary refill (bilat toes about 2 sec); no calf tenderness and no edema Gastrointestinal normal bowel sounds, soft, nontender, no hepatosplenomegaly Musculoskeletal: Head/Neck/Chest: neck supple Extremities: + abnormal strength (mild weakness of lower extremities), no cyanosis and no clubbing Skin: no rashes, warm and dry + ulcer (superficial ulcer right leg, clean base) Neurologic: PERRL, EOMI no facial palsy no dysarthria or aphasia patellar DTR's 2/2 bilat Psychiatric: Orientation: alert, oriented to person and oriented to place; + not oriented to time Affect: euthymic affect Genitourinary: Buenrostro cath Lymphatic: no cervical lymphadenopathy Principal Diagnosis Pneumonia: Leukocytosis: Acute respiratory failure Atrial flutter with rapid ventricular response: CAD Chronic systolic heart failure: Bradycardia DANITA Discharge Exam General- No acute distress Head- atraumatic Eyes- PERRL, EOMI, ENT- oropharynx clear Neck- supple, no JVD Lungs- Diminished BS Heart- no murmur Abdomen- normal bowel sounds, soft, nontender Extremities- no calf tenderness Neuro- alert, oriented, PERRL, EOMI; no facial palsy Skin- warm & dry Discharge Data Allergies Allergy/AdvReac Type Severity Reaction Status Date / Time cephalexin [From Keflex] Allergy Mild Hives Verified 01/28/19 04:12 Penicillins Allergy Mild HIVES Verified 01/28/19 04:12 ether AdvReac Unknown Verified 01/28/19 04:12 Consultations 01/28/19 05:14 ED Decision to Admit Stat 01/28/19 07:43 Consult Cardiology Routine 01/30/19 12:59 Consult Nephrology Routine 02/02/19 11:01 Consult Case Management - Discharge Planning Routine 02/03/19 07:43 Consult Infectious Diseases Routine Ordered Studies 01/31/19 11:30 FL video swallow Routine XR chest 1V portable CLINICAL HISTORY: Shortness of breath COMPARISON STUDY: 02/08/2019 FINDINGS: There are postsurgical changes of a midline sternotomy. The heart remains enlarged. There is improving congestive failure/fluid overload. There is persistent dense right lower lobe pulmonary consolidation. Small pleural effusions are suspected.[ There is a focus of increased density within the right infrahilar region. This likely corresponds to the previously described right infrahilar mass.. IMPRESSION: 1. Heart is mildly with improving congestive failure/fluid overload 2. Persistent dense right lower lobe pulmonary consolidation 3. Suspected small pleural effusions 4. Suspected right perihilar mass. Electronically signed by: Fran La M.D. 02/09/2019 7:38 AM Dictated: 02/09/19 0734 Transcribed: 02/09/19 0734 SINGLE VIEW CHEST CLINICAL HISTORY: Dyspnea. FINDINGS: 2 AP, portable, upright chest radiographs are compared to study dated 02/03/2019. The examination is degraded by portable technique and patient rotation. The patient is status post midline sternotomy. The heart is enlarged and there is atherosclerotic calcification of the thoracic aorta. There is pulmonary vascular congestion with mild interstitial edema. Emphysema and chronic interstitial thickening are similar to previous. There is dense airspace consolidation at the right lung base. Small pleural effusions are identified. No pneumothorax is seen. The skeletal structures are osteopenic. The bony thorax is grossly intact. Advanced arthritic change is seen in the shoulders. IMPRESSION: 1. Cardiomegaly with evidence of congestive failure. 2. Small pleural effusions. 3. There is dense airspace consolidation at the right lung base concerning for superimposed pneumonia. Clinical correlation will be required. Radiographic follow-up to resolution is recommended. Electronically signed by: Jarad Schmidt M.D. 02/08/2019 12:49 AM Dictated: 02/08/19 0047 Transcribed: 02/08/19 0047 XR chest 1V portable HISTORY: Pneumonia. Follow-up. COMPARISON: Chest 01/28/2019. FINDINGS: No pneumothorax. Small bilateral pleural effusions. Progressive interstitial and vascular thickening. Bibasilar densities, right greater than left have also progressed. The heart is mildly enlarged. There are poststernotomy changes. IMPRESSION: 1. Interval development of pulmonary edema and small bilateral pleural effusions. 2. Bibasilar densities, right greater than left, have also progressed. This could represent worsening pneumonia or pulmonary edema. Electronically signed by: Glenn Mayen M.D. 02/03/2019 8:17 AM Dictated: 02/03/19 0808 Transcribed: 02/03/19 0808 FL video swallow HISTORY: Possible pneumonia. r/o aspiration TECHNIQUE: Video fluoroscopic evaluation of swallowing was performed in the AP and lateral projections by the speech pathology staff. The patient is fed nectar-thick and thin liquid barium, a barium coated wafer, and barium pudding. FLUOROSCOPY TIME: 3 minutes. A cine loop was submitted. COMPARISON STUDY: None. FINDINGS: Large anterior osteophytes at C4-C6 resulting in mass effect along the distal hypopharynx. There is incomplete epiglottic deflection with pooling of barium in the pyriform sinuses due to the mass effect from the anterior osteophytes. This results in penetration without aspiration. IMPRESSION: 1. No aspiration identified. However, there is moderate residue at the pyriform sinuses likely due to the mass effect from the large anterior osteophytes at the distal hypopharynx. 2. Please see the speech pathologist report for detailed findings and recommendations. Electronically signed by: Glenn Mayen M.D. 01/31/2019 1:08 PM Dictated: 01/31/19 1305 Transcribed: 01/31/19 1305 XR chest 1V portable HISTORY: 83 years-old Male Tachycardia acute tachycardia COMPARISON: Chest radiograph 09/27/2018, chest CT 09/26/2018 TECHNIQUE: Portable AP view of the chest FINDINGS: Cardiac silhouette is mildly enlarged, unchanged. Prior median sternotomy and CABG. Emphysema. No pneumothorax, pleural effusion or overt pulmonary edema. Masslike opacity about the right infrahilar distribution redemonstrated measuring approximately 6.4 x 4.9 cm, previously approximately 5.8 x 3.8 cm on 09/27/2018. Unchanged 1.3 cm pulmonary nodule of the left lower lobe. Right greater left bibasilar patchy alveolar opacities are noted. Degenerative changes of the shoulders and spine. IMPRESSION: 1. Right infrahilar mass appears to have increased in size from comparison study. 2. Pulmonary nodule of the left lower lobe appears unchanged. 3. New right greater than left patchy bibasilar alveolar opacities are suggestive of pneumonitis in the appropriate clinical setting. The above report was generated using voice recognition software. It may contain grammatical, syntax or spelling errors. Electronically signed by: William Renee M.D. 01/28/2019 6:32 AM Dictated: 01/28/19628 Transcribed: 01/28/19628 Hospital Course (1) Pneumonia: (2) Leukocytosis: Possible related to aspiration pneumonia CXR showed dense airspace consolidation at the right lung base concerning for superimposed pneumonia WBC trending down to 11K Afebrile and normal procalcitonin On Ertapenem IV ay 5 Will change abx to oral doxycycline on discharge for 2 more days ID on board Continue monitor CBC (3) Acute respiratory failure: Possible related to PNA VS CHF CXR showed Cardiomegaly with evidence of congestive failure and dense airspace consolidation at the right lung base Continue lasix Oral daily, if he shows any side of overload additional lasix can be given prn saturated well on RA Clinically improves (4) Atrial flutter with rapid ventricular response: Rate control on metoprolol Continue Warfarin, INR 1.7 today Continue coumadin Continue monitor PT/INR Metoprolol decreased to 12.5mg due to bradycardia Heart rate has been stable on metoprolol 12.5 mg Follow up with cardiology Monitor PT/INR (5) CAD (coronary artery disease): h/o CABG, denies any chest pain. Continue ASA, lisinopril and statin. Continue low dose metorprolol (6) Chronic systolic heart failure: CXR showed Heart is mildly with improving congestive failure/fluid overload Continue lasix daily If shows any side of overload additional lasix can be given prn Clinically improves (7) Aortic stenosis, moderate: History of moderate with bicuspid aortic valve. Hemodynamically stable. (8) HTN (hypertension): BP stable (9) Lung mass: Declined bronchoscopy (10) COPD (chronic obstructive pulmonary disease): chronic, no active wheezing, oxygenating well on room air. 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 Off clopidogrel. Now with atrial flutter. long-term Warfarin, INR 1.7 today coumadin increased to 3.5mg Continue aspirin. (12) BPH (benign prostatic hyperplasia): BPH with urinary retention followed by [facility]. TURP considered, but postponed in light of recent stroke. Continue Buenrostro catheter. (13) Leg ulcer: Chronic ulcer right leg-pt would not let me evaluate this tonight. Wound Care Nursing. (14) Bradycardia: Possible tachybrady syndrome HR dropped in the 30's HR rate stable since metoprolol decreased to 12.5mg Continue metoprolol decreased to 12.5 mg Continue monitor in tele Stable (15) Diarrhea: Resolved (16) DANITA (acute kidney injury): Monitor creatinine Hypokalemia K stable Monitor BMP (17) DVT prophylaxis: On coumadin with INR 1.7 Continue coumadin Lovenox subq until INR therapeuttic CODE STATUS DNR Dispo: Family Medicine follow-up with Dr. Salcido. Waiting for placement to discharge Continue buenrostro cath on discharge Total Time Total Time Spent Total Time Spent (In Minutes): 35 minutes Total Time Includes: Examination of the Patient, Discharge Planning, Medication Reconciliation, Communication With Other Providers and Other Discharge Plan Discharge Items Patient Disposition: Transfer Longterm [facility] Reason For Visit: ATRIAL FLUTTER, POSSIBLE PNEUMONIA Discharge Diagnosis: Pneumonia: Leukocytosis: Acute respiratory failure Atrial flutter with rapid ventricular response: CAD Chronic systolic heart failure: Bradycardia DANITA Discharge Goals: Decrease discomfort, Improve disease control, Improve function and Increase independence Activity: Resume your previous activity Activity Comment: As tolerated Non-emergency contact: Primary Care Provider, Volunteer Services Supervisor and Urologist Call non-emergency contact if: you have any medication questions and your temperature is above 101 Follow-up/Referrals: Rodrick Salcido [Primary Care Provider] - Diet: Heart Healthy Addtl Provider Instructions: Follow up with your primary care provider at the [facility] Follow up with cardiology ([facility] cardiology). Please call to schedule for appointment Follow up with urology Keep buenrostro catheter for now Continue monitor PT/INR (INR 1.7 today) Check INR on Sunday Monitor Heart rate and blood presure Avoid any medication that can damage the kidney Fall precaution Physical and occupational therapy Aspiration precaution Continue lasix Oral daily, (if shows any side of fluid overload additional lasix can be given prn) Complete course of antibiotic with doxycycline. Prescriptions: New warfarin [Coumadin] 3 mg Tablet 3.5 mg PO DAILY@1600 30 Days Qty: 30 RF: 0 metoprolol tartrate 25 mg Tablet 12.5 mg PO BID 30 Days Qty: 30 RF: 0 ipratropium bromide 0.02 % Solution 0.5 mg Inhalation Q6R PRN (Reason: shortness of breath or wheezing) 30 Days Qty: 75 RF: 0 levalbuterol HCl 1.25 mg/0.5 mL Solution For Nebulization 1.25 mg Inhalation Q6R PRN (Reason: shortness of breath or wheezing) Qty: 30 RF: 0 doxycycline hyclate 100 mg tablet 100 mg PO BID 2 Days Qty: 4 RF: 0 Continued atorvastatin 40 mg Tablet 40 mg PO QPM RF: 0 aspirin [Aspirin Low Dose] 81 mg Tablet,Delayed Release (Dr/Ec) 81 mg PO QAM RF: 0 acetaminophen 500 mg Tablet 500 mg PO Q4 MDD 3g/24hr PRN (Reason: Fever Or Pain) RF: 0 tamsulosin 0.4 mg Capsule 0.4 mg PO QPM RF: 0 docusate sodium 100 mg Capsule 100 mg PO BID RF: 0 finasteride 5 mg Tablet 5 mg PO QAM RF: 0 brimonidine 0.15 % Drops 1 drp OPHTHALMIC (EYE) TID RF: 0 cholecalciferol (vitamin D3) [Vitamin D3] 1,000 unit Capsule 1,000 unit PO QAM RF: 0 glucosamine sulfate 1,000 mg Capsule 1,000 mg PO BID RF: 0 escitalopram oxalate 5 mg Tablet 5 mg PO QAM RF: 0 dorzolamide-timolol (PF) [Cosopt (PF)] 2-0.5 % Dropperette 1 drp OPL BID RF: 0 PreserVision AREDS-2 [id number] Capsule 1 tab PO BID RF: 0 potassium chloride 10 mEq Capsule, Extended Release 10 meq PO DAILY RF: 0 Benadryl Itch Stopping 1-0.1 % Cream 1 applic TOPICAL TID PRN (Reason: Itching) RF: 0 hydrocortisone 1 % Cream 1 applic TOPICAL TID PRN (Reason: itching/dry skin) RF: 0 Changed furosemide 40 mg Tablet 20 mg PO DAILY 30 Days Qty: 15 RF: 0 Discontinued carvedilol 6.25 mg Tablet 6.25 mg PO BIDM RF: 0 clopidogrel 75 mg Tablet 75 mg PO QAM RF: 0 lisinopril 5 mg Tablet 5 mg PO QAM RF: 0 furosemide 20 mg Tablet 20 mg PO Q OTHER DAY RF: 0 Stand-Alone Forms: [facility] Discharge Orders: Discharge Order (Routine); Ordered 02/12/19 Ordered By: Ashlyn Stewart Skilled Items Patient informed of condition?: Yes DNR: Yes Discharge Level of Care: Skilled Communicable Disease: No Discharge Prognosis: Stable Admission Data Admit Date/Time: 01/28/19 05:33 Attending Provider: Ashlyn Stewart Admit Provider: Elliot De Leon Primary Care Provider: Rodrick Salcido Other Providers: Elliot De Leon ; Álvaro Houston ; Viji Rankin ; Bart Hi ; Marty Calderon Service: Telemetry Other Interventions: Discharge Summary Assessment (RN) Last Done: 02/12/19 13:23 DC Date/Time DO NOT enter until pt leaves facility: 02/12/19 13:05
== END 2019-02-12 13:05 | DRG 308 ==
LOC: ED 03:32 → SUATTDRO 05:33 → 2S 05:33